=== PATIENT | female | born 1950 | race Caucasian/White ===

== ENCOUNTER → 2017-01-23 | Outpatient (CLI) | payer OTHER ==
[~2017-01-23] MED LIST: CHOL100027 PO; CLB200 PO; CLC100 PO; CLTP PO; CZR50 PO; DIAZ2TAB PO; FLNIN NAE; KETO2SHA TOP; LRS20 PO; METF500T PO; METO50TA7 PO; NITR1CAP32 PO; PHENOBARBITAL 64.8 MG PO; POLY335040 PO; RANI300T2 PO; SALI0.6515 INH; SKINOIN27 TOP; ZOLE5INJ; [UNRECOGNIZED DRUG - OTHER] PO
[2017-01-23 09:51] LABS: ALT/SGPT 26 U/L (12-78); BLOOD UREA NITROGEN 7 mg/dl (7-18); BUN/CREATININE RATIO 14.8 (10-20); CALCIUM 9.1 mg/dl (8.5-10.1); CARBON DIOXIDE 28 mmol/L (21-32); CHLORIDE 99 mmol/L (98-107); CHOLESTEROL 243 mg/dl (0-200); CREATININE 0.46 mg/dl (0.60-1.20); GLUCOSE 91 mg/dl (70-99); POTASSIUM 4.6 mmol/L (3.5-5.1); SODIUM 134 mmol/L (136-145)
[2017-01-23 09:54] LABS: ALB/GLOB RATIO 0.9 (0.9-2); ALKALINE PHOSPHATASE 109 U/L (45-117); AST/SGOT 17 U/L (15-37); CHOLESTEROL/HDL RATIO 6.9; HDL CHOLESTEROL 35 mg/dl; LDL CHOLESTEROL CALCULATED 140 mg/dl; TRIGLYCERIDES 342 mg/dl (0-150); VERY LOW DENSITY LIPOPROT CALC 68 mg/dl
[2017-01-23 10:54] LABS: ESTIMATED AVERAGE GLUCOSE 105 mg/dl; HA1C FLAG Normal (Normal)
== END | disposition home or self-care (01) ==
LOC: C.LAB 07:59
PROVIDERS: ATTEND Family Medicine
DX: Z12.11 Encounter for screening for malignant neoplasm of colon (principal); G40.909 Epilepsy, unspecified, not intractable, without status epilepticus; Z11.59 Encounter for screening for other viral diseases; R79.9 Abnormal finding of blood chemistry, unspecified

== ENCOUNTER → 2017-03-22 | Outpatient (CLI) | payer OTHER ==
--- NOTE | 2017-03-25 08:02 | MAMMOGRAPHY REPORT ---
BILATERAL DIGITAL SCREENING MAMMOGRAM WITH CAD: 03/22/2017 CLINICAL HISTORY: Routine screening. TECHNIQUE: Current study was also evaluated with a Computer Aided Detection (CAD) system. This exam is extremely limited given the patient's condition and inability to tolerate the exam, and only bilat eral cc views could be obtained. COMPARISON: Comparison is made to exams dated: 03/20/2016 mammogram, 03/15/2015 mammogram, 03/11/2014 m ammogram, 03/05/2013 mammogram, 02/29/2012 mammogram, and 02/21/2011 mammogram - [facility] nter. BREAST COMPOSITION: The tissue of both breasts is heterogeneously dense, which may obscure small mas ses. FINDINGS: No suspicious masses, calcifications, or areas of architectural distortion are noted in ei ther breast. There has been no significant interval change compared to prior exams. Scattered bilate ral benign-appearing calcifications are again noted. IMPRESSION: ACR BI-RADS CATEGORY 2: BENIGN Limited exam, as only bilateral CC views could be obtained. Within the limitations of the exam, ther e is no mammographic evidence of malignancy. A 1 year screening mammogram is recommended. The patien t will receive written notification of the results. Approximately 10% of breast cancers are not detected with mammography. A negative mammographic report should not delay biopsy if a clinically suggestive mass is present. Emelia Lozano M.D. /:03/22/2017 15:36:37 Hvac R Tech: Shahrzad Rao, [facility] letter sent: Normal 1/2 BI-RADS Code: ACR BI-RADS Category 2: Benign
== END | disposition home or self-care (01) ==
LOC: C.MAMM 13:57
PROVIDERS: ATTEND Family Medicine
DX: Z12.31 Encounter for screening mammogram for malignant neoplasm of breast (principal)

== ENCOUNTER → 2017-09-03 | Outpatient (CLI) | payer OTHER ==
[~2017-09-03] MED LIST changes: -METO50TA7 PO; +METO50TA8 PO
[2017-09-03 12:25] LABS: ALBUMIN 3.5 gm/dl (3.4-5.0); BLOOD UREA NITROGEN 5 mg/dl (7-18); CALCIUM 8.4 mg/dl (8.5-10.1); CARBON DIOXIDE 22 mmol/L (21-32); CREATININE 0.37 mg/dl (0.60-1.20); GLUCOSE 88 mg/dl (70-99); POTASSIUM 4.4 mmol/L (3.5-5.1); SODIUM 128 mmol/L (136-145)
[2017-09-03 12:29] LABS: ALKALINE PHOSPHATASE 113 U/L (45-117); ALT/SGPT 27 U/L (12-78); AST/SGOT 19 U/L (15-37); CHOLESTEROL 135 mg/dl (0-200); LDL CHOLESTEROL CALCULATED 54 mg/dl; TOTAL PROTEIN 7.8 gm/dl (6.4-8.2)
== END | disposition home or self-care (01) ==
LOC: C.LAB 09:43
PROVIDERS: ATTEND Family Medicine
DX: Z13.9 Encounter for screening, unspecified (principal); Z79.899 Other long term (current) drug therapy; E78.5 Hyperlipidemia, unspecified

== ENCOUNTER 2019-09-27 10:11 | Inpatient (IN) ==
[2019-09-27] MEDS ORDERED: SODIUM CHLORIDE 0.9% 500 ML IV SCH (10:30)
--- NOTE | 2019-09-27 10:40 | Emergency Department Note ---
Impression & Plan Weakness, Acute dehydration, Acute UTI, Diarrhea, Phenobarbital toxicity ED Provider Note Provider: Molina Park MD DATE OF SERVICE: 09/27/2019 CHIEF COMPLAINT: HISTORY OF PRESENT ILLNESS: Patient is a 69-year-old female with a history of cerebral palsy and is nonverbal [facility] urine output decreased abil ity to eat and the diarrhea. Was evaluated here on September 17. Had negative Haydee testing at this time and similar complaints distancing herself and was sent back to [facility]. Been in contact with her primary doctor who put her on Cipro for possible UTI she has a history of been on these meds for about 6 days according to hot plate plywood press laborer. Patient herself is nonverbal and unable to provide additional history. Is been no reported falls or other sick contacts. Evidently did hold her evening dose of diazepam yesterday to see if this would improve things and it really has not. Was able to get in her morning meds this morning. Did obtain [facility] medical record phone encounters indicating the patient has been added [facility] several days ago. Indicate and confirm report that patient's had decreased oral intake and seems a bit less awake. REVIEW OF SYSTEMS: Limited secondary to mental status. PAST MEDICAL HISTORY: As noted above MEDICATIONS: Reviewed nursing notes facility notes significant for Cipro, phenobarbital, diazepam, baclofen SOCIAL HISTORY: Nonverbal currently residing at [facility]. No tobacco use reported. PHYSICAL EXAM: GENERAL: Laying on the stretcher not making eye contact nonverbal, she does have a slight cough Head: Atraumatic EYES: No injection, discharge or icterus. Disconjugate gaze. NECK: Trachea midline. Supple. ENT: Mucous membranes pink and moist. LUNGS: Airway patent. No retractions. Breath sounds diminished. HEART: Regular rate and rhythm. No chest wall tenderness ABDOMEN: Soft and non-tender, may be slightly distended. No guarding or rebound. SKIN: Acyanotic, warm, dry, without rashes EXTREMITIES: Without swelling, tenderness or deformity NEUROLOGICAL: Not making eye contact. Nonverbal. Road Gang Supervisor states the patient is at her neurological baseline. Muscle wasting in all extremities. No response to pain or movement of the lower extremities. Will withdraw the upper extremities. EK bpm normal sinus rhythm. Normal QTC. No PVCs. No acute ST segment elevation or depression. CONTINUOUS CARDIAC MONITORING: was ordered and showed a heart rate of 74 bpm in normal sinus rhythm Hypertension was referred to the hospitalist/PCP HOSPITAL COURSE: 1020 Patient was first seen and H&P performed. 1247 Patient reassessed and updated patient's hot plate plywood press laborer. [facility] hospitalist be contacted. Patient's laboratory studies and imaging reviewed. Differential includes Infection, dehydration, metabolic abnormality, hypo /hyperglycemia, electrolyte disturbance, anemia, hypoxia, cardiac sources, intracerebral event, toxicologic, neurologic, as well as other pathologies. IMPRESSION/MEDICAL DECISION MAKING: Patient is difficult to examine given her nonverbal status and she does have a complex medical history. Is on multiple medications that may make her somewhat somnolent and also has a history of infections as well/UTIs that could be at play here. Concern for some dehydration given the report of some diarrhea and decreased intake and decreased urination. Has been on Cipro by report of the hot plate plywood press laborer for several days without change and actually some worsening. Abdomen is not safely tender but does appear somewhat distended. Difficult to assess her neurological baseline given again her history of cerebral palsy at its complications. Given this a broad differential was obtained. CT of the head, chest, and abdomen pelvis was obtained. I doubt this represents PE. EKG was completed. Troponin was sent but I doubt ACS. I doubt acute dissection. Symptomatology does not seem that obstructive but again imaging was obtained. CT scan show possibly bronchitis but no other acute pathology. Laboratory studies reveal no significant evidence of pancreatitis or hepatitis. Lactate is elevated at 2.7. BUN is mildly elevated and think this is likely represents some dehydration. Given a fluid bolus. Given resistant history and concern with a urine broad-spectrum vancomycin/aztreonam antibiotic selection was used. I do not feel that she is acutely septic at this point however. Later in discussed with [facility] hospitalist for further evaluation admission here in the hospital given her decreased oral intake and these findings; will hold vancomycin. A jeff placed later after IVF showed clean urine so now questions UTI as a real. Due to difficult with IV status only one blood culture was ob tained prior to administration of antibiotics. Patient has not had significant diarrhea here and by report not having copious amounts but C. difficile colitis could be a consideration if this does worsen. Given lack of colitis findings on the CT and the lack of significant diarrheal symptoms worsening here will hold off on Cdiff testing his time however. Phenobarbital level is significant elevat ed and may be entire cause of her weakness. This should decrease with hydration and holding the med. DIAGNOSIS: Weakness, dehydration, diarrhea, elevated phenobarbital level DISPOSITION: Hospitalist will evaluate Past Med/Surg History Social History Preferred Language: Danish Communication Ability: Impaired Beliefs That Will Affect Care: None marital status: Single Current Living Situation: Other Current Living Situation Comment: [id number] current occupational status: disabled Feels Safe at Home: Yes Smoking Status: Never smoker Hx Alcohol Use: No Hx Substance Use: No Allergies Allergies Allergy/AdvReac Type Severity Reaction Status Date / Time ampicillin Allergy Unknown rash Verified 09/27/19 14:01 carbidopa Allergy Unknown . Verified 09/27/19 11:14 levodopa Allergy Unknown . Verified 09/27/19 11:14 Penicillins Allergy Unknown rash Verified 09/27/19 14:01 Sinemet Allergy Unknown . Verified 05/06/13 12:46 Home Meds Home Medications Medication Instructions Recorded Confirmed atorvastatin 20 mg PO PM 09/05/18 09/27/19 baclofen 20 mg PO QID 09/05/18 09/27/19 calcium carbonate-vit D3-min 1 tab PO DAILY 09/05/18 09/27/19 [Calcium 600 + Minerals] carbamide peroxide [Debrox] 5 drp OTIC (EAR) WK 09/05/18 09/27/19 cholecalciferol (vitamin D3) 1,000 unit PO DAILY 09/05/18 09/27/19 [Vitamin D3] dextran 70-hypromellose 1 - 2 drp OPHTHALMIC (EYE) 09/05/18 09/27/19 [Artificial Tears([id number])] DIRECTED diazepam 5 mg PO TID 09/05/18 09/27/19 fluticasone propionate 2 spray INTRANASAL DAILY 09/05/18 09/27/19 loperamide 2 mg PO DIRECTED 09/05/18 09/27/19 loratadine 10 mg PO DAILY 09/05/18 09/27/19 losartan 50 mg PO QPM 09/05/18 09/27/19 meloxicam 7.5 mg PO DAILY 09/05/18 09/27/19 metformin 500 mg PO DAILY 09/05/18 09/27/19 metoprolol succinate 50 mg PO QPM 09/05/18 09/27/19 polyethylene glycol 3350 [Miralax] 17 g PO DAILY PRN 09/05/18 09/27/19 docusate sodium [Stool Softener] 200 mg PO DAILY 09/18/19 09/27/19 estradiol [Estrace] 2 g VAGINAL 2XWK 09/18/19 09/27/19 famotidine 40 mg PO DAILY 09/18/19 09/27/19 fluconazole 100 mg PO DAILY 09/18/19 09/27/19 [id number] 1 tab PO DAILY 09/18/19 09/27/19 [Cerovite Senior] olopatadine 1 drp OPHTHALMIC (EYE) DAILY 09/18/19 09/27/19 phenobarbital 120 mg PO DAILY 09/18/19 09/27/19 sodium chloride [Saline Nasal Mist] 2 spray INTRANASAL DAILY 09/18/19 09/27/19 Results & Data (ED) Vital Signs Vital Signs - 24 hr 09/27/19 10:27 09/27/19 12:09 09/27/19 13:49 Temperature 36.6 C Temperature Source Oral Pulse Rate 89 Pulse Rate [Left Finger] 73 72 Pulse Rhythm Regular Pulse Strength Normal Respiratory Rate 20 8 L 10 L Respiratory Effort / Characteristics Non-Labored Spontaneous Respiratory Depth Normal Respiratory Pattern Regular Blood Pressure 153/72 H Blood Pressure [Right Arm] 127/64 148/66 H Blood Pressure Mean 99 Blood Pressure Mean [Right Arm] 85 93 Blood Pressure Position Sitting Pulse Oximetry 96 97 94 Oxygen Delivery Method Room Air Sepsis Recent Fever Within 48 Hours No Sepsis New/Unexplained Change in Mental Status No Sepsis Action Taken by Nursing No Action Required Laboratory Data Result diagrams: 09/27/19 14:16 09/27/19 15:03 Lab Results 09/27/19 09/27/19 09/27/19 Range/Units 12:04 12:04 12:04 WBC 7.13 (4.8-10.8) K/uL RBC 4.24 (4.2-5.4) M/uL Hgb 14.0 (12.0-16.0) g/dL Hct 43.0 (37-47) % MCV 101.4 H (80-100) fL MCH 33.0 (25-34) pg MCHC 32.6 (32-36) g/dL RDW Std Deviation 52.0 H (36.4-46.3) fL RDW Coeff of Con 14.0 (11.5-14.5) % Plt Count 247 (130-400) K/uL MPV 10.4 (7.4-10.4) fL Immature Gran % (Auto) 0.3 % Neut % (Auto) 63.6 % Lymph % (Auto) 22.6 % [place] % (Auto) 7.3 % Eos % (Auto) 5.9 % Baso % (Auto) 0.3 % Immature Gran # (Auto) 0.02 (0.00-0.02) K/uL Neut # (Auto) 4.54 (1.4-6.5) K/uL Lymph # (Auto) 1.61 (1.2-3.4) K/uL [place] # (Auto) 0.52 (0.11-0.59) K/uL Eos # (Auto) 0.42 (0-0.5) K/uL Baso # (Auto) 0.02 (0-0.2) K/uL PT 12.5 H (9.0-12.0) Seconds INR 1.2 H (0.9-1.1) Sodium 139 (136-145) mmol/L Potassium 3.8 (3.5-5.1) mmol/L Chloride 108 H (98-107) mmol/L Carbon Dioxide 28 (21-32) mmol/L Anion Gap 3.0 (3-11) BUN 26 H (7-18) mg/dl Creatinine 0.62 (0.6-1.2) mg/dl Est Cr Clr Drug Dosing Not Reportable Est GFR ( Amer) 106.6 Est GFR (Non-Af Amer) 92.0 BUN/Creatinine Ratio 42.5 H (10-20) Glucose 85 (70-99) mg/dl Lactate (0.4-2.0) mmol/L Calcium 9.5 (8.5-10.1) mg/dl Magnesium 2.0 (1.8-2.4) mg/dl Total Bilirubin 0.2 (0.2-1) mg/dl AST 31 (15-37) U/L ALT 33 (12-78) U/L Alkaline Phosphatase 105 (45-117) U/L Ammonia (11-32) umol/L Troponin I < 0.015 (0-0.045) ng/ml Total Protein 8.8 H (6.4-8.2) gm/dl Albumin 3.8 (3.4-5.0) gm/dl Globulin 5.0 H (2.5-4.0) gm/dl Albumin/Globulin Ratio 0.8 L (0.9-2) Lipase 96 (73-393) U/L TSH 2.860 (0.300-4.500) uIu/ml Urine Color Urine Appearance (Clear) Urine pH (4.5-7.5) Ur Specific [place] (1.000-1.030) Urine Protein (Negative) Urine Glucose (UA) (Negative) Urine Ketones (Negative) Urine Blood (Negative) Urine Nitrite (Negative) Urine Bilirubin (Negative) Urine Urobilinogen (Negative) Ur Leukocyte Esterase (Negative) Phenobarbital (15-40) mcg/mL 09/27/19 09/27/19 09/27/19 Range/Units 12:04 12:04 12:04 WBC (4.8-10.8) K/uL RBC (4.2-5.4) M/uL Hgb (12.0-16.0) g/dL Hct (37-47) % MCV (80-100) fL MCH (25-34) pg MCHC (32-36) g/dL RDW Std Deviation (36.4-46.3) fL RDW Coeff of Con (11.5-14.5) % Plt Count (130-400) K/uL MPV (7.4-10.4) fL Immature Gran % (Auto) % Neut % (Auto) % Lymph % (Auto) % [place] % (Auto) % Eos % (Auto) % Baso % (Auto) % Immature Gran # (Auto) (0.00-0.02) K/uL Neut # (Auto) (1.4-6.5) K/uL Lymph # (Auto) (1.2-3.4) K/uL [place] # (Auto) (0.11-0.59) K/uL Eos # (Auto) (0-0.5) K/uL Baso # (Auto) (0-0.2) K/uL PT (9.0-12.0) Seconds INR (0.9-1.1) Sodium (136-145) mmol/L Potassium (3.5-5.1) mmol/L Chloride (98-107) mmol/L Carbon Dioxide (21-32) mmol/L Anion Gap (3-11) BUN (7-18) mg/dl Creatinine (0.6-1.2) mg/dl Est Cr Clr Drug Dosing Est GFR ( Amer) Est GFR (Non-Af Amer) BUN/Creatinine Ratio (10-20) Glucose (70-99) mg/dl Lactate 2.7 H* (0.4-2.0) mmol/L Calcium (8.5-10.1) mg/dl Magnesium (1.8-2.4) mg/dl Total Bilirubin (0.2-1) mg/dl AST (15-37) U/L ALT (12-78) U/L Alkaline Phosphatase (45-117) U/L Ammonia 17.2 (11-32) umol/L Troponin I (0-0.045) ng/ml Total Protein (6.4-8.2) gm/dl Albumin (3.4-5.0) gm/dl Globulin (2.5-4.0) gm/dl Albumin/Globulin Ratio (0.9-2) Lipase (73-393) U/L TSH (0.300-4.500) uIu/ml Urine Color Urine Appearance (Clear) Urine pH (4.5-7.5) Ur Specific [place] (1.000-1.030) Urine Protein (Negative) Urine Glucose (UA) (Negative) Urine Ketones (Negative) Urine Blood (Negative) Urine Nitrite (Negative) Urine Bilirubin (Negative) Urine Urobilinogen (Negative) Ur Leukocyte Esterase (Negative) Phenobarbital 61.2 H* (15-40) mcg/mL 09/27/19 Range/Units 13:36 WBC (4.8-10.8) K/uL RBC (4.2-5.4) M/uL Hgb (12.0-16.0) g/dL Hct (37-47) % MCV (80-100) fL MCH (25-34) pg MCHC (32-36) g/dL RDW Std Deviation (36.4-46.3) fL RDW Coeff of Con (11.5-14.5) % Plt Count (130-400) K/uL MPV (7.4-10.4) fL Immature Gran % (Auto) % Neut % (Auto) % Lymph % (Auto) % [place] % (Auto) % Eos % (Auto) % Baso % (Auto) % Immature Gran # (Auto) (0.00-0.02) K/uL Neut # (Auto) (1.4-6.5) K/uL Lymph # (Auto) (1.2-3.4) K/uL [place] # (Auto) (0.11-0.59) K/uL Eos # (Auto) (0-0.5) K/uL Baso # (Auto) (0-0.2) K/uL PT (9.0-12.0) Seconds INR (0.9-1.1) Sodium (136-145) mmol/L Potassium (3.5-5.1) mmol/L Chloride (98-107) mmol/L Carbon Dioxide (21-32) mmol/L Anion Gap (3-11) BUN (7-18) mg/dl Creatinine (0.6-1.2) mg/dl Est Cr Clr Drug Dosing Est GFR ( Amer) Est GFR (Non-Af Amer) BUN/Creatinine Ratio (10-20) Glucose (70-99) mg/dl Lactate (0.4-2.0) mmol/L Calcium (8.5-10.1) mg/dl Magnesium (1.8-2.4) mg/dl Total Bilirubin (0.2-1) mg/dl AST (15-37) U/L ALT (12-78) U/L Alkaline Phosphatase (45-117) U/L Ammonia (11-32) umol/L Troponin I (0-0.045) ng/ml Total Protein (6.4-8.2) gm/dl Albumin (3.4-5.0) gm/dl Globulin (2.5-4.0) gm/dl Albumin/Globulin Ratio (0.9-2) Lipase (73-393) U/L TSH (0.300-4.500) uIu/ml Urine Color Yellow Urine Appearance Slightly Cloudy (Clear) Urine pH 5.0 (4.5-7.5) Ur Specific [place] >= 1.030 (1.000-1.030) Urine Protein Negative (Negative) Urine Glucose (UA) Negative (Negative) Urine Ketones Negative (Negative) Urine Blood Negative (Negative) Urine Nitrite Negative (Negative) Urine Bilirubin Negative (Negative) Urine Urobilinogen Negative (Negative) Ur Leukocyte Esterase Negative (Negative) Phenobarbital (15-40) mcg/mL Administered Medications Diazepam (Valium) 5 mg PO TID JAYLA Stop: 10/27/19 13:59 Last Admin: 09/27/19 15:48 Dose: Not Given Documented by: [id number] Discontinued Medications Sodium Chloride (Nss) 500 mls @ 999 mls/hr IV .Q31M JAYLA Stop: 09/27/19 11:00 Last Infusion: 09/27/19 14:54 Dose: 0 mls/hr Documented by: [id number] Admin: 09/27/19 12:08 Dose: 999 mls/hr Documented by: [id number] Vancomycin HCl 1,000 mg/ (Sodium Chloride) 520 mls @ 200 mls/hr IV NOW ONE Stop: 09/27/19 14:46 Last Admin: 09/27/19 13:19 Dose: Not Given Documented by: [id number] Aztreonam 1,000 mg/ Dextrose 110 mls @ 100 mls/hr IV NOW STA; Protocol Stop: 09/27/19 13:16 Last Infusion: 09/27/19 14:54 Dose: 0 mls/hr Documented by: [id number] Admin: 09/27/19 12:46 Dose: 100 mls/hr Documented by: [id number] Sodium Chloride (Nss 1000ml) 1,000 mls @ 999 mls/hr IV .Q1H1M ONE Stop: 09/27/19 16:30 Last Admin: 09/27/19 15:47 Dose: 999 mls/hr Documented by: [id number] Discharge Plan Visit Data *Final* Discharge Date/Time: 09/27/19 15:16 Chief Complaint: Illness Stated Complaint: respiratory ED Provider: Molina Park Discharge Problem: Weakness, Acute dehydration, Acute UTI, Diarrhea, Phenobarbital toxicity Patient Disposition: Admitted As Inpatient Discharge Instructions Interventions: ED Discharge Assessment Last Done: 09/27/19 15:16 Discharge Problem: Diarrhea Qualifiers: Diarrhea type: unspecified type Qualified Code(s): R19.7 - Diarrhea, unspecified Phenobarbital toxicity Qualifiers: Encounter type: initial encounter Injury intent: accidental or unintentional Qualified Code(s): T42.3X1A - Poisoning by barbiturates, accidental (unintentional), initial encounter
--- NOTE | 2019-09-27 11:12 | CT Scan Report ---
CT head/brain wo con CLINICAL HISTORY: Acute change in mental status COMPARISON STUDY: September 18, 2019 TECHNIQUE: Axial CT of the brain is performed from the vertex to the skull base. IV contrast was not administered for this examination. A dose lowering technique was utilized adhering to the principles of ALARA. CT DOSE: FINDINGS: No intra or extra-axial mass lesions are visualized. There is no CT evidence of acute cortical infarc tion. There is no evidence of midline shift. There is no acute hemorrhage. No calvarial fractures ar e visualized. There are patchy white matter hypodensities likely on a small vessel basis. There is no evidence of pathologic ventricular dilatation. There is no evidence of acute sinusitis There is disconjugate ocular gaze. This finding was present on the preceding study. IMPRESSION: 1. Disconjugate ocular gaze 2. No acute intracranial findings. ACT 112: Negative or not required by law. Electronically signed by: Peyman Gauthier M.D. 09/27/2019 11:11 AM
--- NOTE | 2019-09-27 11:17 | CT Scan Report ---
CT chest wo con CLINICAL HISTORY: Acute change in mental status, chest pain, COMPARISON STUDY: 09/18/2019 CT DOSE: 1050.51 mGy.cm TECHNIQUE: CT of the thorax was performed from the thoracic inlet to the lung bases. Images are revi ewed in the axial, sagittal, and coronal planes. IV contrast was not administered for this examinatio n. A dose lowering technique was utilized adhering to the principles of ALARA. FINDINGS: Thyroid: Imaged portions of the thyroid gland are normal in appearance. Thoracic aorta: There is no evidence of thoracic aortic dilatation. Heart: There are coronary artery calcifications. There is no pericardial effusion. Lungs and pleural spaces: There are no significant pleural effusions. There are dependent airspace op acities, likely atelectatic. No endobronchial lesions are visualized. There is a small amount of muco us within the tracheobronchial tree. There is minor lower lobe bronchial wall thickening. Mediastinum: There is a stable mildly enlarged 12 mm subcarinal lymph node Danyelle: There is no evidence of pathologic hilar adenopathy given the limitations of a noncontrast stud y Axilla: There is no evidence of pathologic axillary lymphadenopathy Upper abdomen: There is gallbladder distention. Skeletal structures: There are no lytic or blastic osseous lesions. IMPRESSION: 1. Dependent lower lung zone airspace opacities, likely atelectatic. 2. Coronary calcifications 3. No pleural effusions 4. Stable mildly enlarged subcarinal lymph node 5. Small amount of with secretions within the tracheobronchial tree. Minor lower lobe bronchial wall thickening. ACT 112: Negative or not required by law. Electronically signed by: Peyman Gauthier M.D. 09/27/2019 11:16 AM
--- NOTE | 2019-09-27 11:22 | CT Scan Report ---
CT SCAN OF THE ABDOMEN AND PELVIS WITHOUT CONTRAST CLINICAL HISTORY: nausea, diarrhea, weakness COMPARISON STUDY: 09/18/2019 TECHNIQUE: CT scan of the abdomen and pelvis was performed from the lung bases to the proximal femurs . Images are reviewed in the axial, sagittal, and coronal planes. IV contrast was not administered fo r this examination. A dose lowering technique was utilized adhering to the principles of ALARA. CT DOSE: FINDINGS: Lower chest: There are coronary artery calcifications. There are lower lung zone airspace opacities, likely atelectatic Liver: The unenhanced liver is normal in size, contour, and attenuation. There is no intrahepatic ryan iary ductal dilatation. Gallbladder: Mildly distended. No calcified stones identified Spleen: Normal in size and attenuation. Pancreas: Unremarkable. Adrenal glands: Unremarkable. Kidneys: No renal, ureteral, or bladder calculi are visualized. There are bilateral renal cysts. The left renal cyst measures 4 cm. The right renal cyst measures 22 mm. Bowel: There are no transition zones indicate bowel obstruction. There is moderate stool within the r ectosigmoid. The rectum measures 6 cm in transverse diameter. There is no acute diverticulitis. The a ppendix is not visualized with certainty. Peritoneum: There is no intraperitoneal free air or abdominal ascites. Vasculature: The abdominal aorta is normal in course and caliber. Adenopathy: None. Pelvic viscera: The bladder, and pelvic viscera are unremarkable. Skeletal structures: Chronic destructive changes involve the right femoral head. There are advanced a rthritic changes present within the left hip. IMPRESSION: 1. No evidence of bowel obstruction. No evidence of free air 2. Moderate rectosigmoid stool 3. Mildly distended gallbladder. No calcified calculi identified 4. Bilateral renal cysts 5. Chronic destructive changes involving the right femoral head ACT 112: Negative or not required by law. Electronically signed by: Peyman Gauthier M.D. 09/27/2019 11:21 AM
--- NOTE | 2019-09-27 11:37 | XRay Report ---
XR chest 1V portable CLINICAL HISTORY: weakness COMPARISON STUDY: 09/18/2019 FINDINGS: The heart is at the upper limits of normal in size. There is no overt failure. There is no lobar consolidation. There is mild chronic basilar interstitial thickening more pronounced on the lef t. There is minor blunting of the left lateral costophrenic angle.[ IMPRESSION: No active disease in the chest. ACT 112: Negative or not required by law. Electronically signed by: Peyman Gauthier M.D. 09/27/2019 11:35 AM
[2019-09-27] MEDS ORDERED: VANCOMYCIN CONSULT ACTIVE PRN (12:11)
[2019-09-27] MEDS ORDERED: AZTREONAM 1,000 MG in DEXTROSE 5% 100 ML IV STA (12:11)
[2019-09-27] MEDS ORDERED: VANCOMYCIN HCL 1,000 MG in SODIUM CHLORIDE 0.9% 500 ML IV ONE (12:11)
[2019-09-27 12:13] LABS: Basophils # (auto) 0.02 K/uL (0-0.2); Basophils % (auto) 0.3 %; Eosinophils # (auto) 0.42 K/uL (0-0.5); Eosinophils % (auto) 5.9 %; Immature Granulocytes # (auto) 0.02 K/uL (0.00-0.02); Immature Granulocytes % (auto) 0.3 %; Lymphocytes # (auto) 1.61 K/uL (1.2-3.4); Lymphocytes % (auto) 22.6 %; Mean Corpuscular Hgb Conc 32.6 g/dL (32-36); Mean Corpuscular Volume 101.4 fL (80-100); Mean Platelet Volume 10.4 fL (7.4-10.4); Monocytes # (auto) 0.52 K/uL (0.11-0.59); Monocytes % (auto) 7.3 %; Neutrophils # (auto) 4.54 K/uL (1.4-6.5); Neutrophils % (auto) 63.6 %; Platelet Count 247 K/uL (130-400); Red Blood Count 4.24 M/uL (4.2-5.4); White Blood Count 7.13 K/uL (4.8-10.8)
[2019-09-27 12:30] LABS: Alanine Aminotransferase 33 U/L (12-78); Albumin Level 3.8 gm/dl (3.4-5.0); Aspartate Aminotransferase 31 U/L (15-37); BUN Creatinine Ratio 42.5 (10-20); Blood Urea Nitrogen 26 mg/dl (7-18); Calcium 9.5 mg/dl (8.5-10.1); Carbon Dioxide 28 mmol/L (21-32); Chloride 108 mmol/L (98-107); Est GFR (African American) 106.6; Glucose 85 mg/dl (70-99); Lipase 96 U/L (73-393); Potassium 3.8 mmol/L (3.5-5.1); Sodium 139 mmol/L (136-145)
[2019-09-27 12:35] LABS: INR 1.2 (0.9-1.1); Prothrombin Time 12.5 Seconds (9.0-12.0)
[2019-09-27 12:41] LABS: Albumin Globulin Ratio 0.8 (0.9-2); Alkaline Phosphatase 105 U/L (45-117); Bilirubin,Total 0.2 mg/dl (0.2-1); Total Protein 8.8 gm/dl (6.4-8.2); Troponin I < 0.015 ng/ml (0-0.045)
--- NOTE | 2019-09-27 13:27 | History & Physical Report ---
Date of Service September 27, 2019 Assessment & Plan (1) Altered mental status: -This is a 69 year old female with cerebral palsy and is baseline nonverbal from [facility] with recent 09/18/2019 ED presentation and also outpatient treatment for urinary tract infection who is sent to the ED because of recent lethargy and decrease in appetite -altered mental status possibly from Dehydration, less likely to be possible urinary infection, rule out seizure -admission Head CT negative for stroke -management as below Cerebral palsy (spastic Quadriplegic Cerebral Palsy) History of Seizure Disorder -at baseline, patient is wheelchair bound and nonverbal. as per medical information officer from [facility], patient utilizes a electric wheelchair which she controls with her neck. medical information officer reports that patient has good level of hearing at baseline and that when she was about to be sent to ED for 09/27/2019 evaluation, that patient had opened her eyes when she was informed of these plans -home medication of Phenobarbital if 60 mg daily. admission Phenobarbital level is elevated as 61.2 mcg/ml and normal reference lab is 15 to 40 mcg mcg/ml. will hold Phenobarbital medication given lethargy. monitor mental status -EEG is ordered, requesting inpatient neurology consult on future phenobarbital management -on baclofen 20 mg four times a day (8AM, 12 PM, 4PM, 8PM) to prevent spasms and Diazepam 5 mg TID (8 AM, 4 PM, 8 PM), would continue this dosing if patient awake and can take these oral medications to prevent potential withdrawal symptoms from detention use -monitor on telemetry for now -speech and swallow evaluation, PT/OT evaluations Possible urinary tract infection -recent hospitalization -career development consultant from [facility] brings paper work which reports patient had been on Fluconazole from 09/08/2019 to 09/22/2019 and also Bactrim from 09/19/2019 to 09/22/2019, and some dosing or ciprofloxacin in recent past -ED provider concern for dirty urine sample and started patient empirically on aztreonam 1 gram IV in the ED on 09/27/2019. due to patient's history of urinary tract infections and drug allergies. Vancomycin as ordered by ED physician was stopped by hospitalist to protect renal function after discussion with ED provider -The UA results from the ED appears to be negative for urinary tract infection. empirically continue aztreonam as 1 gram q12 hours for now and repeat another UA when patient on medical mojica. -The paperwork from [facility] document that allergies to Ampicillin, Penicillins, and Sinamet leads to rash only so beta lactams should not be absolutely excluded if needed for antibiotic de-escalation Dehydration Elevated Lactic acid -career development consultant from [facility] reports that patient generally not eating food or drinking fluids and is generally sleeping since returning toe [facility] from recent hospitalization -admission lactic acid 2.7, given IV fluids in the ED, trend lactic acid, give additional IV fluids as needed to normalize lactic acid and then continue maintenance IV fluids -speech and swallow evaluation and advance diet as tolerated, vmware systems administrator consult also requested while inpatient Type 2 diabetes mellitus without detention current use of insulin -hold home dose metformin especially as patient presents with elevated lactic acid -instead, will place patient on sliding scale insulin based on blood sugar glucose once she can eat Hypertension -continue home dose losartan 50 mg daily and metoprolol succinate ER 50 mg daily when patient can eat, home dose atorvastatin 20 mg held for now. Gastroesophageal reflux disease (GERD) -when patient can eat, should order PPI and H2 jackson other medications -continue home dose nasal sprays and eye drops -when patient can eat, her vitamin supplements and calcium may be continued Code Status: Patient does not have advance directives as per knowledge of the medical information officer from [facility]. Admitting hospitalist called patient's sister Radha Hobbs ([phone]) and she reports that at this time of hospitalization that the patient would not want to be resuscitated or intubated if cardiac- respiratory arrest so the Code Status is DNR/DNI My colleague Dr. Cobb will be taking care of the patient starting on 09/28/2019 History of Present Illness This is a 69 year old female with cerebral palsy and is baseline nonverbal from [facility] with recent 09/18/2019 ED presentation and also outpatient treatment for urinary tract infection who is sent to the ED because of recent lethargy and decrease in appetite. career development consultant from [facility] brings paper work which reports patient had been on Fluconazole from 09/08/2019 to 09/22/2019 and also Bactrim from 09/19/2019 to 09/22/2019, and some dosing or ciprofloxacin in recent past. at baseline, patient is wheelchair bound and nonverbal. as per medical information officer from [facility], patient utilizes a electric wheelchair which she controls with her neck. medical information officer reports that patient has good level of hearing at baseline and that when she was about to be sent to ED for 09/27/2019 evaluation, that patient had opened her eyes when she was informed of these plans. admission lactic acid 2.7, given IV fluids in the ED. ED provider concern for dirty urine sample and started patient empirically on aztreonam 1 gram IV in the ED on 09/27/2019. due to patient's history of urinary tract infections and drug allergies. Vancomycin as ordered by ED physician was stopped by hospitalist to protect renal function after discussion with ED provider. The UA results from the ED appears to be negative for urinary tract infection. When examined by hospitalist, patient appears to have facial droop of the mouth that her medical information officer at bedside reports is chronic, patient not verbally arousable or arousable by touch. Patient did make a moaning sound. She had some resistance for physician to open her eyes but pupillary response to light and eye movements are seen Family History: as per patient's sister, their father had stroke and ttheri mother had heart attack Allergies: The paperwork from [employer] document that allergies to Ampicillin, Penicillins, and Sinamet leads to rash only so beta lactams should not be absolutely excluded if needed for antibiotic de-escalation Primary Care Provider: Mal Pemberton MD Allergies Allergy/AdvReac Type Severity Reaction Status Date / Time ampicillin Allergy Unknown rash Verified 09/27/19 14:01 carbidopa Allergy Unknown . Verified 09/27/19 11:14 levodopa Allergy Unknown . Verified 09/27/19 11:14 Penicillins Allergy Unknown rash Verified 09/27/19 14:01 Sinemet Allergy Unknown . Verified 05/06/13 12:46 Home Medications Home Medications Medication Instructions Recorded Confirmed Type atorvastatin 20 mg PO PM 09/05/18 09/27/19 History baclofen 20 mg PO QID 09/05/18 09/27/19 History calcium carbonate-vit D3-min 1 tab PO DAILY 09/05/18 09/27/19 History [Calcium 600 + Minerals] carbamide peroxide [Debrox] 5 drp OTIC (EAR) WK 09/05/18 09/27/19 History cholecalciferol (vitamin D3) 1,000 unit PO DAILY 09/05/18 09/27/19 History [Vitamin D3] dextran 70-hypromellose 1 - 2 drp OPHTHALMIC (EYE) 09/05/18 09/27/19 History [Artificial Tears([id number])] DIRECTED diazepam 5 mg PO TID 09/05/18 09/27/19 History fluticasone propionate 2 spray INTRANASAL DAILY 09/05/18 09/27/19 History loperamide 2 mg PO DIRECTED 09/05/18 09/27/19 History loratadine 10 mg PO DAILY 09/05/18 09/27/19 History losartan 50 mg PO QPM 09/05/18 09/27/19 History meloxicam 7.5 mg PO DAILY 09/05/18 09/27/19 History metformin 500 mg PO DAILY 09/05/18 09/27/19 History metoprolol succinate 50 mg PO QPM 09/05/18 09/27/19 History polyethylene glycol 3350 [Miralax] 17 g PO DAILY PRN 09/05/18 09/27/19 History docusate sodium [Stool Softener] 200 mg PO DAILY 09/18/19 09/27/19 History estradiol [Estrace] 2 g VAGINAL [id number] 09/18/19 09/27/19 History famotidine 40 mg PO DAILY 09/18/19 09/27/19 History fluconazole 100 mg PO DAILY 09/18/19 09/27/19 History [id number] 1 tab PO DAILY 09/18/19 09/27/19 History [Cerovite Senior] olopatadine 1 drp OPHTHALMIC (EYE) DAILY 09/18/19 09/27/19 History phenobarbital 120 mg PO DAILY 09/18/19 09/27/19 History sodium chloride [Saline Nasal Mist] 2 spray INTRANASAL DAILY 09/18/19 09/27/19 History Past Med/Surg History Social History Preferred Language: [place] marital status: Single Current Living Situation Comment: Alf current occupational status: disabled Feels Safe at Home: Yes Smoking Status: Never smoker Review of Systems Review of Systems: Unobtainable due to cognitive status Physical Exam Constitutional: + lethargic Eyes: She had some resistance for physician to open her eyes but pupillary response to light and eye movements are seen ENMT: When examined by hospitalist, patient appears to have facial droop of the mouth that her medical information officer at bedside reports is chronic Neck: normal visual inspection Respiratory: normal respiratory effort, lungs clear to auscultation normal respiratory effort Cardiovascular: Rate/Rhythm: regular rate and regular rhythm Gastrointestinal (Abdomen): normal bowel sounds, soft, nontender, no hepatosplenomegaly Neurologic: When examined by hospitalist, patient appears to have facial droop of the mouth that her medical information officer at bedside reports is chronic, patient not verbally arousable or arousable by touch. Patient did make a moaning sound. She had some resistance for physician to open her eyes but pupillary response to light and eye movements are seen Results & Data Results & Data ([facility]) Vital Signs (Past 12 Hours) Vital Signs Temp Pulse Pulse Resp BP BP Pulse Ox 09/27/19 12:09 73 8 L 127/64 97 09/27/19 10:27 36.6 C 89 20 153/72 H 96 (1) Altered mental status Altered mental status type: unspecified Qualified Code(s): R41.82 - Altered mental status, unspecified
[2019-09-27] MEDS ORDERED: POLYETHYLENE (MIRALAX) 17 GM PACK PO PRN (13:31)
[2019-09-27] MEDS ORDERED: GLUCOSE 10 TABS/TUBE PO PRN (13:37)
[2019-09-27] MEDS ORDERED: GLUCOSE 40% GEL 15 GM TUBE PO PRN (13:37)
[2019-09-27] MEDS ORDERED: CARBOHYDRATES FOR HYPOGLYCEMIA PO PRN (13:37)
[2019-09-27] MEDS ORDERED: DEXTROSE 50% 50 ML SYRINGE IV PRN (13:37)
[2019-09-27] MEDS ORDERED: GLUCAGON FOR INJ 1 MG VIAL SQ PRN (13:37)
[2019-09-27 13:58] LABS: Appearance Urine Slightly Cloudy (Clear); Bilirubin Urine Negative (Negative); Blood Urine Negative (Negative); Color Urine Yellow; Glucose Urine UA Negative (Negative); Ketones Urine Negative (Negative); Leukocyte Esterase Urine Negative (Negative); Nitrite Urine Negative (Negative); Protein Urine Negative (Negative); Specific Gravity Urine >= 1.030 (1.000-1.030); Urobilinogen Urine Negative (Negative)
[2019-09-27 14:23] LABS: Basophils # (auto) 0.04 K/uL (0-0.2); Basophils % (auto) 0.4 %; Eosinophils % (auto) 7.2 %; Hematocrit (blood only) 39.7 % (37-47); Immature Granulocytes # (auto) 0.06 K/uL (0.00-0.02); Immature Granulocytes % (auto) 0.6 %; Lymphocytes # (auto) 1.88 K/uL (1.2-3.4); Lymphocytes % (auto) 19.4 %; Mean Corpuscular Hemoglobin 32.6 pg (25-34); Mean Corpuscular Hgb Conc 32.7 g/dL (32-36); Mean Corpuscular Volume 99.5 fL (80-100); Mean Platelet Volume 10.2 fL (7.4-10.4); Monocytes # (auto) 0.85 K/uL (0.11-0.59); Monocytes % (auto) 8.8 %; Neutrophils # (auto) 6.14 K/uL (1.4-6.5); Neutrophils % (auto) 63.6 %; Platelet Count 212 K/uL (130-400); RDW Coefficient of Variation 13.7 % (11.5-14.5); RDW Standard Deviation 49.9 fL (36.4-46.3); Red Blood Count 3.99 M/uL (4.2-5.4); White Blood Count 9.67 K/uL (4.8-10.8)
[2019-09-27] MEDS ORDERED: SODIUM CHLORIDE 0.9% 1000ML 1,000 ML IV ONE (15:30)
[2019-09-27 15:32] LABS: Alanine Aminotransferase 29 U/L (12-78); Albumin Globulin Ratio 0.8 (0.9-2); Albumin Level 3.3 gm/dl (3.4-5.0); Alkaline Phosphatase 88 U/L (45-117); Aspartate Aminotransferase 27 U/L (15-37); BUN Creatinine Ratio 70.4 (10-20); Bilirubin,Total 0.1 mg/dl (0.2-1); Blood Urea Nitrogen 28 mg/dl (7-18); Calcium 8.8 mg/dl (8.5-10.1); Carbon Dioxide 23 mmol/L (21-32); Chloride 111 mmol/L (98-107); Est GFR (African American) 123.2; Est GFR (Non-African American) 106.3; Globulin 4.3 gm/dl (2.5-4.0); Glucose 86 mg/dl (70-99); Potassium 5.4 mmol/L (3.5-5.1); Sodium 141 mmol/L (136-145); Total Protein 7.6 gm/dl (6.4-8.2)
[2019-09-27] MEDS ORDERED: SODIUM CHLORIDE 0.9% 1000ML 1,000 ML IV SCH (15:45)
[2019-09-27] MEDS: diazePAM 5 MG TABLET PO SCH ×2 (15:48→22:19)
[2019-09-27] MEDS: BACLOFEN 20 MG TAB PO SCH ×2 (17:12→22:13)
[2019-09-27 17:25] LABS: BUN Creatinine Ratio 76.6 (10-20); Blood Urea Nitrogen 27 mg/dl (7-18); Carbon Dioxide 22 mmol/L (21-32); Chloride 113 mmol/L (98-107); Est GFR (African American) 128.7; Glucose 82 mg/dl (70-99); Sodium 143 mmol/L (136-145)
[2019-09-27] MEDS: INSULIN ASPART 100 UNITS/ML 3 ML PEN SC SCH ×2 (17:27→22:14)
[2019-09-27] MEDS: PATIENT'S HEIGHT AND/OR WEIGHT NEEDED SCH ×2 (17:28→17:38)
[2019-09-27] MEDS ORDERED: D5W AND 1/2NSS 1,000 ML IV SCH (19:30)
[2019-09-27 20:27] LABS: Potassium 6.2 mmol/L (3.5-5.1)
[2019-09-27] MEDS ORDERED: LOSARTAN POTASSIUM 50 MG TAB PO SCH (21:00)
[2019-09-27] MEDS: METOPROLOL SUCC 50MG EXT REL TAB PO SCH (22:13)
[2019-09-28] MEDS: AZTREONAM 1,000 MG in DEXTROSE 5% 100 ML IV SCH ×2 (03:31→14:30)
[2019-09-28 06:21] LABS: Estimated Average Glucose 111 mg/dl; Hemoglobin A1C 5.5 % (4.5-5.6)
[2019-09-28 06:32] LABS: Basophils # (auto) 0.01 K/uL (0-0.2); Basophils % (auto) 0.1 %; Eosinophils # (auto) 0.47 K/uL (0-0.5); Hematocrit (blood only) 37.2 % (37-47); Hemoglobin 12.3 g/dL (12.0-16.0); Immature Granulocytes # (auto) 0.02 K/uL (0.00-0.02); Immature Granulocytes % (auto) 0.3 %; Lymphocytes # (auto) 1.14 K/uL (1.2-3.4); Lymphocytes % (auto) 14.6 %; Mean Corpuscular Hemoglobin 33.1 pg (25-34); Mean Corpuscular Hgb Conc 33.1 g/dL (32-36); Mean Platelet Volume 10.4 fL (7.4-10.4); Monocytes # (auto) 0.52 K/uL (0.11-0.59); Monocytes % (auto) 6.6 %; Neutrophils # (auto) 5.67 K/uL (1.4-6.5); Neutrophils % (auto) 72.4 %; Platelet Count 135 K/uL (130-400); RDW Coefficient of Variation 13.8 % (11.5-14.5); Red Blood Count 3.72 M/uL (4.2-5.4); White Blood Count 7.83 K/uL (4.8-10.8)
[2019-09-28 06:54] LABS: Albumin Level 3.3 gm/dl (3.4-5.0); BUN Creatinine Ratio 56.1 (10-20); Calcium 8.5 mg/dl (8.5-10.1); Creatinine Clr Calc Pharmacy 131.5 ml/min; Est GFR (African American) 136.9; Est GFR (Non-African American) 118.1; Potassium 3.2 mmol/L (3.5-5.1)
[2019-09-28 06:55] LABS: Albumin Globulin Ratio 0.8 (0.9-2); Bilirubin,Total 0.3 mg/dl (0.2-1); Globulin 4.3 gm/dl (2.5-4.0); Total Protein 7.6 gm/dl (6.4-8.2)
[2019-09-28] MEDS ORDERED: Nursing to Pharmacy Communication ONE ×2 (07:02→11:56)
[2019-09-28] MEDS ORDERED: INSULIN ASPART 100 UNITS/ML 3 ML PEN SC SCH (07:30)
[2019-09-28] MEDS: FLUTICASONE PROPIONATE NA SPR 16 GM BTL SCH (07:46)
[2019-09-28] MEDS ORDERED: SODIUM CHLORIDE 0.65% NA SOLN 45 ML (OCEAN) ONE (07:49)
[2019-09-28] MEDS: SODIUM CHLORIDE 0.65% NA SOLN 45 ML (OCEAN) SCH ×2 (07:54→08:35)
[2019-09-28] MEDS: POTASSIUM CHLORIDE / WTR 10 MEQ/100 ML PLCT IV SCH ×4 (08:35→12:29)
[2019-09-28] MEDS: D5NSS + 20MEQ KCL 20 MEQ/1,000 ML BAG IV SCH ×2 (08:35→21:55)
[2019-09-28] MEDS ORDERED: CARBAMIDE PEROXIDE 6.5% 15 ML BTL OT SCH (09:00)
--- NOTE | 2019-09-28 10:42 | Hospitalist Progress Note ---
Date of Service September 28, 2019 Assessment & Plan (1) Altered mental status: 69 year old female with history of spastic quadriplegic cerebral palsy, hypertension, diabetes, dyslipidemia, GERD, anxiety Presenting with altered mental status/lethargy. Altered mental status, possible encephalopathy secondary to: A. Phenobarbital toxicity --Level on admission 61.2, today 56.1 --Hold phenobarbital --Neurology consulted B. Rule out subclinical seizure --CT head negative for acute process --EEG pending Neurology consulted C. Partially treated UTI --Treated recently with Bactrim and Cipro --UA: Negative --Urine culture pending Blood cultures pending --On empiric aztreonam day #2 D. Dehydration --Poor oral intake while at [facility] --Continue IV fluids Hypokalemia --From poor oral intake --Replace with IV potassium Right upper extremity edema and bilateral lower extremity edema --Check ultrasound to rule out DVT History of spastic quadriplegic cerebral palsy --Resume baclofen, diazepam, phenobarbital Neurology consulted for medication management Diabetes --Hold metformin Insulin sliding scale ordered Hypertension --Hold losartan avoid hypotension GERD --Continue usual famotidine DVT prophylaxis --Lovenox subcutaneous daily CODE STATUS --DNR Disposition --Anticipate return to [facility] when medically stable Admission and Anticipated Discharge Date Admission Date: September 27, 2019 Subjective ff up for altered mental status- lethargy seen resting in bed, awake although appears weak, not in distress slowly tracks examiner with her eyes, and slightly nods head when asked questions also can slightly move her head to directions ROS difficult to assess due to cognitive function otherwise no signs of pain, respiratory issues, diarrhea per RN Dona mouthing suctioning performed PRN no issues overnight Review of Systems Review of Systems: All systems reviewed & are unremarkable except as noted in HPI & below Physical Exam Physical Exam: General- somewhat drowsy but mostly alert, not in distress, breathing with no effort or accessory muscle use Head- atraumatic Eyes- PERRL, EOMI, anicteric ENT- (+) tongue protrusion Neck- supple, no JVD, no adenopathy, no thyromegaly; carotids +2/2, no bruits appreciated (+) flexed to the right Lungs- clear to auscultation bilaterally, no rales/wheezes Heart- normal rate, regular rhythm; no murmur, no gallop, no rub appreciated Abdomen- normal bowel sounds, nondistended, soft, nontender, no masses or hepatosplenomegaly Extremities- (+) mild RUE edema, with mild warmth, erythema, no tenderness (+) mild BL lower extremity edema, no warmth/erythema/tenderness peripheral pulses intact Neuro- somewhat drowsy but mostly alert, difficult to assess full neuro test due to cognitive function EOMs intact, pupils normal neck flexed to the right quadreplegic Skin- warm & dry Results & Data Results & Data ([facility]) Vital Signs (Past 12 Hours) Vital Signs Temp Pulse Pulse Resp BP Pulse Ox 09/28/19 07:38 37.0 C 98 H 18 103/69 91 09/28/19 07:20 98 H 09/28/19 04:18 36.6 C 88 20 132/62 95 09/28/19 00:22 80 09/27/19 23:36 36.7 C 72 18 149/69 H 96 Laboratory Results Laboratory Results - last 24 hr 09/27/19 09/27/19 09/27/19 12:04 12:04 12:04 WBC 7.13 RBC 4.24 Hgb 14.0 Hct 43.0 MCV 101.4 H MCH 33.0 MCHC 32.6 RDW Std Deviation 52.0 H RDW Coeff of Con 14.0 Plt Count 247 MPV 10.4 Immature Gran % (Auto) 0.3 Neut % (Auto) 63.6 Lymph % (Auto) 22.6 [place] % (Auto) 7.3 Eos % (Auto) 5.9 Baso % (Auto) 0.3 Immature Gran # (Auto) 0.02 Neut # (Auto) 4.54 Lymph # (Auto) 1.61 [place] # (Auto) 0.52 Eos # (Auto) 0.42 Baso # (Auto) 0.02 PT 12.5 H INR 1.2 H Sodium 139 Potassium 3.8 Chloride 108 H Carbon Dioxide 28 Anion Gap 3.0 BUN 26 H Creatinine 0.62 Est Cr Clr Drug Dosing Not Reportable Est GFR ( Amer) 106.6 Est GFR (Non-Af Amer) 92.0 BUN/Creatinine Ratio 42.5 H Glucose 85 POC Glucose Estimat Average Glucose Hemoglobin A1c Lactate Calcium 9.5 Magnesium 2.0 Total Bilirubin 0.2 AST 31 ALT 33 Alkaline Phosphatase 105 Ammonia Troponin I < 0.015 Total Protein 8.8 H Albumin 3.8 Globulin 5.0 H Albumin/Globulin Ratio 0.8 L Lipase 96 TSH 2.860 Specimen Hemolysis Urine Color Urine Appearance Urine pH Ur Specific [place] Urine Protein Urine Glucose (UA) Urine Ketones Urine Blood Urine Nitrite Urine Bilirubin Urine Urobilinogen Ur Leukocyte Esterase Phenobarbital Hepatitis C Ab Screen 09/27/19 09/27/19 09/27/19 12:04 12:04 12:04 WBC RBC Hgb Hct MCV MCH MCHC RDW Std Deviation RDW Coeff of Con Plt Count MPV Immature Gran % (Auto) Neut % (Auto) Lymph % (Auto) [place] % (Auto) Eos % (Auto) Baso % (Auto) Immature Gran # (Auto) Neut # (Auto) Lymph # (Auto) [place] # (Auto) Eos # (Auto) Baso # (Auto) PT INR Sodium Potassium Chloride Carbon Dioxide Anion Gap BUN Creatinine Est Cr Clr Drug Dosing Est GFR ( Amer) Est GFR (Non-Af Amer) BUN/Creatinine Ratio Glucose POC Glucose Estimat Average Glucose Hemoglobin A1c Lactate 2.7 H* Calcium Magnesium Total Bilirubin AST ALT Alkaline Phosphatase Ammonia 17.2 Troponin I Total Protein Albumin Globulin Albumin/Globulin Ratio Lipase TSH Specimen Hemolysis Urine Color Urine Appearance Urine pH Ur Specific [place] Urine Protein Urine Glucose (UA) Urine Ketones Urine Blood Urine Nitrite Urine Bilirubin Urine Urobilinogen Ur Leukocyte Esterase Phenobarbital 61.2 H* Hepatitis C Ab Screen 09/27/19 09/27/19 09/27/19 13:36 14:16 14:16 WBC 9.67 RBC 3.99 L Hgb 13.0 Hct 39.7 MCV 99.5 MCH 32.6 MCHC 32.7 RDW Std Deviation 49.9 H RDW Coeff of Con 13.7 Plt Count 212 MPV 10.2 Immature Gran % (Auto) 0.6 Neut % (Auto) 63.6 Lymph % (Auto) 19.4 [place] % (Auto) 8.8 Eos % (Auto) 7.2 Baso % (Auto) 0.4 Immature Gran # (Auto) 0.06 H Neut # (Auto) 6.14 Lymph # (Auto) 1.88 [place] # (Auto) 0.85 H Eos # (Auto) 0.70 H Baso # (Auto) 0.04 PT INR Sodium Cancelled Potassium Cancelled Chloride Cancelled Carbon Dioxide Cancelled Anion Gap Cancelled BUN Cancelled Creatinine Cancelled Est Cr Clr Drug Dosing Cancelled Est GFR ( Amer) Cancelled Est GFR (Non-Af Amer) Cancelled BUN/Creatinine Ratio Cancelled Glucose Cancelled POC Glucose Estimat Average Glucose Hemoglobin A1c Lactate Calcium Cancelled Magnesium Total Bilirubin Cancelled AST Cancelled ALT Cancelled Alkaline Phosphatase Cancelled Ammonia Troponin I Total Protein Cancelled Albumin Cancelled Globulin Cancelled Albumin/Globulin Ratio Cancelled Lipase TSH Specimen Hemolysis Urine Color Yellow Urine Appearance Slightly Cloudy Urine pH 5.0 Ur Specific [place] >= 1.030 Urine Protein Negative Urine Glucose (UA) Negative Urine Ketones Negative Urine Blood Negative Urine Nitrite Negative Urine Bilirubin Negative Urine Urobilinogen Negative Ur Leukocyte Esterase Negative Phenobarbital Hepatitis C Ab Screen 09/27/19 09/27/19 09/27/19 14:16 14:27 15:03 WBC RBC Hgb Hct MCV MCH MCHC RDW Std Deviation RDW Coeff of Con Plt Count MPV Immature Gran % (Auto) Neut % (Auto) Lymph % (Auto) [place] % (Auto) Eos % (Auto) Baso % (Auto) Immature Gran # (Auto) Neut # (Auto) Lymph # (Auto) [place] # (Auto) Eos # (Auto) Baso # (Auto) PT INR Sodium 141 Potassium 5.4 H D Chloride 111 H Carbon Dioxide 23 Anion Gap 8.0 BUN 28 H Creatinine 0.40 L Est Cr Clr Drug Dosing Not Reportable Est GFR ( Amer) 123.2 Est GFR (Non-Af Amer) 106.3 BUN/Creatinine Ratio 70.4 H Glucose 86 POC Glucose Estimat Average Glucose 111 Hemoglobin A1c 5.5 Lactate 2.5 H* Calcium 8.8 Magnesium Total Bilirubin 0.1 L AST 27 ALT 29 Alkaline Phosphatase 88 Ammonia Troponin I Total Protein 7.6 Albumin 3.3 L Globulin 4.3 H Albumin/Globulin Ratio 0.8 L Lipase TSH Specimen Hemolysis Urine Color Urine Appearance Urine pH Ur Specific [place] Urine Protein Urine Glucose (UA) Urine Ketones Urine Blood Urine Nitrite Urine Bilirubin Urine Urobilinogen Ur Leukocyte Esterase Phenobarbital Hepatitis C Ab Screen 09/27/19 09/27/19 09/27/19 16:31 16:45 16:45 WBC RBC Hgb Hct MCV MCH MCHC RDW Std Deviation RDW Coeff of Con Plt Count MPV Immature Gran % (Auto) Neut % (Auto) Lymph % (Auto) [place] % (Auto) Eos % (Auto) Baso % (Auto) Immature Gran # (Auto) Neut # (Auto) Lymph # (Auto) [place] # (Auto) Eos # (Auto) Baso # (Auto) PT INR Sodium 143 Potassium 6.2 H* Chloride 113 H Carbon Dioxide 22 Anion Gap 7.0 BUN 27 H Creatinine 0.35 L Est Cr Clr Drug Dosing Not Reportable Est GFR ( Amer) 128.7 Est GFR (Non-Af Amer) 111.0 BUN/Creatinine Ratio 76.6 H Glucose 82 POC Glucose 80 Estimat Average Glucose Hemoglobin A1c Lactate Calcium 8.0 L Magnesium Total Bilirubin AST ALT Alkaline Phosphatase Ammonia Troponin I Total Protein Albumin Globulin Albumin/Globulin Ratio Lipase TSH Specimen Hemolysis Urine Color Urine Appearance Urine pH Ur Specific [place] Urine Protein Urine Glucose (UA) Urine Ketones Urine Blood Urine Nitrite Urine Bilirubin Urine Urobilinogen Ur Leukocyte Esterase Phenobarbital Hepatitis C Ab Screen 09/27/19 09/27/19 09/27/19 17:55 19:27 19:27 WBC RBC Hgb Hct MCV MCH MCHC RDW Std Deviation RDW Coeff of Con Plt Count MPV Immature Gran % (Auto) Neut % (Auto) Lymph % (Auto) [place] % (Auto) Eos % (Auto) Baso % (Auto) Immature Gran # (Auto) Neut # (Auto) Lymph # (Auto) [place] # (Auto) Eos # (Auto) Baso # (Auto) PT INR Sodium Potassium 3.6 D Chloride Carbon Dioxide Anion Gap BUN Creatinine Est Cr Clr Drug Dosing Est GFR ( Amer) Est GFR (Non-Af Amer) BUN/Creatinine Ratio Glucose POC Glucose Estimat Average Glucose Hemoglobin A1c Lactate Cancelled 0.9 Calcium Magnesium Total Bilirubin AST ALT Alkaline Phosphatase Ammonia Troponin I Total Protein Albumin Globulin Albumin/Globulin Ratio Lipase TSH Specimen Hemolysis Urine Color Urine Appearance Urine pH Ur Specific [place] Urine Protein Urine Glucose (UA) Urine Ketones Urine Blood Urine Nitrite Urine Bilirubin Urine Urobilinogen Ur Leukocyte Esterase Phenobarbital Hepatitis C Ab Screen 09/27/19 09/28/19 09/28/19 20:28 06:21 06:21 WBC 7.83 RBC 3.72 L Hgb 12.3 Hct 37.2 MCV 100.0 MCH 33.1 MCHC 33.1 RDW Std Deviation 50.0 H RDW Coeff of Con 13.8 Plt Count 135 MPV 10.4 Immature Gran % (Auto) 0.3 Neut % (Auto) 72.4 Lymph % (Auto) 14.6 [place] % (Auto) 6.6 Eos % (Auto) 6.0 Baso % (Auto) 0.1 Immature Gran # (Auto) 0.02 Neut # (Auto) 5.67 Lymph # (Auto) 1.14 L [place] # (Auto) 0.52 Eos # (Auto) 0.47 Baso # (Auto) 0.01 PT INR Sodium 143 Potassium 3.2 L Chloride 112 H Carbon Dioxide 23 Anion Gap 8.0 BUN 16 Creatinine 0.29 L Est Cr Clr Drug Dosing 131.5 Est GFR ( Amer) 136.9 Est GFR (Non-Af Amer) 118.1 BUN/Creatinine Ratio 56.1 H Glucose 112 H POC Glucose 86 Estimat Average Glucose Hemoglobin A1c Lactate Calcium 8.5 Magnesium Total Bilirubin 0.3 AST 24 ALT 29 Alkaline Phosphatase 102 Ammonia Troponin I Total Protein 7.6 Albumin 3.3 L Globulin 4.3 H Albumin/Globulin Ratio 0.8 L Lipase TSH Specimen Hemolysis Urine Color Urine Appearance Urine pH Ur Specific [place] Urine Protein Urine Glucose (UA) Urine Ketones Urine Blood Urine Nitrite Urine Bilirubin Urine Urobilinogen Ur Leukocyte Esterase Phenobarbital Hepatitis C Ab Screen 09/28/19 09/28/19 09/28/19 06:21 06:21 06:21 WBC RBC Hgb Hct MCV MCH MCHC RDW Std Deviation RDW Coeff of Con Plt Count MPV Immature Gran % (Auto) Neut % (Auto) Lymph % (Auto) [place] % (Auto) Eos % (Auto) Baso % (Auto) Immature Gran # (Auto) Neut # (Auto) Lymph # (Auto) [place] # (Auto) Eos # (Auto) Baso # (Auto) PT INR Sodium Potassium Chloride Carbon Dioxide Anion Gap BUN Creatinine Est Cr Clr Drug Dosing Est GFR ( Amer) Est GFR (Non-Af Amer) BUN/Creatinine Ratio Glucose POC Glucose Estimat Average Glucose Hemoglobin A1c Lactate 0.7 Calcium Magnesium Total Bilirubin AST ALT Alkaline Phosphatase Ammonia Troponin I Total Protein Albumin Globulin Albumin/Globulin Ratio Lipase TSH Specimen Hemolysis Urine Color Urine Appearance Urine pH Ur Specific [place] Urine Protein Urine Glucose (UA) Urine Ketones Urine Blood Urine Nitrite Urine Bilirubin Urine Urobilinogen Ur Leukocyte Esterase Phenobarbital 56.1 H* Hepatitis C Ab Screen Neg 09/28/19 07:49 WBC RBC Hgb Hct MCV MCH MCHC RDW Std Deviation RDW Coeff of Con Plt Count MPV Immature Gran % (Auto) Neut % (Auto) Lymph % (Auto) [place] % (Auto) Eos % (Auto) Baso % (Auto) Immature Gran # (Auto) Neut # (Auto) Lymph # (Auto) [place] # (Auto) Eos # (Auto) Baso # (Auto) PT INR Sodium Potassium Chloride Carbon Dioxide Anion Gap BUN Creatinine Est Cr Clr Drug Dosing Est GFR ( Amer) Est GFR (Non-Af Amer) BUN/Creatinine Ratio Glucose POC Glucose 106 H Estimat Average Glucose Hemoglobin A1c Lactate Calcium Magnesium Total Bilirubin AST ALT Alkaline Phosphatase Ammonia Troponin I Total Protein Albumin Globulin Albumin/Globulin Ratio Lipase TSH Specimen Hemolysis Urine Color Urine Appearance Urine pH Ur Specific [place] Urine Protein Urine Glucose (UA) Urine Ketones Urine Blood Urine Nitrite Urine Bilirubin Urine Urobilinogen Ur Leukocyte Esterase Phenobarbital Hepatitis C Ab Screen (1) Altered mental status Altered mental status type: unspecified Qualified Code(s): R41.82 - Altered mental status, unspecified
[2019-09-28] MEDS: BACLOFEN 20 MG TAB PO SCH ×4 (11:20→20:16)
[2019-09-28] MEDS: diazePAM 5 MG TABLET PO SCH ×3 (11:20→20:16)
[2019-09-28] MEDS: INSULIN ASPART 100 UNITS/ML 3 ML PEN SC SCH ×3 (12:00→20:17)
[2019-09-28] MEDS: ENOXAPARIN INJ 40 MG/0.4 ML SYR SQ SCH (12:28)
--- NOTE | 2019-09-28 13:12 | Electrocardiogram Report ---
Test Reason : Blood Pressure : / mmHG Vent. Rate : 077 BPM Atrial Rate : 077 BPM P-R Int : 150 ms QRS Dur : 096 ms QT Int : 378 ms P-R-T Axes : 009 -16 -14 degrees QTc Int : 427 ms Normal sinus rhythm Minimal voltage criteria for LVH, may be normal variant Inferior infarct (cited on or before 18-SEP-2019) Cannot rule out Anterior infarct , age undetermined T wave abnormality, consider anterior ischemia Abnormal ECG When compared with ECG of 18-SEP-2019 03:10, No significant change was found Confirmed by Wojciech Renee ([id number]) on 09/28/2019 1:12:02 PM Referred By: REFERRED SELF Confirmed By:Wojciech Renee
--- NOTE | 2019-09-28 14:19 | Ultrasound Report ---
ULTRASOUND RIGHT UPPER EXTREMITY VENOUS CLINICAL HISTORY: Right arm swelling. COMPARISON STUDY: No prior. TECHNIQUE: Real-time, grayscale, and color Doppler sonography of the deep veins of the right upper ex tremity is performed. Compression and augmentation were utilized. FINDINGS: There is no sonographic evidence of deep venous thrombosis identified in the right upper ex tremity. The right internal jugular, axillary, and brachial veins are patent and normally compressibl e. Normal venous waveforms and augmentation are seen within the right subclavian vein. The cephalic a nd basilic veins are clear. The visualized radial and ulnar veins are patent. IMPRESSION: There is no sonographic evidence of deep venous thrombosis identified in the right upper extremity. ACT 112: Negative or not required by law. Electronically signed by: Abimael Jackson M.D. 09/28/2019 2:18 PM
--- NOTE | 2019-09-28 14:20 | Ultrasound Report ---
BILATERAL LOWER EXTREMITY VENOUS DOPPLER HISTORY: Lower extremity edema, r/o dvt COMPARISON STUDY: None. FINDINGS: There is normal compressibility, flow, and augmentation within the bilateral lower extremit y deep venous systems. IMPRESSION: No DVT within the right or left lower extremity. ACT 112: Negative or not required by law. Electronically signed by: Armin Marmolejo M.D. 09/28/2019 2:19 PM
--- NOTE | 2019-09-28 15:47 | Communication Note ---
Date of Service: September 28, 2019I have received a consultation from Dr. Sullivan regarding the 69-year-old woman resident of [facility] who has severe cerebral palsy, has minimal verbal communication, cannot operate a wheelchair using her neck into the past week to 10 days has had increasing lethargy possibly related to underlying urinary tract infection and has been treated for same. Is also felt to be dehydrated. She was brought to the hospital evaluated and admitted after CT scan showed only evidence for a mild degree of leukoencephalopathy her basic laboratory studies were largely unremarkable perhaps with a slight degree of elevation of her creatinine, her urine analysis was normal, cultures pending but her phenobarbital level was elevated at 62 and on repeat it still elevated at 56 Reviewing her chart it is not clear that she is ever had an outpatient barbiturate level done despite having been on phenobarbital at 60 mg tablets 2 at bedtime for quite a number of years but review of records here indicates that prior levels in 2016 and were 9 and 35 respectively Looking through her chart I do not see that her dose has never been increased knowingly and appears that she at [facility] was getting the appropriate dosage Is not clear why her levels have suddenly increased other than perhaps an interaction with 1 of the multiple antibiotics that she has received At this point I do not think neurology needs to come into the hospital and see her particular during the restrictions of unnecessary visits during the COVID-19 epidemic. I do not think she needs an EEG is nothing about this or suggestion that a seizure so I am going to cancel that request I will check to make sure that thyroid function test was performed as hypo- metabolism could theoretically increase the barbiturate level I think her lethargy is very well explained on the basis of this toxic level barbiturate as we do not have clear proof of any other cause at this time My suggestion would be to hold phenobarbital, continue to obtain daily barbiturate levels and once a week therapeutic range then cut her dose to 60 mg daily at bedtime and after several days of this repeat a level So this could be done on an outpatient basis I will leave the decision about discharge up to the attending hospitalist Obviously there will be no charge for this consult but I will check her chart on a daily basis Mal Beyer MD
[2019-09-28] MEDS: METOPROLOL SUCC 50MG EXT REL TAB PO SCH (20:16)
[2019-09-29] MEDS: AZTREONAM 1,000 MG in DEXTROSE 5% 100 ML IV SCH ×2 (01:30→13:31)
[2019-09-29 06:31] LABS: Basophils # (auto) 0.01 K/uL (0-0.2); Basophils % (auto) 0.2 %; Eosinophils # (auto) 0.36 K/uL (0-0.5); Eosinophils % (auto) 6.6 %; Hematocrit (blood only) 34.2 % (37-47); Hemoglobin 11.3 g/dL (12.0-16.0); Immature Granulocytes # (auto) 0.02 K/uL (0.00-0.02); Immature Granulocytes % (auto) 0.4 %; Lymphocytes # (auto) 1.29 K/uL (1.2-3.4); Lymphocytes % (auto) 23.7 %; Mean Corpuscular Hemoglobin 32.6 pg (25-34); Mean Corpuscular Volume 98.6 fL (80-100); Mean Platelet Volume 10.5 fL (7.4-10.4); Monocytes # (auto) 0.44 K/uL (0.11-0.59); Monocytes % (auto) 8.1 %; Neutrophils # (auto) 3.33 K/uL (1.4-6.5); Platelet Count 188 K/uL (130-400); RDW Coefficient of Variation 13.6 % (11.5-14.5); RDW Standard Deviation 48.6 fL (36.4-46.3); Red Blood Count 3.47 M/uL (4.2-5.4); White Blood Count 5.45 K/uL (4.8-10.8)
[2019-09-29 07:19] LABS: Albumin Globulin Ratio 0.7 (0.9-2); Albumin Level 2.9 gm/dl (3.4-5.0); BUN Creatinine Ratio 19.6 (10-20); Bilirubin,Total 0.3 mg/dl (0.2-1); Calcium 8.3 mg/dl (8.5-10.1); Creatinine Clr Calc Pharmacy 119.2 ml/min; Est GFR (African American) 132.6; Est GFR (Non-African American) 114.4; Globulin 4.1 gm/dl (2.5-4.0); Potassium 3.5 mmol/L (3.5-5.1)
[2019-09-29] MEDS ORDERED: ARTIFICIAL TEARS OP PRN (08:02)
[2019-09-29] MEDS: diazePAM 5 MG TABLET PO SCH ×3 (08:07→20:17)
[2019-09-29] MEDS: BACLOFEN 20 MG TAB PO SCH ×4 (08:07→20:17)
[2019-09-29] MEDS: FLUTICASONE PROPIONATE NA SPR 16 GM BTL SCH (08:08)
[2019-09-29] MEDS: ENOXAPARIN INJ 40 MG/0.4 ML SYR SQ SCH (08:08)
[2019-09-29] MEDS: INSULIN ASPART 100 UNITS/ML 3 ML PEN SC SCH ×4 (08:14→21:28)
--- NOTE | 2019-09-29 11:51 | Communication Note ---
Date of Service: September 15The barbiturate level today is 45 which is slightly high and I suspect a repeat level tomorrow will be in the upper therapeutic range. If so then resuming the phenobarbital 60 mg at bedtime would seem reasonable which is about 50% of the dose she theoretically was taking before admission and had been taking for years. Prior barbiturate levels were in the mid range and I am not sure what caused this sudden rise other than perhaps some competition for metabolism by antibiotics or potentially a hypometabolic state such as hypothyroidism. In that regard the TSH level remains out perhaps due to laboratory delays but hopefully not due to failure of the order to be received. If the patient is doing reasonably well she probably could be discharged and needs adjustments of dosage of phenobarbital made on an outpatient basis. I would recommend 1 more day however of observation to be sure the level does get into the sub toxic range before restarting it I will check back on the chart tomorrow Mal Beyer MD
[2019-09-29] MEDS: ACETAMINOPHEN 325 MG TAB PO PRN ×2 (13:34→20:17)
--- NOTE | 2019-09-29 15:38 | Hospitalist Progress Note ---
Date of Service September 29, 2019 Assessment & Plan (1) Altered mental status: 69 year old female with history of spastic quadriplegic cerebral palsy, hypertension, diabetes, dyslipidemia, GERD, anxiety Presenting with altered mental status/lethargy. Altered mental status, possible encephalopathy secondary to: A. Phenobarbital toxicity -- holding phenobarbital at this time --Level on admission 61.2--> 56--> now 45 TSH normal --Hold phenobarbital, resume with reduced dose of Phenobarbital 60mg daily (from 120mg daily) once Phenobarbital level in < 40 then check level again after a few days --Neurology consulted, recommends above B.Possible Partially treated UTI --Treated recently with Bactrim and Cipro --UA: Negative --Urine culture pending Blood cultures pending --On empiric aztreonam day #3 ff up cultures D. Dehydration --Poor oral intake while at shelter oral intake still poor --Continue gentle IV fluids--> possible DC tomorrow Hypokalemia --From poor oral intake --Replaced with IV potassium, K added to D NSS monitor Right upper extremity edema and bilateral lower extremity edema -- ultrasound to rule out DVT: Negative monitor while on IV fluids History of spastic quadriplegic cerebral palsy --continue baclofen, diazepam Diabetes --Hold metformin Insulin sliding scale ordered Hypertension --continue Losartan GERD --Continue usual famotidine DVT prophylaxis --Lovenox subcutaneous daily CODE STATUS --DNR Disposition --Anticipate return to [facility] when medically stable discussed with sister Caitie over the phone yesterday in detail all questions answered she is understanding, agreeable, comfortable with the plan of care Admission and Anticipated Discharge Date Admission Date: September 27, 2019 Subjective ff up for toxic encephalopathy seen resting in bed, more awake, alert nonverbal at baseline, but nods head/shakes when asked question denies pain, shortness of breath trying to have small biter for breakfast no other issues per facility environmental technician of Systems Review of Systems: All systems reviewed & are unremarkable except as noted in HPI & below Physical Exam Physical Exam: General- alert, more awake, not in distress, breathing with no effort or accessory muscle use Eyes- anicteric Neck- no JVD Lungs- clear breath sounds bilaterally, no crackles/wheezing Heart- normal rate, regular rhythm; no murmurs Abdomen- normal bowel sounds, nondistended, soft, nontender Extremities-mild edema on U and L extremities, non tender/no erythema/warmth Neuro- alert, nods/shakes head, (+) spastic quadriplegia Skin- warm & dry Results & Data Results & Data ([facility]) Vital Signs (Past 12 Hours) Vital Signs Temp Pulse Pulse Resp BP Pulse Ox 09/29/19 15:07 97 H 09/29/19 11:57 37.4 C 99 H 20 146/78 H 95 09/29/19 06:49 37.9 C H 98 H 22 151/73 H 93 Laboratory Results Laboratory Results - last 24 hr 09/28/19 09/28/19 09/28/19 06:21 16:39 20:08 WBC RBC Hgb Hct MCV MCH MCHC RDW Std Deviation RDW Coeff of Con Plt Count MPV Immature Gran % (Auto) Neut % (Auto) Lymph % (Auto) Noble % (Auto) Eos % (Auto) Baso % (Auto) Immature Gran # (Auto) Neut # (Auto) Lymph # (Auto) Noble # (Auto) Eos # (Auto) Baso # (Auto) Sodium Potassium Chloride Carbon Dioxide Anion Gap BUN Creatinine Est Cr Clr Drug Dosing Est GFR ( Amer) Est GFR (Non-Af Amer) BUN/Creatinine Ratio Glucose POC Glucose 139 H 111 H Calcium Total Bilirubin AST ALT Alkaline Phosphatase Total Protein Albumin Globulin Albumin/Globulin Ratio TSH 3.920 Phenobarbital 09/29/19 09/29/19 09/29/19 06:00 06:00 06:00 WBC 5.45 RBC 3.47 L Hgb 11.3 L Hct 34.2 L MCV 98.6 MCH 32.6 MCHC 33.0 RDW Std Deviation 48.6 H RDW Coeff of Con 13.6 Plt Count 188 MPV 10.5 H Immature Gran % (Auto) 0.4 Neut % (Auto) 61.0 Lymph % (Auto) 23.7 Noble % (Auto) 8.1 Eos % (Auto) 6.6 Baso % (Auto) 0.2 Immature Gran # (Auto) 0.02 Neut # (Auto) 3.33 Lymph # (Auto) 1.29 Noble # (Auto) 0.44 Eos # (Auto) 0.36 Baso # (Auto) 0.01 Sodium 140 Potassium 3.5 Chloride 112 H Carbon Dioxide 24 Anion Gap 4.0 BUN 6 L D Creatinine 0.32 L Est Cr Clr Drug Dosing 119.2 Est GFR ( Amer) 132.6 Est GFR (Non-Af Amer) 114.4 BUN/Creatinine Ratio 19.6 Glucose 111 H POC Glucose Calcium 8.3 L Total Bilirubin 0.3 AST 19 ALT 24 Alkaline Phosphatase 91 Total Protein 7.0 Albumin 2.9 L Globulin 4.1 H Albumin/Globulin Ratio 0.7 L TSH Phenobarbital 45.5 H* 09/29/19 09/29/19 07:32 11:31 WBC RBC Hgb Hct MCV MCH MCHC RDW Std Deviation RDW Coeff of Con Plt Count MPV Immature Gran % (Auto) Neut % (Auto) Lymph % (Auto) Noble % (Auto) Eos % (Auto) Baso % (Auto) Immature Gran # (Auto) Neut # (Auto) Lymph # (Auto) Noble # (Auto) Eos # (Auto) Baso # (Auto) Sodium Potassium Chloride Carbon Dioxide Anion Gap BUN Creatinine Est Cr Clr Drug Dosing Est GFR ( Amer) Est GFR (Non-Af Amer) BUN/Creatinine Ratio Glucose POC Glucose 106 H 118 H Calcium Total Bilirubin AST ALT Alkaline Phosphatase Total Protein Albumin Globulin Albumin/Globulin Ratio TSH Phenobarbital (1) Altered mental status Altered mental status type: unspecified Qualified Code(s): R41.82 - Altered mental status, unspecified
[2019-09-29] MEDS ORDERED: LOSARTAN POTASSIUM 50 MG TAB PO SCH (16:00)
[2019-09-29] MEDS: D5NSS + 20MEQ KCL 20 MEQ/1,000 ML BAG IV SCH (17:06)
[2019-09-29] MEDS: DOCUSATE SODIUM 100 MG CAP PO SCH (17:07)
[2019-09-29] MEDS: METOPROLOL SUCC 50MG EXT REL TAB PO SCH (20:17)
[2019-09-30] MEDS: AZTREONAM 1,000 MG in DEXTROSE 5% 100 ML IV SCH (01:13)
[2019-09-30] MEDS: BACLOFEN 20 MG TAB PO SCH ×4 (08:20→20:37)
[2019-09-30] MEDS: SODIUM CHLORIDE 0.65% NA SOLN 45 ML (OCEAN) SCH (08:21)
[2019-09-30] MEDS: ENOXAPARIN INJ 40 MG/0.4 ML SYR SQ SCH (08:21)
[2019-09-30] MEDS: DOCUSATE SODIUM 100 MG CAP PO SCH (08:21)
[2019-09-30] MEDS: FAMOTIDINE 40 MG TABLET PO SCH (08:21)
[2019-09-30] MEDS: FLUTICASONE PROPIONATE NA SPR 16 GM BTL SCH (08:24)
[2019-09-30] MEDS: INSULIN ASPART 100 UNITS/ML 3 ML PEN SC SCH ×4 (08:24→20:47)
[2019-09-30] MEDS: diazePAM 5 MG TABLET PO SCH ×3 (08:28→20:34)
[2019-09-30] MEDS: D5NSS + 20MEQ KCL 20 MEQ/1,000 ML BAG IV SCH (12:04)
--- NOTE | 2019-09-30 13:28 | Hospitalist Progress Note ---
Date of Service September 30, 2019 Assessment & Plan (1) Altered mental status: 69 year old female with history of spastic quadriplegic cerebral palsy, hypertension, diabetes, dyslipidemia, GERD, anxiety Presenting with altered mental status/lethargy. Altered mental status, possible encephalopathy secondary to: A. Phenobarbital toxicity -- --level improved 61.2--> 56--> _> 38 --phenobarbital, resumed with reduced dose of 60mg daily (from 120mg daily) 0 repeat level in few days --Neurology consulted, recommends above no evidence of UTI IV Abx D/stef Dehydration --Poor oral intake while at nursing home --given gentle IV fluids- high risk for recurrent dehydration will D/c diuretics /ARB for HTN change to norvasc Hypokalemia replaced Right upper extremity edema and bilateral lower extremity edema -- ultrasound shows no DVT: History of spastic quadriplegic cerebral palsy --continue baclofen, diazepam Diabetes --Hold metformin Insulin sliding scale ordered Hypertension -d/c losartan ( to prevent future dehydration ) started on Norvasc GERD --Continue usual famotidine DVT prophylaxis --Lovenox subcutaneous daily CODE STATUS --DNR Disposition --Anticipate return to [facility] tomorrow afternoon Admission and Anticipated Discharge Date Admission Date: September 27, 2019 Subjective non verbal no sign of distress noted stable vitals Review of Systems Review of Systems: Unobtainable due to cognitive status Physical Exam Constitutional: + ill appearing and + physical limitations (cerebral pasly , paraplegia , non verbal ) Eyes: + anicteric sclerae Respiratory: normal respiratory effort and + cough; no respiratory distress and does not use accessory muscles Auscultation: no wheezes Cardiovascular: Rate/Rhythm: regular rate and regular rhythm Gastrointestinal (Abdomen): Percussion/Palpation: abdomen soft; abdomen nontender Musculoskeletal: contracted extremities /paraplegia with cerebral palsy Neurologic: paraplegic , cerebral palsy Results & Data Results & Data ([facility]) Vital Signs (Past 12 Hours) Vital Signs Temp Pulse Pulse Resp BP Pulse Ox 09/30/19 11:06 36.6 C 89 16 141/81 H 95 09/30/19 07:16 94 H 09/30/19 07:11 37 C 87 16 168/90 H 97 09/30/19 02:52 37.2 C 80 20 148/77 H 93 (1) Altered mental status Altered mental status type: unspecified Qualified Code(s): R41.82 - Altered mental status, unspecified
[2019-09-30] MEDS ORDERED: LOPERAMIDE HCL 2 MG CAP PO PRN (14:30)
[2019-09-30] MEDS: METOPROLOL SUCC 50MG EXT REL TAB PO SCH (20:34)
[2019-09-30] MEDS ORDERED: ATORVASTATIN 20 MG TAB PO SCH (21:00)
[2019-09-30] MEDS ORDERED: AMLODIPINE BESYLATE 5 MG TAB PO SCH (21:00)
[2019-09-30] MEDS ORDERED: PHENobarbitaL 15 MG TAB PO SCH (21:00)
--- NOTE | 2019-10-01 06:40 | Communication Note ---
Date of Service: October 01, 2019I reviewed the chart and progress notes and laboratory studies and agree with the plans initiated yesterday to reinstitute phenobarbital at 60 mg/day continue other medications and treatment as per the internal medicine hospitalist service and recheck of barbiturate level in 2 days which I suspect should continue to fall slightly but remained in the therapeutic range From neurologic point of view I think the patient can be discharged back to her long term with plans to repeat phenobarbital levels weekly on the current dosage. The metabolism of phenobarbital slow and at this point doing daily levels and on outpatient basis doing any more than weekly levels make little sense Her TSH did come back normal so hypothyroidism is not likely the cause of this change in her barbiturate level which really was not being monitored very frequently anyway and it is conceivable that her low albumin and other metabolic issues related to poor nutrition may have permitted it to rise At this point neurology will sign off the case but will be available for consultation and chart review remotely Mal Beyer MD
[2019-10-01 06:47] LABS: Creatinine Clr Calc Pharmacy 141.3 ml/min; Est GFR (African American) 140.2; Est GFR (Non-African American) 120.9
[2019-10-01] MEDS: DOCUSATE SODIUM 100 MG CAP PO SCH (08:17)
[2019-10-01] MEDS: SODIUM CHLORIDE 0.65% NA SOLN 45 ML (OCEAN) SCH (08:18)
[2019-10-01] MEDS: BACLOFEN 20 MG TAB PO SCH ×2 (08:18→13:19)
[2019-10-01] MEDS: FAMOTIDINE 40 MG TABLET PO SCH (08:18)
[2019-10-01] MEDS: ENOXAPARIN INJ 40 MG/0.4 ML SYR SQ SCH (08:19)
[2019-10-01] MEDS: FLUTICASONE PROPIONATE NA SPR 16 GM BTL SCH (08:19)
[2019-10-01] MEDS: INSULIN ASPART 100 UNITS/ML 3 ML PEN SC SCH ×2 (08:21→12:23)
[2019-10-01] MEDS: diazePAM 5 MG TABLET PO SCH ×2 (08:33→14:03)
[2019-10-01] MEDS: ACETAMINOPHEN 325 MG TAB PO PRN (08:33)
[2019-10-01] MEDS ORDERED: CALCIUM 600MG + VIT D 400 IU TAB PO SCH (09:00)
[2019-10-01] MEDS ORDERED: CEROVITE ADV FORMULA TAB PO SCH (09:00)
[2019-10-01] MEDS ORDERED: CHOLECALCIFEROL 1,000 UNITS 25 MCG TAB PO SCH (09:00)
[2019-10-01] MEDS ORDERED: LORATADINE 10 MG TAB PO SCH (09:00)
--- NOTE | 2019-10-01 13:07 | Hospitalist Progress Note ---
Date of Service October 01, 2019 Assessment & Plan (1) Altered mental status: 69 year old female with history of spastic quadriplegic cerebral palsy, hypertension, diabetes, dyslipidemia, GERD, anxiety Presenting with altered mental status/lethargy. Altered mental status, possible encephalopathy secondary to: A. Phenobarbital toxicity -- --level improved 61.2--> 56--> _> 38 -> 36 --phenobarbital, resumed with reduced dose of 60mg daily (from 120mg daily) repeat level in a week --Neurology consulted, recommends above no evidence of UTI IV Abx D/stef Dehydration --Poor oral intake while at care home --given gentle IV fluids- high risk for recurrent dehydration D/c diuretics [facility] Hypokalemia replaced Right upper extremity edema and bilateral lower extremity edema -- ultrasound shows no DVT: History of spastic quadriplegic cerebral palsy --continue baclofen, diazepam Diabetes --Hold metformin Insulin sliding scale ordered Hypertension -d/c losartan ( to prevent future dehydration ) started on [facility] GERD --Continue usual famotidine DVT prophylaxis --Lovenox subcutaneous daily CODE STATUS --DNR Disposition -- return to [facility] today Admission and Anticipated Discharge Date Admission Date: September 27, 2019 Subjective more alert today non verbal no sign of distress stable vitals discharged to care home today Physical Exam Constitutional: + ill appearing and + physical limitations (cerebral pasly , paraplegia , non verbal ) Eyes: + anicteric sclerae Respiratory: normal respiratory effort and + cough; no respiratory distress and does not use accessory muscles Auscultation: no wheezes Cardiovascular: Rate/Rhythm: regular rate and regular rhythm Gastrointestinal (Abdomen): Percussion/Palpation: abdomen soft; abdomen nontender Results & Data Results & Data ([facility]) Vital Signs (Past 12 Hours) Vital Signs Temp Pulse Resp BP Pulse Ox 10/01/19 12:31 36.5 C 99 H 20 141/82 H 94 10/01/19 11:27 36.5 C 99 H 20 141/82 H 94 10/01/19 07:08 36.9 C 91 H 16 127/76 95 (1) Altered mental status Altered mental status type: unspecified Qualified Code(s): R41.82 - Altered mental status, unspecified
--- NOTE | 2019-10-01 14:53 | Discharge Summary ---
Date of Service October 01, 2019 Principal Diagnosis ALTERED MENTAL STATUS /DEHYDRATION /PHENOBARBITAL TOXICITY Discharge Exam Constitutional + ill appearing and + physical limitations (cerebral pasly , paraplegia , non verbal ) Eyes + anicteric sclerae Respiratory normal respiratory effort and + cough; no respiratory distress and does not use accessory muscles Auscultation: no wheezes Cardiovascular Rate/Rhythm: regular rate and regular rhythm Gastrointestinal (Abdomen) Percussion/Palpation: abdomen soft; abdomen nontender Discharge Data Allergies Allergy/AdvReac Type Severity Reaction Status Date / Time ampicillin Allergy Unknown rash Verified 09/27/19 14:01 carbidopa Allergy Unknown . Verified 09/27/19 11:14 levodopa Allergy Unknown . Verified 09/27/19 11:14 Penicillins Allergy Unknown rash Verified 09/27/19 14:01 Sinemet Allergy Unknown . Verified 05/06/13 12:46 Consultations 09/27/19 13:03 ED Decision to Admit Stat 09/28/19 08:00 Consult Neurology Routine Ordered Studies 09/27/19 10:24 CT abd pelvis wo con Stat CT chest wo con Stat CT head/brain wo con Stat 09/28/19 13:30 US venous doppler UE RT Stat 09/28/19 14:00 US venous doppler LE BI Stat Hospital Course (1) Altered mental status: 69 year old female with history of spastic quadriplegic cerebral palsy, hypertension, diabetes, dyslipidemia, GERD, anxiety Presenting with altered mental status/lethargy. Altered mental status, possible encephalopathy secondary to: A. Phenobarbital toxicity -- --level improved 61.2--> 56--> _> 38 -> 36 --phenobarbital, resumed with reduced dose of 60mg daily (from 120mg daily) repeat level in a week --Neurology consulted, recommends above no evidence of UTI IV Abx D/stef Dehydration --Poor oral intake while at [facility] --given gentle IV fluids- high risk for recurrent dehydration D/c diuretics /ARB for HTN change to norvasc BP been stable Hypokalemia replaced Right upper extremity edema and bilateral lower extremity edema -- ultrasound shows no DVT: History of spastic quadriplegic cerebral palsy --continue baclofen, diazepam Diabetes --Hold metformin Insulin sliding scale ordered Hypertension -d/c losartan ( to prevent future dehydration ) started on Norvasc GERD --Continue usual famotidine DVT prophylaxis --Lovenox subcutaneous daily CODE STATUS --DNR Disposition -- return to [email or web address] today Total Time Total Time Spent Total Time Spent (In Minutes): 30 mins Total Time Includes: Discharge Planning and Medication Reconciliation Discharge Plan Discharge Items Patient Disposition: Home - Home Health Services Reason For Visit: ALTERED MENTAL STATUS, BASELINE NONVERBAL, ELEVATE Discharge Diagnosis: ALTERED MENTAL STATUS /DEHYDRATION /PHENOBARBITAL TOXICITY Activity: Resume your previous activity Non-emergency contact: Primary Care Provider Call non-emergency contact if: you have any medication questions Follow-up/Referrals: Mal Pemberton MD [Primary Care Provider] - 10/05/19 11:00 am Diet: Regular Diet Texture: Pureed (blended smooth) Liquid Consistency: White thick Ambulatory Orders: Phenobarbital (Routine) Timeframe: 1 Week Location: Determined by Patient Ordered By: Yovana Pedraza Attending Provider Instructions: HOSPITAL FOLLOW UP WITH FAMILY PHYSICIAN IN 1 WEEK MEDICATION CHANGES : PHENOBARBITAL DOSE REDUCED TO 60 MG DAILY REPEAT PHENOBARBITAL LEVEL IN 1 WEEK PHENOBARBITAL LEVEL TODAY 36.9 THEN CONTINUE TO HAVE WEEKLY LEVEL CHECK FOR THE NEXT 4 WEEKS /AFTERWARDS EVERY 3 MONTHS LEVEL CHECK ( CAN BE DONE EARLIER WITH ANY MENTAL STATUS CHANGES ) GOAL PHENOBARBITAL LEVEL 15-40 BLOOD PRESSURE MEDICATION CHANGE : LOSARTAN DISCONTINUED NEW BLOOD PRESSURE MEDICATION : NORVASC 5 MG DAILY Pending Studies at Discharge: Yes Studies:: PHENOBARBITAL LEVEL IN 1 WEEK Stand-Alone Forms: My [employer], Smoking Cessation Medications and DC Order Prescriptions: New amlodipine [Norvasc] 5 mg Tablet 5 mg PO HS Qty: 30 RF: 3 Continued Cerovite Senior Tablet 1 tab PO DAILY RF: 0 famotidine 20 mg Tablet 40 mg PO DAILY RF: 0 sodium chloride [Saline Nasal Mist] 0.65 % Aerosol,Centuria 2 spray INTRANASAL DAILY RF: 0 docusate sodium [Stool Softener] 100 mg Capsule 200 mg PO DAILY RF: 0 estradiol [Estrace] 0.01 % (0.1 mg/gram) Cream 2 g VAGINAL 2XWK RF: 0 olopatadine 0.2 % Drops 1 drp OPHTHALMIC (EYE) DAILY RF: 0 fluconazole 100 mg Tablet 100 mg PO DAILY RF: 0 metformin 500 mg tablet 500 mg PO DAILY RF: 0 atorvastatin 20 mg Tablet 20 mg PO PM RF: 0 metoprolol succinate 50 mg Tablet Extended Release 24 Hr 50 mg PO QPM RF: 0 loperamide 2 mg Tablet 2 mg PO DIRECTED RF: 0 baclofen 20 mg Tablet 20 mg PO QID RF: 0 meloxicam 7.5 mg Tablet 7.5 mg PO DAILY RF: 0 carbamide peroxide [Debrox] 6.5 % Drops 5 drp OTIC (EAR) WK RF: 0 polyethylene glycol 3350 [Miralax] 17 gram/dose Powder 17 g PO DAILY PRN (Reason: Constipation) RF: 0 fluticasone propionate 50 mcg/actuation spray,suspension 2 spray intranasal DAILY RF: 0 loratadine 10 mg Tablet 10 mg PO DAILY RF: 0 diazepam 5 mg Tablet 5 mg PO TID RF: 0 cholecalciferol (vitamin D3) [Vitamin D3] 1,000 unit Tablet 1,000 unit PO DAILY RF: 0 calcium carbonate-vit D3-min [Calcium 600 + Minerals] 600 mg calcium- 400 unit Tablet 1 tab PO DAILY RF: 0 Artificial Tears([id number]) 0.1-0.3 % Drops 1 - 2 drp ophthalmic (eye) DIRECTED RF: 0 Changed phenobarbital 60 mg Tablet 60 mg PO DAILY Qty: 30 RF: 3 Discontinued losartan 50 mg Tablet 50 mg PO QPM RF: 0 Discharge Orders: Discharge Order (Routine); Ordered 10/01/19 Ordered By: Yovana Landaverde Admission Data Admit Date/Time: 09/27/19 14:02 Attending Provider: Yovana Landaverde Admit Provider: Jimy Sullivan Primary Care Provider: Mal Pemberton Other Providers: Jimy Sullivan ; Mal Beyer Other Interventions: Discharge Summary Assessment (RN) Last Done: 10/01/19 12:31 DC Date/Time DO NOT enter until pt leaves facility: 10/01/19 13:50
== END 2019-10-01 13:50 | disposition home or self-care (01) | DRG 91 ==
LOC: ED 10:11 → SUATTDRO 14:02 → 2N 14:02

== ENCOUNTER 2022-05-25 15:15 | Inpatient (IN) ==
[2022-05-25] MEDS ORDERED: SODIUM CHLORIDE 0.9% 1000ML 500 ML IV ONE (18:49)
--- NOTE | 2022-05-25 20:06 | Emergency Department Note ---
Impression & Plan Abdominal pain, Stercoral colitis, Colon distention ED Provider Note INFORMANT: Caregiver ED PROVIDER(S): Mal Castro MD CHIEF COMPLAINT: Abdominal pain PLAN: Disposition: Admitted Condition: Good Outpatient prescription management: none Referral: None MEDICAL DECISION MAKING: Patient presented because of abdominal pain and was distended. She had blood work obtained which did not reveal any gross abnormalities. No leukocytosis. The patient underwent CT imaging and there was concern about functional obstruction with stercoral colitis. She had significant distention of the sigmoid. There was no significant cecal distention however. The case was discussed with Dr. Kenzie Finney of GI. He recommended disimpaction and enema x1 here in the ER. He felt that she may need additional enema and then tomorrow morning should be started on a oral bowel cleansing. I did perform a disimpaction. There was no significant stool to 5 cm. Moderate amount of gas was expelled. Patient did have some liquidy stool with for soapsuds enema. Consultation was made with Dr. Emmanuel Rutherford of the [facility] service. Patient was evaluated in the ER for further management. Triage Nursing notes reviewed and agree them. Vital Signs: reviewed and remarkable for tachycardia Differential diagnosis: Appendicitis, infections, diverticulitis, UTI, obstruction, mesenteric ischemia, aortic pathology, inflammatory bowel disease, renal colic, PUD, pancreatitis, biliary pathology, hernia, volvulus, constipation, as well as other pathologies. Diagnostics interpreted by me: ECG: none Cardiac Monitoring: Cardiac monitoring ordered by me: The patient was placed on continuous cardiac monitoring and observed. It revealed a normal sinus rhythm at 114 beats per minute without ectopy or evidence of dysrhythmia. Imaging studies: CT scan as noted below HPI: The patient is a 71 year old female from [place] [facility] who presents to the Emergency Room with complaints of abdominal pain. This started today and the caregiver noted that a home health nurse came to check on the sacral wound. She noted that her abdomen was distended and the patient was very uncomfortable with palpation. She would yell out to light touch. She did have a normal bowel movement yesterday and today per the caregiver.. The patient also notes the following associated symptoms, none. 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 She denies any headache, fever, vomiting, diarrhea, bloody stool, chest pain, breathing difficulties. History is limited secondary to the patient's intellectual disability. ROS: See above HPI for pertinent positives & negatives. Limited secondary to intellectual disability. PAST MEDICAL HISTORY:See Below , UTI PAST SURGICAL HISTORY:See Below, FAMILY HISTORY:See Below SOCIAL HISTORY:See Below, disabled HOME MEDICATIONS:See Below ALLERGIES:See Below VITALS:See Below PHYSICAL EXAMINATION: GENERAL: Awake, alert, uncomfortable-appearing, in no distress HENT: Normocephalic, atraumatic. Oropharynx unremarkable. EYES: Normal conjunctiva. Sclera non-icteric. NECK: Inspection normal. Non-tender. Supple. No nuchal rigidity. FROM. No masses. RESPIRATORY: Clear to auscultation. No wheezes. No rales. Normal respiratory effort. CARDIAC: Normal rate. Normal rhythm. No murmurs. No rubs. Extremities warm and well perfused. Pulses equal. No JVD. GI: Soft, moderately-distended. Diffusely tender to palpation. No rebound or guarding. No masses. RECTAL: Deferred. MUSCULOSKELETAL: Atraumatic. Chest examination reveals no tenderness. There is no CVA tenderness to palpation. No joint edema. Generalized muscular wasting in the lower extremities.Calves are equal size bilaterally and non-tender. No edema. No discoloration. NEURO: Normal sensorium per the caregiver. No sensory or motor deficits noted. SKIN: No rash or jaundice noted. Mal Castro MD Past Med/Surg History Medical History (Updated 05/26/22 @ 04:16 by Emmanuel Rutherford MD) Cerebral palsy Diabetes Hyperlipidemia Hypertension Quadriplegic cerebral palsy Seizure Family History Other Diabetes Hypertension Social History Smoking Status: Never smoker Second Hand Exposure: No; Do You Dip or Chew Tobacco: No; Tobacco Cessation Education Requested by Patient: No Hx Alcohol Use: No Hx Substance Use: No Preferred Language: Uzbek Communication Ability: Impaired Nursing Faculty Required: No Beliefs That Will Affect Care: None marital status: Single Current Living Situation: Personal Care Facility Current Living Situation Comment: [facility] current occupational status: disabled Other Information That Helps Us Care for You: No Feels Safe at Home: Yes Safety Concerns: Feels Safe At This Time Diet Comment: high protein diet as well to foster wound healing during the past year weight has: remained stable Assistive Devices: Glasses and Wheelchair Allergies Allergies Allergy/AdvReac Type Severity Reaction Status Date / Time ampicillin Allergy Unknown rash Verified 05/25/22 22:17 carbidopa Allergy Unknown Unknown Verified 05/25/22 22:17 levodopa Allergy Unknown Unknown Verified 05/25/22 22:17 Penicillins Allergy Unknown rash Verified 05/25/22 22:17 Home Meds Home Medications Medication Instructions Recorded Confirmed atorvastatin 20 mg tablet 20 mg PO PM 09/05/18 05/25/22 baclofen 20 mg tablet 20 mg PO QID 09/05/18 05/25/22 calcium carb-vit D3-minerals 600 1 tab PO DAILY 09/05/18 05/25/22 mg calcium-400 unit tablet (Calcium 600 + Minerals) carbamide peroxide 6.5 % ear drops 5 drp otic (ear) WK 09/05/18 05/25/22 (Debrox) cholecalciferol (vitamin D3) 25 1,000 unit PO QAM 09/05/18 05/25/22 mcg (1,000 unit) tablet (Vitamin D3) diazepam 5 mg tablet 5 mg PO TID 09/05/18 05/25/22 fluticasone propionate 50 1 spray intranasal QAM 09/05/18 05/25/22 mcg/actuation nasal spray,suspension loratadine 10 mg tablet 10 mg PO QAM 09/05/18 05/25/22 meloxicam 7.5 mg tablet 7.5 mg PO QAM 09/05/18 05/25/22 metformin 500 mg tablet 500 mg PO QAM 09/05/18 05/25/22 polyethylene glycol 3350 17 17 g PO Q OTHER DAY 09/05/18 05/25/22 gram/dose oral powder (Miralax) docusate sodium 100 mg capsule 200 mg PO QAM 09/18/19 05/25/22 (Stool Softener) gymuwvdxuntp-cmlzrwey-dleofs 1 tab PO DAILY 09/18/19 05/25/22 tablet (Cerovite Senior) olopatadine 0.2 % eye drops 1 drp ophthalmic (eye) QAM 09/18/19 05/25/22 sodium chloride 0.65 % nasal spray 2 spray intranasal QAM 09/18/19 05/25/22 aerosol (Saline Nasal Mist) omeprazole 20 mg capsule,delayed 20 mg PO QAM 01/12/20 05/25/22 release acetaminophen 500 mg tablet 1,000 mg PO Q6H PRN Pain 03/27/21 05/25/22 (Tylenol Extra Strength) lisinopril 10 mg tablet 10 mg PO QPM 03/27/21 05/25/22 loperamide 2 mg tablet 2 mg PO QID PRN Diarrhea 03/27/21 05/25/22 carboxymethylcellulose sodium 0.5 1 drp OPB QPM 11/21/21 05/25/22 % eye drops (Refresh Tears) cyclosporine 0.05 % eye drops in a 1 drp ophthalmic (eye) Q12 11/21/21 05/25/22 dropperette (Restasis) acetaminophen 500 mg tablet 1,000 mg PO Q6H PRN Pain 05/25/22 05/25/22 (Tylenol Extra Strength) nitrofurantoin macrocrystal 50 mg 50 mg PO DAILY 05/25/22 05/25/22 capsule phenobarbital 97.2 mg tablet 97.2 mg PO QPM 05/25/22 05/25/22 Previous Rx's Medication Instructions Recorded amlodipine 5 mg tablet (Norvasc) 5 mg PO HS #30 tabs 10/01/19 Results & Data (ED) Vital Signs Vital Signs - 24 hr 05/25/22 19:03 05/25/22 21:00 05/25/22 23:00 Pulse Rate [Radial] 61 109 H 87 Pulse Rhythm [Radial] Regular Regular Regular Pulse Strength [Radial] Normal Normal Normal Respiratory Rate 18 20 20 Respiratory Effort / Characteristics Non-Labored Spontaneous Non-Labored Spontaneous Non-Labored Spontaneous Respiratory Depth Normal Normal Normal Respiratory Pattern Regular Regular Regular Blood Pressure [Right Arm] 111/64 134/77 Blood Pressure Mean [Right Arm] 79 96 Blood Pressure Position [Right Arm] Lying Lying Pulse Oximetry 94 100 95 Oxygen Delivery Method Room Air Room Air Room Air Laboratory Data Result diagrams: 05/26/22 07:43 05/26/22 07:43 Lab Results 05/25/22 05/25/22 05/25/22 Range/Units 20:25 20:25 22:45 WBC 7.30 (4.8-10.8) K/ul RBC 4.10 (3.93-5.22) M/uL Hgb 14.0 (12.0-16.0) g/dl Hct 40.5 (34.1-44.9) % MCV 98.8 (80.0-100.0) fL MCH 34.1 H (25.0-34.0) pg MCHC 34.6 (32.0-36.0) g/dL RDW Std Deviation 46.1 (36.4-46.3) fL RDW Coeff of Con 12.8 (11.5-14.5) % Plt Count 213 (130-400) K/uL MPV 10.2 (9.4-12.3) fL Immature Gran % (Auto) 0.3 % Neut % (Auto) 69.2 % Lymph % (Auto) 20.3 % Cherry % (Auto) 6.2 % Eos % (Auto) 3.6 % Baso % (Auto) 0.4 % Neut # (Auto) 5.06 (1.4-6.5) K/uL Lymph # (Auto) 1.48 (1.2-3.4) K/uL Cherry # (Auto) 0.45 (0.24-0.82) K/uL Eos # (Auto) 0.26 (0-0.50) K/uL Baso # (Auto) 0.03 (0-0.2) K/uL Immature Gran # (Auto) 0.02 (0.00-0.02) K/uL Sodium 138 (136-145) mmol/L Potassium 4.4 (3.5-5.1) mmol/L Chloride 100 (98-107) mmol/L Carbon Dioxide 27 (21-32) mmol/L Anion Gap 11 (3-11) BUN 19 (6-23) mg/dl Creatinine 0.47 L (0.6-1.2) mg/dl Est Cr Clr Drug Dosing Not Reportable Est GFR ( Amer) 115.2 ml/min Est GFR (Non-Af Amer) 99.4 ml/min BUN/Creatinine Ratio 40.4 H (10-20) Glucose 112 H (70-99(Fasting)) mg/dl Calcium 9.8 (8.5-10.1) mg/dl Total Bilirubin 0.3 (0.2-1.0) mg/dl AST 22 (13-39) U/L ALT 22 (7-52) U/L Alkaline Phosphatase 98 (34-104) U/L Total Protein 8.0 (6.0-8.3) gm/dl Albumin 4.5 (3.4-5.0) gm/dl Globulin 3.5 (2.5-4.0) gm/dl Albumin/Globulin Ratio 1.3 (0.9-2) Lipase 34 (11-82) U/L SARS-CoV-2, RNA, NAAT NEGATIVE (NEGATIVE) Administered Medications Sodium Chloride (Nss 1000ml) 1,000 mls @ 125 mls/hr IV .Q8H JAYLA Stop: 06/24/22 18:59 Last Admin: 05/26/22 11:15 Dose: 125 mls/hr Documented By: Infusion: 05/26/22 11:05 Dose: 125 mls/hr Documented By: Admin: 05/26/22 03:05 Dose: 125 mls/hr Documented By: Infusion: 05/26/22 03:05 Dose: 125 mls/hr Documented By: Admin: 05/25/22 21:09 Dose: 125 mls/hr Documented By: KISHOR Famotidine 20 mg/ Syringe 5 mls @ 2.5 mls/min IV Q12 JAYLA Stop: 06/25/22 08:59 Last Admin: 05/26/22 09:48 Dose: 2.5 mls/min Documented By: RAD Magnesium Sulfate/Dextrose (Magnesium Sulfate / D5w) 1 gm in 100 mls @ 50 mls/hr IV Q2H JAYLA Stop: 05/26/22 17:44 Last Admin: 05/26/22 16:02 Dose: 50 mls/hr Documented By: Infusion: 05/26/22 16:02 Dose: 50 mls/hr Documented By: Admin: 05/26/22 14:04 Dose: 50 mls/hr Documented By: RAD Polyethylene Glycol (Polyethylene (Miralax) 17 Gm Pack) 17 gm PO DAILY JAYLA Stop: 06/25/22 13:44 Last Admin: 05/26/22 14:03 Dose: 17 gm Documented By: EA Discontinued Medications Bisacodyl (Bisacodyl 5 Mg Tabec) 5 mg PO NOW ONE Stop: 05/26/22 13:32 Last Admin: 05/26/22 14:03 Dose: 5 mg Documented By: RAD Sodium Chloride (Nss 1000ml) 500 mls @ 999 mls/hr IV .Q31M ONE Stop: 05/25/22 19:19 Last Infusion: 05/25/22 21:09 Dose: 0 mls/hr Documented By: Admin: 05/25/22 20:36 Dose: 999 mls/hr Documented By: ROE Imaging Data Radiologist's Impression: Abdomen/Pelvis CT 05/25/22 18:49 CT SCAN OF THE ABDOMEN AND PELVIS WITHOUT IV CONTRAST CLINICAL HISTORY: Generalized abdominal pain. COMPARISON STUDY: Abdominal CT dated 02/28/2022. TECHNIQUE: CT scan of the abdomen and pelvis is performed from the lung bases to the proximal femora. Images are reviewed in the axial, sagittal, and coronal planes. IV contrast was not administered for this examination. Note that the examination is significantly suboptimal without oral or IV contrast. There is also motion artifact, as well as streak artifact from the arms which could not be elevated above the abdomen. A dose lowering technique was utilized adhering to the principles of ALARA. CT DOSE: 451.17 mGy.cm FINDINGS: Lung bases: The heart is enlarged and without pericardial effusion. The coronary arteries are densely calcified. There is a small hiatal hernia. There is dependent consolidation. No pleural effusion is identified. Liver: The unenhanced liver is normal in size, contour, and attenuation. There is no intrahepatic biliary ductal dilatation. Gallbladder: Mildly distended but otherwise normal in appearance. Spleen: Normal in size and attenuation. Pancreas: The unenhanced pancreas is moderately atrophic and grossly unremarkable. Adrenal glands: Unremarkable. Kidneys: The unenhanced kidneys demonstrate mild cortical atrophy and are wit hout hydronephrosis. There are no renal calculi identified. Bilateral renal cysts measuring up to 4.2 cm. Abdominal vasculature: The abdominal aorta is normal in course and caliber. Bowel: There is rectosigmoid fecal impaction and severe constipation. There is wall thickening of the rectosigmoid colon with mild surrounding infiltration. The sigmoid measures up to 8.3 cm diameter. The small bowel loops are normal in caliber. The appendix is not visualized. Peritoneum: There is no intraperitoneal free air or abdominal ascites. Lymphadenopathy: None. Pelvic viscera: The bladder, uterus, and adnexa are normal as visualized. There is marked fatty atrophy of the right iliopsoas and bilateral pelvic musculature. Skeletal structures: The skeletal structures are osteopenic. Mild lumbosacral spondylosis is observed. Advanced degenerative change is seen in the hips. Destructive changes again noted involving the right femoral head with a joint effusion and numerous bony fragments. No lytic or blastic lesions are seen. IMPRESSION: 1. Significant suboptimal examination lateral IV contrast. There is also streak and motion artifact. 2. Rectosigmoid fecal impaction and severe constipation. 3. Wall thickening of the rectosigmoid with mild surrounding infiltration suggests stercoral proctocolitis. Clinical correlation required. 4. There is significant colonic distention and this could represent colonic ileus versus functional obstruction due to fecal burden. 5. The small bowel loops are normal in caliber. 6. Dependent consolidation likely represents scarring/atelectasis. Clinical correlation will be required. 7. Additional findings as above. ACT 112: Negative or not required by law. Electronically signed by: Abimael Jackson M.D. 05/25/2022 8:20 PM Discharge Plan Visit Data Chief Complaint: Abdominal Pain Stated Complaint: ABDOMINAL PAIN ED Provider: Mal Castro Discharge Problem: Abdominal pain, Stercoral colitis, Colon distention Patient Disposition: Admitted As Inpatient Discharge Instructions Interventions: ED Discharge Assessment Last Done: 05/26/22 02:37
--- NOTE | 2022-05-25 20:22 | CT Scan Report ---
CT SCAN OF THE ABDOMEN AND PELVIS WITHOUT IV CONTRAST CLINICAL HISTORY: Generalized abdominal pain. COMPARISON STUDY: Abdominal CT dated 02/28/2022. TECHNIQUE: CT scan of the abdomen and pelvis is performed from the lung bases to the proximal femora. Images are reviewed in the axial, sagittal, and coronal planes. IV contrast was not administered for this examination. Note that the examination is significantly suboptimal without oral or IV contrast. There is also motion artifact, as well as streak artifact from the arms which could not be elevated above the abdomen. A dose lowering technique was utilized adhering to the principles of ALARA. CT DOSE: 451.17 mGy.cm FINDINGS: Lung bases: The heart is enlarged and without pericardial effusion. The coronary arteries are densely calcified. There is a small hiatal hernia. There is dependent consolidation. No pleural effusion is identified. Liver: The unenhanced liver is normal in size, contour, and attenuation. There is no intrahepatic ryan iary ductal dilatation. Gallbladder: Mildly distended but otherwise normal in appearance. Spleen: Normal in size and attenuation. Pancreas: The unenhanced pancreas is moderately atrophic and grossly unremarkable. Adrenal glands: Unremarkable. Kidneys: The unenhanced kidneys demonstrate mild cortical atrophy and are without hydronephrosis. The re are no renal calculi identified. Bilateral renal cysts measuring up to 4.2 cm. Abdominal vasculature: The abdominal aorta is normal in course and caliber. Bowel: There is rectosigmoid fecal impaction and severe constipation. There is wall thickening of the rectosigmoid colon with mild surrounding infiltration. The sigmoid measures up to 8.3 cm diameter. T he small bowel loops are normal in caliber. The appendix is not visualized. Peritoneum: There is no intraperitoneal free air or abdominal ascites. Lymphadenopathy: None. Pelvic viscera: The bladder, uterus, and adnexa are normal as visualized. There is marked fatty atrop hy of the right iliopsoas and bilateral pelvic musculature. Skeletal structures: The skeletal structures are osteopenic. Mild lumbosacral spondylosis is observed . Advanced degenerative change is seen in the hips. Destructive changes again noted involving the rig ht femoral head with a joint effusion and numerous bony fragments. No lytic or blastic lesions are se en. IMPRESSION: 1. Significant suboptimal examination lateral IV contrast. There is also streak and motion artifact. 2. Rectosigmoid fecal impaction and severe constipation. 3. Wall thickening of the rectosigmoid with mild surrounding infiltration suggests stercoral proctoco litis. Clinical correlation required. 4. There is significant colonic distention and this could represent colonic ileus versus functional o bstruction due to fecal burden. 5. The small bowel loops are normal in caliber. 6. Dependent consolidation likely represents scarring/atelectasis. Clinical correlation will be requi red. 7. Additional findings as above. ACT 112: Negative or not required by law. Electronically signed by: Abimael Jackson M.D. 05/25/2022 8:20 PM
[2022-05-25 20:36] LABS: Basophils # (auto) 0.03 K/uL (0-0.2); Basophils % (auto) 0.4 %; Eosinophils # (auto) 0.26 K/uL (0-0.50); Eosinophils % (auto) 3.6 %; Hematocrit (blood only) 40.5 % (34.1-44.9); Immature Granulocytes # (auto) 0.02 K/uL (0.00-0.02); Immature Granulocytes % (auto) 0.3 %; Lymphocytes # (auto) 1.48 K/uL (1.2-3.4); Lymphocytes % (auto) 20.3 %; Mean Corpuscular Hemoglobin 34.1 pg (25.0-34.0); Mean Corpuscular Hgb Conc 34.6 g/dL (32.0-36.0); Mean Corpuscular Volume 98.8 fL (80.0-100.0); Mean Platelet Volume 10.2 fL (9.4-12.3); Monocytes # (auto) 0.45 K/uL (0.24-0.82); Monocytes % (auto) 6.2 %; Neutrophils # (auto) 5.06 K/uL (1.4-6.5); Neutrophils % (auto) 69.2 %; Platelet Count 213 K/uL (130-400); RDW Coefficient of Variation 12.8 % (11.5-14.5); RDW Standard Deviation 46.1 fL (36.4-46.3)
[2022-05-25 21:08] LABS: Alanine Aminotransferase 22 U/L (7-52); Albumin Globulin Ratio 1.3 (0.9-2); Albumin Level 4.5 gm/dl (3.4-5.0); Alkaline Phosphatase 98 U/L (34-104); Anion Gap 11 (3-11); Aspartate Aminotransferase 22 U/L (13-39); BUN Creatinine Ratio 40.4 (10-20); Bilirubin,Total 0.3 mg/dl (0.2-1.0); Blood Urea Nitrogen 19 mg/dl (6-23); Calcium 9.8 mg/dl (8.5-10.1); Carbon Dioxide 27 mmol/L (21-32); Chloride 100 mmol/L (98-107); Est GFR (African American) 115.2 ml/min; Est GFR (Non-African American) 99.4 ml/min; Globulin 3.5 gm/dl (2.5-4.0); Glucose 112 mg/dl (70-99(Fasting)); Lipase 34 U/L (11-82); Potassium 4.4 mmol/L (3.5-5.1); Sodium 138 mmol/L (136-145)
[2022-05-25] MEDS: SODIUM CHLORIDE 0.9% 1000ML 1,000 ML IV SCH (21:09)
--- NOTE | 2022-05-26 00:33 | History & Physical Report ---
Date of Service May 26, 2022 Assessment & Plan (1) Stercoral colitis: Plan: Patient's symptoms were already starting to improve as noted by her track repairer as bowel movements began to occur in the emergency department Continue IV fluid rehydration Hold any antibiotics at this time due to normal white blood cell count Follow clinical examination Hold omeprazole Placed on famotidine 20 mg IV every 12 hours (2) Colon distention: (3) Acute dehydration: Plan: IV fluids as noted above (4) Abdominal pain: Plan: Abdominal pain improving with movement of bowels (5) Seizure: Plan: Seizure disorder- Resume phenobarbital and other medications when able to in the a.m. (6) Quadriplegic cerebral palsy: Plan: Continue supportive medications when able to in the a.m. (7) Hypertension: Plan: Blood pressure acceptable at this time, resume medications when able to in the a.m. (8) Diabetes: Plan: hold metformin placed on Accu-Cheks with sliding scale when resumes diet in a.m. Glucose is 112 at this time, patient will be better served not being disturbed by Accu-Cheks for now (9) Hyperlipidemia: Plan: hold atorvastatin until tomorrow History of Present Illness Chief Complaint: The patient presents to the emergency department with complaint of abdominal distention, and left lower quadrant pain. Primary Care Provider: PUSHPA Moseley The patient is a 71-year-old female with a past medical history including quadriplegic cerebral palsy, pressure ulcer of coccygeal region stage III, pressure ulcer of contiguous region involving back and buttock stage I, generalized weakness, acute dehydration, acute UTI hyperlipidemia, muscle spasm, hypertension, dry eye and phenobarbital toxicity. The patient had reported to family that she was having discomfort in her left lower quadrant, and CT showed a likely stercoral proctocolitis with associated ileus versus functional obstruction. Her track repairer reported that while she was in the hospital emergency department, her bowels to start to move, that as I examined her she was significantly less tender, and seem to be improving symptom briscoe Allergies Allergy/AdvReac Type Severity Reaction Status Date / Time ampicillin Allergy Unknown rash Verified 05/25/22 22:17 carbidopa Allergy Unknown Unknown Verified 05/25/22 22:17 levodopa Allergy Unknown Unknown Verified 05/25/22 22:17 Penicillins Allergy Unknown rash Verified 05/25/22 22:17 Home Medications Medication Instructions Recorded Confirmed Type atorvastatin 20 mg tablet 20 mg PO PM 09/05/18 05/25/22 History baclofen 20 mg tablet 20 mg PO QID 09/05/18 05/25/22 History calcium carb-vit D3-minerals 600 1 tab PO DAILY 09/05/18 05/25/22 History mg calcium-400 unit tablet (Calcium 600 + Minerals) carbamide peroxide 6.5 % ear drops 5 drp otic (ear) WK 09/05/18 05/25/22 History (Debrox) cholecalciferol (vitamin D3) 25 1,000 unit PO QAM 09/05/18 05/25/22 History mcg (1,000 unit) tablet (Vitamin D3) diazepam 5 mg tablet 5 mg PO TID 09/05/18 05/25/22 History fluticasone propionate 50 1 spray intranasal QAM 09/05/18 05/25/22 History mcg/actuation nasal spray,suspension loratadine 10 mg tablet 10 mg PO QAM 09/05/18 05/25/22 History meloxicam 7.5 mg tablet 7.5 mg PO QAM 09/05/18 05/25/22 History metformin 500 mg tablet 500 mg PO QAM 09/05/18 05/25/22 History polyethylene glycol 3350 17 17 g PO Q OTHER DAY 09/05/18 05/25/22 History gram/dose oral powder (Miralax) docusate sodium 100 mg capsule 200 mg PO QAM 09/18/19 05/25/22 History (Stool Softener) [id number] 1 tab PO DAILY 09/18/19 05/25/22 History tablet (Cerovite Senior) olopatadine 0.2 % eye drops 1 drp ophthalmic (eye) QAM 09/18/19 05/25/22 History sodium chloride 0.65 % nasal spray 2 spray intranasal QAM 09/18/19 05/25/22 History aerosol (Saline Nasal Mist) amlodipine 5 mg tablet (Norvasc) 5 mg PO HS #30 tabs 10/01/19 05/25/22 Rx omeprazole 20 mg capsule,delayed 20 mg PO QAM 01/12/20 05/25/22 History release acetaminophen 500 mg tablet 1,000 mg PO Q6H PRN Pain 03/27/21 05/25/22 History (Tylenol Extra Strength) lisinopril 10 mg tablet 10 mg PO QPM 03/27/21 05/25/22 History loperamide 2 mg tablet 2 mg PO QID PRN Diarrhea 03/27/21 05/25/22 History carboxymethylcellulose sodium 0.5 1 drp OPB QPM 11/21/21 05/25/22 History % eye drops (Refresh Tears) cyclosporine 0.05 % eye drops in a 1 drp ophthalmic (eye) Q12 11/21/21 05/25/22 History dropperette (Restasis) acetaminophen 500 mg tablet 1,000 mg PO Q6H PRN Pain 05/25/22 05/25/22 History (Tylenol Extra Strength) nitrofurantoin macrocrystal 50 mg 50 mg PO DAILY 05/25/22 05/25/22 History capsule phenobarbital 97.2 mg tablet 97.2 mg PO QPM 05/25/22 05/25/22 History Past Med/Surg History Medical History (Updated 05/26/22 @ 04:16 by Emmanuel Rutherford MD) Cerebral palsy Diabetes Hyperlipidemia Hypertension Quadriplegic cerebral palsy Seizure Family History Other Diabetes Hypertension Social History Smoking Status: Never smoker Hx Alcohol Use: No Hx Substance Use: No Preferred Language: Pakistani Communication Ability: Unable Beliefs That Will Affect Care: None marital status: Single Current Living Situation: Other Current Living Situation Comment: [email or web address] current occupational status: disabled Feels Safe at Home: Yes Diet Comment: high protein diet as well to foster wound healing during the past year weight has: remained stable Assistive Devices: None Review of Systems Review of Systems: The patient does not contribute significantly to HPI or review of systems due to ongoing mental state Physical Exam Physical Exam: The patient is awake, does not respond to me but does look toward her track repairer, well developed and well nourished, normocephalic and atraumatic, lying in bed and in no acute distress. HEENT--PERRL, EOMI, mucous membranes and oropharynx dry. Neck--supple. No JVD. No bruits. Thyroid normal, trachea midline, no adenopat hy. Heart--normal S1 and S2. No murmurs, rubs or gallops. Lungs--clear bilaterally, no respiratory distress, no accessory muscle use. Abdomen--normal bowel sounds and soft. Nontender. Nondistended, no hernias or masses, no organomegaly. Extremities--no cyanosis or clubbing. No edema. Dermatologic--normal skin turgor, normal color, no abnormal lymph nodes, no rash. Neurologic--cranial nerves II through XII grossly intact. Rheumatologic--normal range of motion. Psychiatric--normal affect. Results & Data Results & Data ([facility]) Vital Signs (Past 12 Hours) Vital Signs Temp Pulse Pulse Resp BP BP Pulse Ox 05/25/22 23:00 87 20 134/77 95 05/25/22 21:00 109 H 20 100 05/25/22 19:03 61 18 111/64 94 05/25/22 15:22 36.5 C 121 H 18 149/71 H 98 O2 Del Method 05/25/22 23:00 Room Air 05/25/22 21:00 Room Air 05/25/22 19:03 Room Air 05/25/22 15:22 Room Air Laboratory Results Laboratory Results WBC 7.30 K/ul (4.8-10.8) 05/25/22 20:25 RBC 4.10 M/uL (3.93-5.22) 05/25/22 20:25 Hgb 14.0 g/dl (12.0-16.0) 05/25/22 20:25 Hct 40.5 % (34.1-44.9) 05/25/22 20:25 MCV 98.8 fL (80.0-100.0) 05/25/22 20:25 MCH 34.1 pg (25.0-34.0) H 05/25/22 20:25 MCHC 34.6 g/dL (32.0-36.0) 05/25/22 20:25 RDW Std Deviation 46.1 fL (36.4-46.3) 05/25/22 20:25 RDW Coeff of Con 12.8 % (11.5-14.5) 05/25/22 20:25 Plt Count 213 K/uL (130-400) 05/25/22 20:25 MPV 10.2 fL (9.4-12.3) 05/25/22 20:25 Immature Gran % (Auto) 0.3 % 05/25/22 20:25 Neut % (Auto) 69.2 % 05/25/22 20:25 Lymph % (Auto) 20.3 % 05/25/22 20:25 [place] % (Auto) 6.2 % 05/25/22 20:25 Eos % (Auto) 3.6 % 05/25/22 20:25 Baso % (Auto) 0.4 % 05/25/22 20:25 Neut # (Auto) 5.06 K/uL (1.4-6.5) 05/25/22 20: Lymph # (Auto) 1.48 K/uL (1.2-3.4) 05/25/22 20:25 [place] # (Auto) 0.45 K/uL (0.24-0.82) 05/25/22 20:25 Eos # (Auto) 0.26 K/uL (0-0.50) 05/25/22 20: Baso # (Auto) 0.03 K/uL (0-0.2) 05/25/22 20:25 Immature Gran # (Auto) 0.02 K/uL (0.00-0.02) 05/25/22 20: Sodium 138 mmol/L (136-145) 05/25/22 20:25 Potassium 4.4 mmol/L (3.5-5.1) 05/25/22 20:25 Chloride 100 mmol/L (98-107) 05/25/22 20:25 Carbon Dioxide 27 mmol/L (21-32) 05/25/22 20:25 Anion Gap 11 (3-11) 05/25/22 20:25 BUN 19 mg/dl (6-23) 05/25/22 20:25 Creatinine 0.47 mg/dl (0.6-1.2) L 05/25/22 20:25 Est Cr Clr Drug Dosing Not Reportable 05/25/22 20:25 Est GFR ( Amer) 115.2 ml/min 05/25/22 20:25 Est GFR (Non-Af Amer) 99.4 ml/min 05/25/22 20:25 BUN/Creatinine Ratio 40.4 (10-20) H 05/25/22 20:25 Glucose 112 mg/dl (70-99(Fasting)) H 05/25/22 20:25 Calcium 9.8 mg/dl (8.5-10.1) 05/25/22 20:25 Total Bilirubin 0.3 mg/dl (0.2-1.0) 05/25/22 20:25 AST 22 U/L (13-39) 05/25/22 20:25 ALT 22 U/L (7-52) 05/25/22 20:25 Alkaline Phosphatase 98 U/L (34-104) 05/25/22 20:25 Total Protein 8.0 gm/dl (6.0-8.3) 05/25/22 20:25 Albumin 4.5 gm/dl (3.4-5.0) 05/25/22 20:25 Globulin 3.5 gm/dl (2.5-4.0) 05/25/22 20:25 Albumin/Globulin Ratio 1.3 (0.9-2) 05/25/22 20:25 Lipase 34 U/L (11-82) 05/25/22 20:25 SARS-CoV-2, RNA, NAAT NEGATIVE (NEGATIVE) 05/25/22 22:45 Impressions Abdomen/Pelvis CT 05/25/22 18:49 CT SCAN OF THE ABDOMEN AND PELVIS WITHOUT IV CONTRAST CLINICAL HISTORY: Generalized abdominal pain. COMPARISON STUDY: Abdominal CT dated 02/28/2022. TECHNIQUE: CT scan of the abdomen and pelvis is performed from the lung bases to the proximal femora. Images are reviewed in the axial, sagittal, and coronal planes. IV contrast was not administered for this examination. Note that the examination is significantly suboptimal without oral or IV contrast. There is also motion artifact, as well as streak artifact from the arms which could not be elevated above the abdomen. A dose lowering technique was utilized adhering to the principles of ALARA. CT DOSE: 451.17 mGy.cm FINDINGS: Lung bases: The heart is enlarged and without pericardial effusion. The coronary arteries are densely calcified. There is a small hiatal hernia. There is dependent consolidation. No pleural effusion is identified. Liver: The unenhanced liver is normal in size, contour, and attenuation. There is no intrahepatic biliary ductal dilatation. Gallbladder: Mildly distended but otherwise normal in appearance. Spleen: Normal in size and attenuation. Pancreas: The unenhanced pancreas is moderately atrophic and grossly unremarkable. Adrenal glands: Unremarkable. Kidneys: The unenhanced kidneys demonstrate mild cortical atrophy and are without hydronephrosis. There are no renal calculi identified. Bilateral renal cysts measuring up to 4.2 cm. Abdominal vasculature: The abdominal aorta is normal in course and caliber. Bowel: There is rectosigmoid fecal impaction and severe constipation. There is wall thickening of the rectosigmoid colon with mild surrounding infiltration. The sigmoid measures up to 8.3 cm diameter. The small bowel loops are normal in caliber. The appendix is not visualized. Peritoneum: There is no intraperitoneal free air or abdominal ascites. Lymphadenopathy: None. Pelvic viscera: The bladder, uterus, and adnexa are normal as visualized. There is marked fatty atrophy of the right iliopsoas and bilateral pelvic musculature. Skeletal structures: The skeletal structures are osteopenic. Mild lumbosacral spondylosis is observed. Advanced degenerative change is seen in the hips. Destructive changes again noted involving the right femoral head with a joint effusion and numerous bony fragments. No lytic or blastic lesions are seen. IMPRESSION: 1. Significant suboptimal examination lateral IV contrast. There is also streak and motion artifact. 2. Rectosigmoid fecal impaction and severe constipation. 3. Wall thickening of the rectosigmoid with mild surrounding infiltration suggests stercoral proctocolitis. Clinical correlation required. 4. There is significant colonic distention and this could represent colonic ileus versus functional obstruction due to fecal burden. 5. The small bowel loops are normal in caliber. 6. Dependent consolidation likely represents scarring/atelectasis. Clinical correlation will be required. 7. Additional findings as above. ACT 112: Negative or not required by law. Electronically signed by: Abimael Jackson M.D. 05/25/2022 8:20 PM Code Status & VTE Plan Code Status Full code VTE Prophylaxis Plan VTE Prophylaxis will be ordered: Yes
[2022-05-26] MEDS: SODIUM CHLORIDE 0.9% 1000ML 1,000 ML IV SCH ×3 (03:05→19:45)
[2022-05-26] MEDS ORDERED: ONDANSETRON INJ 2 MG/ML 2 ML VIAL IV PRN (03:13)
--- NOTE | 2022-05-26 04:18 | Billing Data ---
Date of Service May 26, 2022 Coding Level of Care Code INT OBSERVATION CARE 70M LVL 3
[2022-05-26 06:42] LABS: Appearance Urine Clear (Clear); Bilirubin Urine Negative (Negative); Blood Urine Negative (Negative); Color Urine Yellow; Glucose Urine UA Negative (Negative); Ketones Urine Negative (Negative); Leukocyte Esterase Urine Negative (Negative); Nitrite Urine Negative (Negative); Protein Urine Negative (Negative); Specific Gravity Urine 1.016 (1.000-1.030); Urobilinogen Urine Negative (Negative); pH Urine 7.5 (4.5-7.5)
[2022-05-26 07:57] LABS: Basophils # (auto) 0.03 K/uL (0-0.2); Basophils % (auto) 0.4 %; Eosinophils # (auto) 0.18 K/uL (0-0.50); Eosinophils % (auto) 2.4 %; Hematocrit (blood only) 37.9 % (34.1-44.9); Hemoglobin 12.9 g/dl (12.0-16.0); Immature Granulocytes # (auto) 0.03 K/uL (0.00-0.02); Immature Granulocytes % (auto) 0.4 %; Lymphocytes % (auto) 17.4 %; Mean Corpuscular Hemoglobin 33.8 pg (25.0-34.0); Mean Corpuscular Volume 99.2 fL (80.0-100.0); Mean Platelet Volume 10.3 fL (9.4-12.3); Monocytes # (auto) 0.72 K/uL (0.24-0.82); Monocytes % (auto) 9.6 %; Neutrophils # (auto) 5.21 K/uL (1.4-6.5); Neutrophils % (auto) 69.8 %; Platelet Count 168 K/uL (130-400); RDW Coefficient of Variation 12.8 % (11.5-14.5); RDW Standard Deviation 46.4 fL (36.4-46.3); Red Blood Count 3.82 M/uL (3.93-5.22); White Blood Count 7.47 K/ul (4.8-10.8)
[2022-05-26 08:27] LABS: Alanine Aminotransferase 15 U/L (7-52); Albumin Globulin Ratio 1.4 (0.9-2); Albumin Level 3.7 gm/dl (3.4-5.0); Alkaline Phosphatase 78 U/L (34-104); Anion Gap 6 (3-11); Aspartate Aminotransferase 17 U/L (13-39); BUN Creatinine Ratio 46.9 (10-20); Bilirubin,Total 0.3 mg/dl (0.2-1.0); Blood Urea Nitrogen 15 mg/dl (6-23); Calcium 8.2 mg/dl (8.5-10.1); Carbon Dioxide 25 mmol/L (21-32); Chloride 107 mmol/L (98-107); Est GFR (African American) 130.7 ml/min; Est GFR (Non-African American) 112.8 ml/min; Globulin 2.6 gm/dl (2.5-4.0); Glucose 111 mg/dl (70-99(Fasting)); Potassium 4.1 mmol/L (3.5-5.1); Sodium 138 mmol/L (136-145); Total Protein 6.3 gm/dl (6.0-8.3)
[2022-05-26] MEDS: FAMOTIDINE 20 MG in SYRINGE 3 ML IV SCH ×2 (09:48→20:11)
[2022-05-26] MEDS ORDERED: bisacodyL 5 MG TABEC PO ONE (13:31)
[2022-05-26] MEDS: POLYETHYLENE (MIRALAX) 17 GM PACK PO SCH (14:03)
[2022-05-26] MEDS: MAGNESIUM SULFATE / D5W 1 GM/100 ML BAG IV SCH ×2 (14:04→16:02)
--- NOTE | 2022-05-26 20:02 | XRay Report ---
XR chest 1V portable CLINICAL HISTORY: hypoxia, cough; ?pneumonia COMPARISON STUDY: Chest radiograph and chest CT February 28, 2022. FINDINGS: Patient is rotated. There is no pneumothorax. Small bilateral pleural effusions are present . Moderate interstitial thickening is noted. This represent pulmonary edema. Cardiomediastinal silhou ette is stable. IMPRESSION: Moderate interstitial pulmonary edema with small bilateral pleural effusions. ACT 112: Negative or not required by law. Electronically signed by: Augustus Jeffrey M.D. 05/26/2022 8:00 PM
--- NOTE | 2022-05-26 20:14 | XRay Report ---
KUB CLINICAL HISTORY: fecal impaction/obstipation COMPARISON STUDY: CT of the abdomen and pelvis May 25, 2022. FINDINGS: Chronic deformity of the right hip is noted. There is severe left hip osteoarthritis. Large amount of stool within the rectum is noted. Multiple loops of distended small large bowel are noted. These are similar to prior exam. IMPRESSION: 1. Large amount of stool within the rectum. 2. No significant change in small and large bowel dilatation. ACT 112: Negative or not required by law. Electronically signed by: Augustus Jeffrey M.D. 05/26/2022 8:12 PM
[2022-05-26] MEDS ORDERED: FUROSEMIDE INJ 20 MG/2 ML VIAL IV ONE ×3 (20:26→22:11)
--- NOTE | 2022-05-26 20:30 | Hospitalist Progress Note ---
Date of Service May 26, 2022 Assessment & Plan (1) Stercoral colitis: Plan: Patient's symptoms were already starting to improve as noted by her ring packer as bowel movements began to occur in the emergency department Continue IV fluid rehydration Hold any antibiotics at this time due to normal white blood cell count Follow clinical examination Hold omeprazole Placed on famotidine 20 mg IV every 12 hours (2) Colon distention: (3) Acute dehydration: Plan: IV fluids as noted above (4) Abdominal pain: Plan: Abdominal pain improving with movement of bowels (5) Seizure: Plan: Seizure disorder- Resume phenobarbital and other medications when able to in the a.m. (6) Quadriplegic cerebral palsy: Plan: Continue supportive medications when able to in the a.m. (7) Hypertension: Plan: Blood pressure acceptable at this time, resume medications when able to in the a.m. (8) Diabetes: Plan: hold metformin placed on Accu-Cheks with sliding scale when resumes diet in a.m. Glucose is 112 at this time, patient will be better served not being disturbed by Accu-Cheks for now (9) Hyperlipidemia: Plan: hold atorvastatin until tomorrow Admission and Anticipated Discharge Date Admission Date: May 26, 2022 Results & Data Results & Data ([facility]) Vital Signs (Past 12 Hours) Vital Signs Temp Pulse Resp BP Pulse Ox O2 Del Method O2 Flow Rate 05/26/22 15:54 95 Nasal Cannula 2 05/26/22 15:41 36.4 C L 114 H 18 145/80 H 91 Room Air Laboratory Results Laboratory Results - last 24 hr 05/25/22 05/25/22 05/25/22 20:25 20:25 22:45 WBC 7.30 RBC 4.10 Hgb 14.0 Hct 40.5 MCV 98.8 MCH 34.1 H MCHC 34.6 RDW Std Deviation 46.1 RDW Coeff of Con 12.8 Plt Count 213 MPV 10.2 Immature Gran % (Auto) 0.3 Neut % (Auto) 69.2 Lymph % (Auto) 20.3 [place] % (Auto) 6.2 Eos % (Auto) 3.6 Baso % (Auto) 0.4 Neut # (Auto) 5.06 Lymph # (Auto) 1.48 [place] # (Auto) 0.45 Eos # (Auto) 0.26 Baso # (Auto) 0.03 Immature Gran # (Auto) 0.02 Sodium 138 Potassium 4.4 Chloride 100 Carbon Dioxide 27 Anion Gap 11 BUN 19 Creatinine 0.47 L Est Cr Clr Drug Dosing Not Reportable Est GFR ( Amer) 115.2 Est GFR (Non-Af Amer) 99.4 BUN/Creatinine Ratio 40.4 H Glucose 112 H POC Glucose Calcium 9.8 Magnesium Total Bilirubin 0.3 AST 22 ALT 22 Alkaline Phosphatase 98 Total Protein 8.0 Albumin 4.5 Globulin 3.5 Albumin/Globulin Ratio 1.3 Lipase 34 TSH Free T4 Urine Color Urine Appearance Urine pH Ur Specific [place] Urine Protein Urine Glucose (UA) Urine Ketones Urine Blood Urine Nitrite Urine Bilirubin Urine Urobilinogen Ur Leukocyte Esterase Nasal Screen MRSA (PCR) SARS-CoV-2, RNA, NAAT NEGATIVE 05/26/22 05/26/22 05/26/22 05:30 05:30 07:43 WBC 7.47 RBC 3.82 L Hgb 12.9 Hct 37.9 MCV 99.2 MCH 33.8 MCHC 34.0 RDW Std Deviation 46.4 H RDW Coeff of Con 12.8 Plt Count 168 MPV 10.3 Immature Gran % (Auto) 0.4 Neut % (Auto) 69.8 Lymph % (Auto) 17.4 [place] % (Auto) 9.6 Eos % (Auto) 2.4 Baso % (Auto) 0.4 Neut # (Auto) 5.21 Lymph # (Auto) 1.30 [place] # (Auto) 0.72 Eos # (Auto) 0.18 Baso # (Auto) 0.03 Immature Gran # (Auto) 0.03 H Sodium Potassium Chloride Carbon Dioxide Anion Gap BUN Creatinine Est Cr Clr Drug Dosing Est GFR ( Amer) Est GFR (Non-Af Amer) BUN/Creatinine Ratio Glucose POC Glucose Calcium Magnesium Total Bilirubin AST ALT Alkaline Phosphatase Total Protein Albumin Globulin Albumin/Globulin Ratio Lipase TSH Free T4 Urine Color Yellow Urine Appearance Clear Urine pH 7.5 Ur Specific [place] 1.016 Urine Protein Negative Urine Glucose (UA) Negative Urine Ketones Negative Urine Blood Negative Urine Nitrite Negative Urine Bilirubin Negative Urine Urobilinogen Negative Ur Leukocyte Esterase Negative Nasal Screen MRSA (PCR) Negative SARS-CoV-2, RNA, NAAT 05/26/22 05/26/22 05/26/22 07:43 12:20 12:20 WBC RBC Hgb Hct MCV MCH MCHC RDW Std Deviation RDW Coeff of Con Plt Count MPV Immature Gran % (Auto) Neut % (Auto) Lymph % (Auto) [place] % (Auto) Eos % (Auto) Baso % (Auto) Neut # (Auto) Lymph # (Auto) [place] # (Auto) Eos # (Auto) Baso # (Auto) Immature Gran # (Auto) Sodium 138 Potassium 4.1 Chloride 107 Carbon Dioxide 25 Anion Gap 6 BUN 15 Creatinine 0.32 L Est Cr Clr Drug Dosing Not Reportable Est GFR ( Amer) 130.7 Est GFR (Non-Af Amer) 112.8 BUN/Creatinine Ratio 46.9 H Glucose 111 H POC Glucose Calcium 8.2 L Magnesium 1.6 L Total Bilirubin 0.3 AST 17 ALT 15 Alkaline Phosphatase 78 Total Protein 6.3 D Albumin 3.7 Globulin 2.6 Albumin/Globulin Ratio 1.4 Lipase TSH Free T4 0.98 Urine Color Urine Appearance Urine pH Ur Specific [place] Urine Protein Urine Glucose (UA) Urine Ketones Urine Blood Urine Nitrite Urine Bilirubin Urine Urobilinogen Ur Leukocyte Esterase Nasal Screen MRSA (PCR) SARS-CoV-2, RNA, NAAT 05/26/22 05/26/22 12:20 17:06 WBC RBC Hgb Hct MCV MCH MCHC RDW Std Deviation RDW Coeff of Con Plt Count MPV Immature Gran % (Auto) Neut % (Auto) Lymph % (Auto) [place] % (Auto) Eos % (Auto) Baso % (Auto) Neut # (Auto) Lymph # (Auto) [place] # (Auto) Eos # (Auto) Baso # (Auto) Immature Gran # (Auto) Sodium Potassium Chloride Carbon Dioxide Anion Gap BUN Creatinine Est Cr Clr Drug Dosing Est GFR ( Amer) Est GFR (Non-Af Amer) BUN/Creatinine Ratio Glucose POC Glucose 128 H Calcium Magnesium Total Bilirubin AST ALT Alkaline Phosphatase Total Protein Albumin Globulin Albumin/Globulin Ratio Lipase TSH 2.533 Free T4 Urine Color Urine Appearance Urine pH Ur Specific [place] Urine Protein Urine Glucose (UA) Urine Ketones Urine Blood Urine Nitrite Urine Bilirubin Urine Urobilinogen Ur Leukocyte Esterase Nasal Screen MRSA (PCR) SARS-CoV-2, RNA, NAAT PG Care Time/CCT Total # of Minutes Spent Total Time Spent with Patient: Total time spent is greater than 50% in coordination of care (as documented) at patient's floor/unit and/or counseling patient: Coding Diagnoses Stercoral colitis K52.89 Colon distention K63.89 Acute dehydration E86.0 Abdominal pain R10.9 Seizure R56.9 Quadriplegic cerebral palsy G80.8 Hypertension I10 Diabetes E11.9 Hyperlipidemia E78.5
[2022-05-26] MEDS: diazePAM 5 MG TABLET PO SCH ×2 (21:40→22:51)
[2022-05-26] MEDS: HEPARIN SOD 5,000 UNIT/0.5 ML VIAL SQ SCH (21:40)
[2022-05-26] MEDS: BACLOFEN 20 MG TAB PO SCH ×2 (21:41→22:51)
[2022-05-26] MEDS ORDERED: FUROSEMIDE 40 MG/4 ML VIAL IV ONE (22:02)
[2022-05-26] MEDS ORDERED: ALBUT/IPRATROP 3MG/0.5MG NEB 3 ML VIAL NEB STA (22:11)
--- NOTE | 2022-05-26 22:22 | Communication Note ---
Date of Service: May 26, 2022 Purple called due to desaturation to 70s. Patient responsive at bedside, also tachycardic and tachypneic. Saturations fluctuating between low 90s and low 80s on 11 L oxygen mask. Chest x-ray prior to this episode showing moderate interstitial pulmonary edema with small bilateral pleural effusions, also concerning for possible aspiration. As such, patient administered 20 mg of IV Lasix, started on positive pressure ventilation, DuoNeb ordered, chest percussion, and hypertonic saline nebs. Transferred to telemetry for closer monitoring. Resident Activity Tracking Resident Involvement: Resident Care Provided Care Provided: Adult [facility] Medicine
[2022-05-26] MEDS: PHENobarbitaL 30 MG TAB PO SCH (22:51)
--- NOTE | 2022-05-26 23:52 | Hospitalist Progress Note ---
Date of Service May 26, 2022 Assessment & Plan (1) Stercoral colitis: Plan: clinically improved numerous bowel movements today s/p enema in the ER overnight, followed by dulcolax and miralax early this afternoon clear liquids were started - per nursing staff tolerated without difficulty (2) Fecal impaction: Plan: clinically improving as above (3) Colon distention: Plan: 2nd to #1 and/or "institutional bowel" (ie chronic ileus due to nonambulatory status) should improve with Rx of #1 replace low mag clear liquid diet only at this time (4) Hypoxia: Plan: the patient had been in RA until the afternoon when mild hypoxia was noted NC O2 was applied following my visit pCXR was obtained - my reading - pulmonary edema w/ effusions IV fluids completely stopped patient is small size and lasix naive thus -- lasix 10mg IV x 1 follow response given EKG findings and tachycardia along with pulmonary edema echo will be ordered for the am can't rule out brewing infectious process but no fever, normal wbc count this am, etc (5) Quadriplegic cerebral palsy: Plan: lives at [facility] when taking regular diet down the line she will need pureed texture patient is on chronic valium 5mg TID to avoid withdrawal and risk of seizures will resume such also renew her baclofen (6) Hypertension: Plan: BPs mildly high but acceptable for now (7) Diabetes: Plan: takes metformin 500 once daily this is on hold check BSGs check an a1c while hospitalized (8) Seizure disorder: Plan: resume phenobarbital check phenobarbital level in am (9) DVT prophylaxis: Plan: add heparin 5000 BID (10) Hypomagnesemia: Plan: replace with 2 grams mag sulfate repeat level am (11) Sinus tachycardia: Plan: chronic dating back to 2019 based on vital signs in the medical record [id number], given her EKG findings (low voltage, anterior ST changes, etc) - obtain echo in am TSH, FT4 wnl H/H stable Admission and Anticipated Discharge Date Admission Date: May 26, 2022 Subjective was in contact with nursing staff throughout the day regarding Ms Amanda's stooling she had multiple large bowel movements during the day she had no obvious abdominal pain per staff no vomiting clear liquids were allowed later in the day and she tolerated these per staff the patient had low o2 sats in the 80s NC O2 was applied with return of sats to the 90s during my assessment the patient was nonverbal and unable to offer any history/ROS Review of Systems Review of Systems: Unobtainable due to cognitive status Physical Exam Physical Exam: gen - dysmorphic in appearance, NAD, does not follow commands mouth - MMM heart - tachy, s1 s2, no murmur lungs - decreased BS bases, CTA apices, mild tachypnea noted abd - distended, BS+, NT, no HSM ext - no edema, pulses 2+ b/l neuro - quadriplegia Results & Data Results & Data ([facility]) Vital Signs (Past 12 Hours) Vital Signs Temp Pulse Pulse Resp BP BP Pulse Ox 05/26/22 22:05 125 H 33 H 97 05/26/22 22:38 05/26/22 21:42 05/26/22 21:46 127 H 34 H 88 L 05/26/22 21:44 128 H 36 H 79 L 05/26/22 22:23 36.9 C 127 H 26 H 137/87 96 05/26/22 15:54 95 05/26/22 15:41 36.4 C L 114 H 18 145/80 H 91 O2 Del Method O2 Flow Rate FiO2 05/26/22 22:05 30 05/26/22 22:38 CPAP 30 05/26/22 21:42 Nasal Cannula 2 05/26/22 21:46 Oxymask 11 05/26/22 21:44 Nasal Cannula 2 05/26/22 22:23 CPAP 05/26/22 15:54 Nasal Cannula 2 05/26/22 15:41 Room Air Laboratory Results Laboratory Results - last 24 hr 05/26/22 05/26/22 05/26/22 05:30 05:30 07:43 WBC 7.47 RBC 3.82 L Hgb 12.9 Hct 37.9 MCV 99.2 MCH 33.8 MCHC 34.0 RDW Std Deviation 46.4 H RDW Coeff of Con 12.8 Plt Count 168 MPV 10.3 Immature Gran % (Auto) 0.4 Neut % (Auto) 69.8 Lymph % (Auto) 17.4 Foster % (Auto) 9.6 Eos % (Auto) 2.4 Baso % (Auto) 0.4 Neut # (Auto) 5.21 Lymph # (Auto) 1.30 Foster # (Auto) 0.72 Eos # (Auto) 0.18 Baso # (Auto) 0.03 Immature Gran # (Auto) 0.03 H Sodium Potassium Chloride Carbon Dioxide Anion Gap BUN Creatinine Est Cr Clr Drug Dosing Est GFR ( Amer) Est GFR (Non-Af Amer) BUN/Creatinine Ratio Glucose POC Glucose Calcium Magnesium Total Bilirubin AST ALT Alkaline Phosphatase Total Protein Albumin Globulin Albumin/Globulin Ratio TSH Free T4 Urine Color Yellow Urine Appearance Clear Urine pH 7.5 Ur Specific [place] 1.016 Urine Protein Negative Urine Glucose (UA) Negative Urine Ketones Negative Urine Blood Negative Urine Nitrite Negative Urine Bilirubin Negative Urine Urobilinogen Negative Ur Leukocyte Esterase Negative Nasal Screen MRSA (PCR) Negative 05/26/22 05/26/22 05/26/22 07:43 12:20 12:20 WBC RBC Hgb Hct MCV MCH MCHC RDW Std Deviation RDW Coeff of Con Plt Count MPV Immature Gran % (Auto) Neut % (Auto) Lymph % (Auto) Foster % (Auto) Eos % (Auto) Baso % (Auto) Neut # (Auto) Lymph # (Auto) Foster # (Auto) Eos # (Auto) Baso # (Auto) Immature Gran # (Auto) Sodium 138 Potassium 4.1 Chloride 107 Carbon Dioxide 25 Anion Gap 6 BUN 15 Creatinine 0.32 L Est Cr Clr Drug Dosing Not Reportable Est GFR ( Amer) 130.7 Est GFR (Non-Af Amer) 112.8 BUN/Creatinine Ratio 46.9 H Glucose 111 H POC Glucose Calcium 8.2 L Magnesium 1.6 L Total Bilirubin 0.3 AST 17 ALT 15 Alkaline Phosphatase 78 Total Protein 6.3 D Albumin 3.7 Globulin 2.6 Albumin/Globulin Ratio 1.4 TSH Free T4 0.98 Urine Color Urine Appearance Urine pH Ur Specific [place] Urine Protein Urine Glucose (UA) Urine Ketones Urine Blood Urine Nitrite Urine Bilirubin Urine Urobilinogen Ur Leukocyte Esterase Nasal Screen MRSA (PCR) 05/26/22 05/26/22 05/26/22 12:20 17:06 20:40 WBC RBC Hgb Hct MCV MCH MCHC RDW Std Deviation RDW Coeff of Con Plt Count MPV Immature Gran % (Auto) Neut % (Auto) Lymph % (Auto) Foster % (Auto) Eos % (Auto) Baso % (Auto) Neut # (Auto) Lymph # (Auto) Foster # (Auto) Eos # (Auto) Baso # (Auto) Immature Gran # (Auto) Sodium Potassium Chloride Carbon Dioxide Anion Gap BUN Creatinine Est Cr Clr Drug Dosing Est GFR ( Amer) Est GFR (Non-Af Amer) BUN/Creatinine Ratio Glucose POC Glucose 128 H 128 H Calcium Magnesium Total Bilirubin AST ALT Alkaline Phosphatase Total Protein Albumin Globulin Albumin/Globulin Ratio TSH 2.533 Free T4 Urine Color Urine Appearance Urine pH Ur Specific [place] Urine Protein Urine Glucose (UA) Urine Ketones Urine Blood Urine Nitrite Urine Bilirubin Urine Urobilinogen Ur Leukocyte Esterase Nasal Screen MRSA (PCR) 05/26/22 22:19 WBC RBC Hgb Hct MCV MCH MCHC RDW Std Deviation RDW Coeff of Con Plt Count MPV Immature Gran % (Auto) Neut % (Auto) Lymph % (Auto) Foster % (Auto) Eos % (Auto) Baso % (Auto) Neut # (Auto) Lymph # (Auto) Foster # (Auto) Eos # (Auto) Baso # (Auto) Immature Gran # (Auto) Sodium Potassium Chloride Carbon Dioxide Anion Gap BUN Creatinine Est Cr Clr Drug Dosing Est GFR ( Amer) Est GFR (Non-Af Amer) BUN/Creatinine Ratio Glucose POC Glucose 217 H Calcium Magnesium Total Bilirubin AST ALT Alkaline Phosphatase Total Protein Albumin Globulin Albumin/Globulin Ratio TSH Free T4 Urine Color Urine Appearance Urine pH Ur Specific [place] Urine Protein Urine Glucose (UA) Urine Ketones Urine Blood Urine Nitrite Urine Bilirubin Urine Urobilinogen Ur Leukocyte Esterase Nasal Screen MRSA (PCR) Diagnostic Findings Chest X-Ray 05/26/22 19:24 XR chest 1V portable CLINICAL HISTORY: hypoxia, cough; ?pneumonia COMPARISON STUDY: Chest radiograph and chest CT February 28, 2022. FINDINGS: Patient is rotated. There is no pneumothorax. Small bilateral pleural effusions are present. Moderate interstitial thickening is noted. This represent pulmonary edema. Cardiomediastinal silhouette is stable. IMPRESSION: Moderate interstitial pulmonary edema with small bilateral pleural effusions. ACT 112: Negative or not required by law. Electronically signed by: Augustus Jeffrey M.D. 05/26/2022 8:00 PM KUB X-Ray 05/26/22 19:26 KUB CLINICAL HISTORY: fecal impaction/obstipation COMPARISON STUDY: CT of the abdomen and pelvis May 25, 2022. FINDINGS: Chronic deformity of the right hip is noted. There is severe left hip osteoarthritis. Large amount of stool within the rectum is noted. Multiple loops of distended small large bowel are noted. These are similar to prior exam. IMPRESSION: 1. Large amount of stool within the rectum. 2. No significant change in small and large bowel dilatation. ACT 112: Negative or not required by law. Electronically signed by: Augustus Jeffrey M.D. 05/26/2022 8:12 PM EKG - sinus tach, low voltage, ST changes anteriorly, ST changes inferiorly PG Care Time/CCT Total # of Minutes Spent Total Time Spent with Patient: Total time spent is greater than 50% in coordination of care (as documented) at patient's floor/unit and/or counseling patient: Coding Level of Care Code None Diagnoses Stercoral colitis K52.89 Fecal impaction K56.41 Colon distention K63.89 Hypoxia R09.02 Quadriplegic cerebral palsy G80.8 Hypertension I10 Diabetes E11.9 Seizure disorder G40.909 DVT prophylaxis Z29.9 Hypomagnesemia E83.42 Sinus tachycardia R00.0
[2022-05-27 06:11] LABS: Basophils # (auto) 0.03 K/uL (0-0.2); Basophils % (auto) 0.3 %; Eosinophils # (auto) 0.02 K/uL (0-0.50); Eosinophils % (auto) 0.2 %; Hematocrit (blood only) 35.6 % (34.1-44.9); Hemoglobin 12.5 g/dl (12.0-16.0); Immature Granulocytes # (auto) 0.05 K/uL (0.00-0.02); Immature Granulocytes % (auto) 0.5 %; Lymphocytes # (auto) 1.17 K/uL (1.2-3.4); Lymphocytes % (auto) 11.6 %; Mean Corpuscular Hemoglobin 34.4 pg (25.0-34.0); Mean Corpuscular Hgb Conc 35.1 g/dL (32.0-36.0); Mean Corpuscular Volume 98.1 fL (80.0-100.0); Mean Platelet Volume 10.3 fL (9.4-12.3); Monocytes # (auto) 0.79 K/uL (0.24-0.82); Monocytes % (auto) 7.8 %; Neutrophils # (auto) 8.02 K/uL (1.4-6.5); Neutrophils % (auto) 79.6 %; Platelet Count 212 K/uL (130-400); RDW Standard Deviation 46.1 fL (36.4-46.3); Red Blood Count 3.63 M/uL (3.93-5.22); White Blood Count 10.08 K/ul (4.8-10.8)
[2022-05-27 06:45] LABS: BUN Creatinine Ratio 34.1 (10-20); Calcium 7.8 mg/dl (8.5-10.1); Creatinine Clr Calc Pharmacy 90.4 ml/min; Est GFR (African American) 120.5 ml/min; Est GFR (Non-African American) 103.9 ml/min; Magnesium 1.9 mg/dl (1.7-2.4); Potassium 3.6 mmol/L (3.5-5.1)
--- NOTE | 2022-05-27 06:55 | XRay Report ---
XR chest 1V portable CLINICAL HISTORY: Pulmonary edema. COMPARISON STUDY: Chest CT February 28, 2022. Chest radiograph May 26, 2022. FINDINGS: There is no pneumothorax. Small bilateral pleural effusions have improved. Pulmonary edema is noted. This has moderately improved since prior exam. Cardiomediastinal silhouette is stable. Sofia ent is rotated. No consolidation to suggest pneumonia. IMPRESSION: Interval improvement in pulmonary edema and small bilateral pleural effusions. ACT 112: Negative or not required by law. Electronically signed by: Augustus Jeffrey M.D. 05/27/2022 6:53 AM
[2022-05-27] MEDS: SODIUM CHLOR 7% 4 ML NEB NEB SCH ×2 (07:13→19:43)
[2022-05-27] MEDS ORDERED: FUROSEMIDE INJ 20 MG/2 ML VIAL IV ONE ×2 (08:50→17:59)
[2022-05-27] MEDS: FAMOTIDINE 20 MG in SYRINGE 3 ML IV SCH ×2 (09:44→21:05)
[2022-05-27] MEDS: HEPARIN SOD 5,000 UNIT/0.5 ML VIAL SQ SCH ×2 (09:45→21:05)
[2022-05-27] MEDS: diazePAM 5 MG TABLET PO SCH ×3 (11:06→19:16)
[2022-05-27] MEDS: BACLOFEN 20 MG TAB PO SCH ×4 (11:06→19:16)
[2022-05-27] MEDS: POLYETHYLENE (MIRALAX) 17 GM PACK PO SCH (11:06)
--- NOTE | 2022-05-27 11:16 | Hospitalist Progress Note ---
Date of Service May 27, 2022 Assessment & Plan (1) Acute respiratory failure with hypoxia: Plan: 2nd to #2 can't rule out aspiration pneumonitis but less likely as CXR today is much improved s/p multiple doses of lasix (also, normal wbc, no fever, etc) cont diuresis cont CPAP alternating with NC O2 hopefully can transition to NC O2 today (2) Acute systolic (congestive) heart failure: Plan: EF 25-30% on today's echo. numerous wall motion abnormalities c/w ischemic cardiomyopathy. has severe sinus tachycardia to the 140s. unable to take PO thus start lopressor 2.5mg IV q6h. lasix 20mg IV BID today. VERY POOR PROGNOSIS and VERY POOR CANDIDATE for diagnostic heart cath, etc. (3) Ischemic cardiomyopathy: Plan: as noted on today's echo see #2 above (4) Stercoral colitis: Plan: clinically improved numerous bowel movements this weekend s/p enema in the ER followed by dulcolax and miralax yesterday keep NPO due to #1 above (5) Fecal impaction: Plan: clinically improved (6) Colon distention: Plan: 2nd to #4/#5 improved abdominal exam today (7) Quadriplegic cerebral palsy: Plan: lives at [facility] patient is on chronic valium 5mg TID to avoid withdrawal and risk of seizures will start ativan 0.25mg IV BID to oscar id withdrawal (8) Hypertension: Plan: lopressor IV as above (9) Diabetes: Plan: takes metformin 500 once daily this is on hold check BSGs novolog if necessary (10) Seizure disorder: Plan: resume phenobarbital but give IV due to NPO status phenobarbital level wnl (11) DVT prophylaxis: Plan: heparin 5000 BID (12) Hypomagnesemia: Plan: replaced resolved (13) Sinus tachycardia: Plan: 2nd to #1, #2 lopressor in small doses Plan need to contact [facility] and any family/POA as patient's prognosis is poor/guarded Admission and Anticipated Discharge Date Admission Date: May 26, 2022 Subjective events of overnight noted code purple overnight for worsening acute respiratory failure ultimately leading to CPAP [id number] received lasix in addition to the dose I had given her early evening yesterday during my visit she was on CPAP nonverbal doesn't follow commands mild tachypnea noted but no distress Review of Systems Review of Systems: Unobtainable due to cognitive status Physical Exam Physical Exam: gen - dysmorphic in appearance, does not follow commands, nonverbal, tachypneic heart - tachy, s1 s2, no murmur lungs - decreased BS bases, crackles b/l, mild tachypnea, mild subcostal retractions abd - distension improved today, BS+, no apparent tenderness, no HSM ext - no edema, pulses 2+ b/l neuro - quadriplegia Results & Data Results & Data ([facility]) Vital Signs (Past 12 Hours) Vital Signs Temp Pulse Pulse Resp BP BP Pulse Ox 05/27/22 10:21 05/27/22 07:41 36.9 C 116 H 22 121/77 99 05/27/22 07:13 80 26 H 93 05/27/22 07:13 80 26 H 93 05/27/22 03:07 37.1 C 115 H 22 123/80 97 05/27/22 02:18 117 H 32 H 96 05/26/22 23:46 127 H O2 Del Method FiO2 05/27/22 10:21 CPAP 30 05/27/22 07:41 CPAP 05/27/22 07:13 30 05/27/22 07:13 CPAP 30 05/27/22 03:07 CPAP 30 05/27/22 02:18 30 05/26/22 23:46 Laboratory Results Laboratory Results - last 24 hr 05/26/22 05/26/22 05/26/22 12:20 12:20 12:20 WBC RBC Hgb Hct MCV MCH MCHC RDW Std Deviation RDW Coeff of Con Plt Count MPV Immature Gran % (Auto) Neut % (Auto) Lymph % (Auto) Hill % (Auto) Eos % (Auto) Baso % (Auto) Neut # (Auto) Lymph # (Auto) Hill # (Auto) Eos # (Auto) Baso # (Auto) Immature Gran # (Auto) Sodium Potassium Chloride Carbon Dioxide Anion Gap BUN Creatinine Est Cr Clr Drug Dosing Est GFR ( Amer) Est GFR (Non-Af Amer) BUN/Creatinine Ratio Glucose POC Glucose Calcium Magnesium 1.6 L TSH 2.533 Free T4 0.98 Phenobarbital 05/26/22 05/26/22 05/26/22 17:06 20:40 22:19 WBC RBC Hgb Hct MCV MCH MCHC RDW Std Deviation RDW Coeff of Con Plt Count MPV Immature Gran % (Auto) Neut % (Auto) Lymph % (Auto) Hill % (Auto) Eos % (Auto) Baso % (Auto) Neut # (Auto) Lymph # (Auto) Hill # (Auto) Eos # (Auto) Baso # (Auto) Immature Gran # (Auto) Sodium Potassium Chloride Carbon Dioxide Anion Gap BUN Creatinine Est Cr Clr Drug Dosing Est GFR ( Amer) Est GFR (Non-Af Amer) BUN/Creatinine Ratio Glucose POC Glucose 128 H 128 H 217 H Calcium Magnesium TSH Free T4 Phenobarbital 05/27/22 05/27/22 05/27/22 05:44 05:44 05:44 WBC 10.08 RBC 3.63 L Hgb 12.5 Hct 35.6 MCV 98.1 MCH 34.4 H MCHC 35.1 RDW Std Deviation 46.1 RDW Coeff of Con 13.0 Plt Count 212 MPV 10.3 Immature Gran % (Auto) 0.5 Neut % (Auto) 79.6 Lymph % (Auto) 11.6 Hill % (Auto) 7.8 Eos % (Auto) 0.2 Baso % (Auto) 0.3 Neut # (Auto) 8.02 H Lymph # (Auto) 1.17 L Hill # (Auto) 0.79 Eos # (Auto) 0.02 Baso # (Auto) 0.03 Immature Gran # (Auto) 0.05 H Sodium 137 Potassium 3.6 Chloride 106 Carbon Dioxide 22 Anion Gap 9 BUN 14 Creatinine 0.41 L Est Cr Clr Drug Dosing 90.4 Est GFR ( Amer) 120.5 Est GFR (Non-Af Amer) 103.9 BUN/Creatinine Ratio 34.1 H Glucose 119 H POC Glucose Calcium 7.8 L Magnesium 1.9 TSH Free T4 Phenobarbital 18.6 Diagnostic Findings Chest X-Ray 05/26/22 19:24 XR chest 1V portable CLINICAL HISTORY: hypoxia, cough; ?pneumonia COMPARISON STUDY: Chest radiograph and chest CT February 28, 2022. FINDINGS: Patient is rotated. There is no pneumothorax. Small bilateral pleural effusions are present. Moderate interstitial thickening is noted. This represent pulmonary edema. Cardiomediastinal silhouette is stable. IMPRESSION: Moderate interstitial pulmonary edema with small bilateral pleural effusions. ACT 112: Negative or not required by law. Electronically signed by: Augustus Jeffrey M.D. 05/26/2022 8:00 PM KUB X-Ray 05/26/22 19:26 KUB CLINICAL HISTORY: fecal impaction/obstipation COMPARISON STUDY: CT of the abdomen and pelvis May 25, 2022. FINDINGS: Chronic deformity of the right hip is noted. There is severe left hip osteoarthritis. Large amount of stool within the rectum is noted. Multiple loops of distended small large bowel are noted. These are similar to prior exam. IMPRESSION: 1. Large amount of stool within the rectum. 2. No significant change in small and large bowel dilatation. ACT 112: Negative or not required by law. Electronically signed by: Augustus Jeffrey M.D. 05/26/2022 8:12 PM Chest X-Ray 05/27/22 07:15 XR chest 1V portable CLINICAL HISTORY: Pulmonary edema. COMPARISON STUDY: Chest CT February 28, 2022. Chest radiograph May 26, 2022. FINDINGS: There is no pneumothorax. Small bilateral pleural effusions have improved. Pulmonary edema is noted. This has moderately improved since prior exam. Cardiomediastinal silhouette is stable. Patient is rotated. No consolidation to suggest pneumonia. IMPRESSION: Interval improvement in pulmonary edema and small bilateral pleural effusions. ACT 112: Negative or not required by law. Electronically signed by: Augustus Jeffrey M.D. 05/27/2022 6:53 AM PG Care Time/CCT Total # of Minutes Spent Total Time Spent with Patient: Total time spent is greater than 50% in coordination of care (as documented) at patient's floor/unit and/or counseling patient: Coding Level of Care Code 28833 Subseq Hosp Care Lvl 3 Diagnoses Acute respiratory failure with hypoxia J96.01 Acute systolic (congestive) heart failure I50.21 Ischemic cardiomyopathy I25.5 Stercoral colitis K52.89 Fecal impaction K56.41 Colon distention K63.89 Quadriplegic cerebral palsy G80.8 Hypertension I10 Diabetes E11.9 Seizure disorder G40.909 DVT prophylaxis Z29.9 Hypomagnesemia E83.42 Sinus tachycardia R00.0
[2022-05-27] MEDS ORDERED: LORazepam 0.25 MG in SYRINGE 0 ML IV ONE ×2 (11:20→22:45)
--- NOTE | 2022-05-27 17:57 | XCELERA ---
[id number]
[2022-05-27] MEDS: PHENobarbitaL 30 MG TAB PO SCH (19:17)
[2022-05-27] MEDS: LORazepam 0.25 MG in SYRINGE 0 ML IV SCH (21:05)
[2022-05-27] MEDS: METOPROLOL TARTRATE 1 MG/ML VIAL IV SCH (21:28)
[2022-05-27] MEDS ORDERED: LEVALBUTEROL 0.31MG/3 ML VIAL NEB STA (23:44)
[2022-05-28] MEDS ORDERED: LEVALBUTEROL HCL 0.63 MG/3 ML NEB ONE (00:55)
[2022-05-28] MEDS: METOPROLOL TARTRATE 1 MG/ML VIAL IV SCH ×4 (01:13→18:25)
--- NOTE | 2022-05-28 06:04 | Electrocardiogram Report ---
Test Reason : Blood Pressure : / mmHG Vent. 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
[2022-05-28 06:46] LABS: Basophils # (auto) 0.03 K/uL (0-0.2); Basophils % (auto) 0.2 %; Hematocrit (blood only) 36.9 % (34.1-44.9); Hemoglobin 12.6 g/dl (12.0-16.0); Immature Granulocytes # (auto) 0.11 K/uL (0.00-0.02); Immature Granulocytes % (auto) 0.7 %; Lymphocytes # (auto) 0.95 K/uL (1.2-3.4); Lymphocytes % (auto) 6.3 %; Mean Corpuscular Hemoglobin 34.1 pg (25.0-34.0); Mean Corpuscular Hgb Conc 34.1 g/dL (32.0-36.0); Mean Platelet Volume 11.2 fL (9.4-12.3); Monocytes # (auto) 0.99 K/uL (0.24-0.82); Monocytes % (auto) 6.6 %; Neutrophils # (auto) 13.02 K/uL (1.4-6.5); Neutrophils % (auto) 86.2 %; Platelet Count 207 K/uL (130-400); RDW Coefficient of Variation 13.5 % (11.5-14.5); RDW Standard Deviation 49.1 fL (36.4-46.3); Red Blood Count 3.69 M/uL (3.93-5.22)
[2022-05-28 07:21] LABS: BUN Creatinine Ratio 33.8 (10-20); Calcium 8.3 mg/dl (8.5-10.1); Est GFR (African American) 103.5 ml/min; Est GFR (Non-African American) 89.3 ml/min; Magnesium 1.8 mg/dl (1.7-2.4); Potassium 3.8 mmol/L (3.5-5.1)
[2022-05-28] MEDS: SODIUM CHLOR 7% 4 ML NEB NEB SCH ×2 (07:34→19:37)
[2022-05-28 08:07] LABS: Troponin I High Sensitivity 1141.2 pg/ml (0-14)
[2022-05-28] MEDS ORDERED: FUROSEMIDE INJ 20 MG/2 ML VIAL IV ONE (08:15)
--- NOTE | 2022-05-28 08:25 | XRay Report ---
XR chest 1V portable HISTORY: tachypnea COMPARISON: Chest 05/27/2022. FINDINGS: No pneumothorax. The cardiac silhouette remains top normal in size. There are calcification s within the aortic knob. Slight progression of the interstitial/vascular thickening and right perihi lar hazy airspace opacities. This favors a progressive asymmetric pulmonary edema. Suspect trace bila teral pleural effusions. IMPRESSION: Slight progression of the mild asymmetric pulmonary edema. ACT 112: Negative or not required by law. Electronically signed by: Armin Marmolejo M.D. 05/28/2022 8:24 AM
--- NOTE | 2022-05-28 08:57 | Electrocardiogram Report ---
Test Reason : Blood Pressure : / mmHG Vent. 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
[2022-05-28] MEDS: HEPARIN SOD 5,000 UNIT/0.5 ML VIAL SQ SCH ×2 (09:18→21:22)
[2022-05-28] MEDS: PHENobarbital sodium 130 MG/ML VIAL IV SCH (09:34)
[2022-05-28] MEDS: LORazepam 0.25 MG in SYRINGE 0 ML IV SCH ×2 (09:35→21:30)
[2022-05-28] MEDS: FAMOTIDINE 20 MG in SYRINGE 3 ML IV SCH ×2 (09:36→21:26)
[2022-05-28] MEDS: diazePAM 5 MG TABLET PO SCH ×2 (11:57→15:23)
[2022-05-28] MEDS: BACLOFEN 20 MG TAB PO SCH ×3 (11:57→18:23)
[2022-05-28] MEDS: POLYETHYLENE (MIRALAX) 17 GM PACK PO SCH (11:57)
--- NOTE | 2022-05-28 14:06 | Hospitalist Progress Note ---
Date of Service May 28, 2022 Assessment & Plan (1) Acute respiratory failure with hypoxia: Plan: 2nd to #2 can't rule out aspiration pneumonitis -- cxr today with right perihilar infiltrates, and she had significantly worsened respiratory status overnight I checked a CRP today - markedly elevated at 15.7 - could be due to recent stercoral colitis, but certainly could be from developing pneumonia cont diuresis cont CPAP alternating with NC O2 adding antibiotics (see below) (2) Acute systolic (congestive) heart failure: Plan: EF 25-30% on echo. numerous wall motion abnormalities c/w ischemic cardiomyopathy. also with akinetic region which is highly suggestive of prior [place]. has severe sinus tachycardia to the 140s. unable to take PO thus started lopressor 2.5mg IV q6h. lasix 20mg IV x 1 again this am; follow UOP response. VERY POOR PROGNOSIS and VERY POOR CANDIDATE for diagnostic heart cath, etc. (3) Aspiration pneumonia: Plan: suspected start rocephin 1gm IV daily start flagyl 500mg IV q8h NPO if able to wean CPAP to NC will have speech therapy see tomorrow (4) Elevated troponin: Plan: at minimum is due to myocardial demand ischemia in setting of #1/#2/#3 above given her echo findings I cannot rule out an ACS event she is nonverbal and a quadriplegic - likely to not express or show symptoms further, her EKG shows anterior ST changes supportive care defer on heparin drip if she improves through the night, and if she passes swallow eval, can add aspirin defer on rectal aspirin due to recent stercoral colitis (5) Ischemic cardiomyopathy: Plan: as noted on echo - see above (6) Stercoral colitis: Plan: clinically improved numerous bowel movements this weekend s/p enema in the ER followed by dulcolax and miralax etc abdominal exam benign keep NPO for now (7) Fecal impaction: Plan: clinically improved/resolved (8) Colon distention: Plan: 2nd to #6 - resolved improved abdominal exam (9) Quadriplegic cerebral palsy: Plan: lives at [facility] patient is on chronic valium 5mg TID to avoid withdrawal and risk of seizures cont ativan 0.25mg IV BID valium on hold due to NPO status (10) Hypertension: Plan: lopressor IV (11) Diabetes: Plan: takes metformin 500 once daily this is on hold BSGs are controlled novolog if necessary (12) Seizure disorder: Plan: resumed phenobarbital but giving IV due to NPO status phenobarbital level wnl (13) DVT prophylaxis: Plan: heparin 5000 BID (14) Hypomagnesemia: Plan: replaced resolved (15) Sinus tachycardia: Plan: 2nd to systolic CHF lopressor in small doses (16) Counseling regarding goals of care: Plan: Met with pt's sister Caitie along with the 2 representatives from [facility]. LENGTHY (30-40 minute) discussion to address code status, current problems, possible Rx options, etc. Ene does not have a formal POA but Caitie was agreeable to making decisions on her sister's behalf. Explained that she is a very poor heart cath candidate -- too sick to pursue such, and even if a candidate - if severe CAD is found - she would be an even worse CABG candidate. Caitie and the reps from [facility] all agreed that aggressive measures are not in Ene's best interest. Discussed my concern that Ene may have aspirated in the last 1-2 days and may be developing pneumonia (hence the worsening respiratory status overnight despite aggressive diuresis). Caitie agreed that DNR/DNI status is best for Ene. Caitie mentioned that some of her siblings (Ene & Caitie are from a family of 12 kids!) are in agreement with no aggressive measures. We all collectively agreed that we would NOT escalate care beyond CPAP. I explained that if she improves enough to come off CPAP we can ask speech therapy to check swallow function in am tomorrow. If respiratory status worsens further we would shift to comfort care status/pathway. Everyone was in agreement with the above plan of care. total time on all care activities including goals of care meeting-- 70 min Admission and Anticipated Discharge Date Admission Date: May 26, 2022 Subjective once again overnight the patient had to be placed back on CPAP for worsening respiratory distress (tachypnea, retractions, desaturation, etc) during my rounds she was still on the CPAP tachypnea present; retractions resolved fortunately she was nonverbal, but shook her head a little to pointed questions representatives from [facility] were present, and Caitie (pt's sister) also present [facility] -- business applications manager Suha Flynn, ; [place] - nurse - [phone] following a bedside visit I met with [place] Borden, and pt's sister Caitie in the lounge discussed newly diagnosed ischemic cardiomyopathy, acute CHF, respiratory failure, concern for aspiration and pneumonia, overall care plan, code status, etc Shanda Sampson reports that she uses a lot of head nods to voice her needs and to communicate; she does say a few words they had not noted any obvious dysphagia - however, she is on pureed diet they had not noted any recent dyspnea or respiratory issues telemetry overnight - ongoing tachycardia Review of Systems Review of Systems: Unobtainable due to cognitive status Physical Exam Physical Exam: gen - dysmorphic in appearance, does not follow commands, nonverbal, tachypneic, CPAP mask in place neck - no JVD today heart - tachy, s1 s2, no murmur lungs - decreased BS bases worse on right; minimal crackles b/l, mild tachypnea, subcostal retractions improved this am abd - soft, NT, ND, BS+ ext - no edema, pulses 2+ b/l neuro - quadriplegia Results & Data Results & Data ([facility]) Vital Signs (Past 12 Hours) Vital Signs Temp Pulse Pulse Resp BP BP BP 05/28/22 12:00 37.2 C 105 H 28 H 109/69 05/28/22 12:00 05/28/22 11:33 107 H 28 H 05/28/22 08:00 128 H 05/28/22 07:35 114 H 30 H 05/28/22 07:35 115 H 29 H 05/28/22 07:25 37.1 C 110 H 36 H 113/71 05/28/22 06:17 124 H 124/79 05/28/22 06:16 124 H 124/79 05/28/22 03:39 115 H 40 H 05/28/22 02:58 36.8 C 116 H 38 H 140/84 Pulse Ox O2 Del Method O2 Flow Rate FiO2 05/28/22 12:00 96 BiPAP 30 05/28/22 12:00 BiPAP 10 5 05/28/22 11:33 97 30 05/28/22 08:00 05/28/22 07:35 94 30 05/28/22 07:35 94 BiPAP 05/28/22 07:25 93 BiPAP 30 05/28/22 06:17 05/28/22 06:16 05/28/22 03:39 94 30 05/28/22 02:58 93 BiPAP Laboratory Results Laboratory Results - last 24 hr 05/28/22 05/28/22 05/28/22 05:46 05:46 06:12 WBC 15.10 H RBC 3.69 L Hgb 12.6 Hct 36.9 MCV 100.0 MCH 34.1 H MCHC 34.1 RDW Std Deviation 49.1 H RDW Coeff of Con 13.5 Plt Count 207 MPV 11.2 Immature Gran % (Auto) 0.7 Neut % (Auto) 86.2 Lymph % (Auto) 6.3 [place] % (Auto) 6.6 Eos % (Auto) 0.0 Baso % (Auto) 0.2 Neut # (Auto) 13.02 H Lymph # (Auto) 0.95 L [place] # (Auto) 0.99 H Eos # (Auto) 0.00 Baso # (Auto) 0.03 Immature Gran # (Auto) 0.11 H Sodium 142 Potassium 3.8 Chloride 105 Carbon Dioxide 22 Anion Gap 15 H BUN 22 Creatinine 0.65 Est Cr Clr Drug Dosing 57.0 Est GFR ( Amer) 103.5 Est GFR (Non-Af Amer) 89.3 BUN/Creatinine Ratio 33.8 H Glucose 120 H POC Glucose 130 H Calcium 8.3 L Magnesium 1.8 Troponin I High Sens 1141.2 H* C-Reactive Protein 05/28/22 05/28/22 05/28/22 11:52 17:30 17:30 WBC RBC Hgb Hct MCV MCH MCHC RDW Std Deviation RDW Coeff of Con Plt Count MPV Immature Gran % (Auto) Neut % (Auto) Lymph % (Auto) [place] % (Auto) Eos % (Auto) Baso % (Auto) Neut # (Auto) Lymph # (Auto) [place] # (Auto) Eos # (Auto) Baso # (Auto) Immature Gran # (Auto) Sodium Potassium Chloride Carbon Dioxide Anion Gap BUN Creatinine 0.52 L Est Cr Clr Drug Dosing 71.3 Est GFR ( Amer) 111.4 Est GFR (Non-Af Amer) 96.1 BUN/Creatinine Ratio Glucose POC Glucose 104 H Calcium Magnesium Troponin I High Sens 995.8 H* C-Reactive Protein 15.72 H 05/28/22 05/29/22 05/29/22 18:04 00:52 06:03 WBC RBC Hgb Hct MCV MCH MCHC RDW Std Deviation RDW Coeff of Con Plt Count MPV Immature Gran % (Auto) Neut % (Auto) Lymph % (Auto) [place] % (Auto) Eos % (Auto) Baso % (Auto) Neut # (Auto) Lymph # (Auto) [place] # (Auto) Eos # (Auto) Baso # (Auto) Immature Gran # (Auto) Sodium Potassium Chloride Carbon Dioxide Anion Gap BUN Creatinine Est Cr Clr Drug Dosing Est GFR ( Amer) Est GFR (Non-Af Amer) BUN/Creatinine Ratio Glucose POC Glucose 90 95 100 H Calcium Magnesium Troponin I High Sens C-Reactive Protein Diagnostic Findings Chest X-Ray 05/27/22 23:54 XR chest 1V portable HISTORY: tachypnea COMPARISON: Chest 05/27/2022. FINDINGS: No pneumothorax. The cardiac silhouette remains top normal in size. There are calcifications within the aortic knob. Slight progression of the interstitial/vascular thickening and right perihilar hazy airspace opacities. This favors a progressive asymmetric pulmonary edema. Suspect trace bilateral pleural effusions. IMPRESSION: Slight progression of the mild asymmetric pulmonary edema. ACT 112: Negative or not required by law. Electronically signed by: Armin Marmolejo M.D. 05/28/2022 8:24 AM PG Care Time/CCT Total # of Minutes Spent Total Time Spent with Patient: Total time spent is greater than 50% in coordination of care (as documented) at patient's floor/unit and/or counseling patient: Prolonged Care Time Prolonged Care Time: Yes Total Prolonged Care Time: 70 Coding Level of Care Code 44058 Subseq Hosp Care Lvl 3 (25 - SIGNIFICANT, SEPARATELY IDENTIFIABLE ) Diagnoses Acute respiratory failure with hypoxia J96.01 Acute systolic (congestive) heart failure I50.21 Aspiration pneumonia J69.0 Elevated troponin R77.8 Ischemic cardiomyopathy I25.5 Stercoral colitis K52.89 Fecal impaction K56.41 Colon distention K63.89 Quadriplegic cerebral palsy G80.8 Hypertension I10 Diabetes E11.9 Seizure disorder G40.909 DVT prophylaxis Z29.9 Hypomagnesemia E83.42 Sinus tachycardia R00.0 Counseling regarding goals of care Z71.89 Additional Codes Prolonged Care Time - Prolonged Care Time: Yes ([id number])
[2022-05-28] MEDS: cefTRIAXone SODIUM 1,000 MG in DEXTROSE 5% AD-VAN 50 ML IV SCH (15:42)
[2022-05-28] MEDS: metroNIDAZOLE 500 MG/100 ML BAG IV SCH (15:42)
[2022-05-28] MEDS ORDERED: ARTIFICIAL TEARS OP PRN (17:03)
[2022-05-28 18:15] LABS: C Reactive Protein 15.72 mg/dl (0-0.5); Creatinine Clr Calc Pharmacy 71.3 ml/min; Est GFR (African American) 111.4 ml/min; Est GFR (Non-African American) 96.1 ml/min
[2022-05-29] MEDS: METOPROLOL TARTRATE 1 MG/ML VIAL IV SCH ×4 (00:39→17:59)
[2022-05-29] MEDS: metroNIDAZOLE 500 MG/100 ML BAG IV SCH ×3 (00:39→16:19)
[2022-05-29] MEDS: SODIUM CHLOR 7% 4 ML NEB NEB SCH (07:21)
[2022-05-29 07:51] LABS: Hematocrit (blood only) 35.4 % (34.1-44.9); Hemoglobin 11.9 g/dl (12.0-16.0); Mean Corpuscular Hemoglobin 33.9 pg (25.0-34.0); Mean Corpuscular Hgb Conc 33.6 g/dL (32.0-36.0); Mean Corpuscular Volume 100.9 fL (80.0-100.0); Mean Platelet Volume 10.8 fL (9.4-12.3); Platelet Count 188 K/uL (130-400); RDW Coefficient of Variation 13.8 % (11.5-14.5); RDW Standard Deviation 51.1 fL (36.4-46.3); Red Blood Count 3.51 M/uL (3.93-5.22); White Blood Count 9.25 K/ul (4.8-10.8)
[2022-05-29 08:13] LABS: BUN Creatinine Ratio 55.9 (10-20); C Reactive Protein 15.38 mg/dl (0-0.5); Calcium 8.4 mg/dl (8.5-10.1); Creatinine Clr Calc Pharmacy 62.8 ml/min; Est GFR (African American) 106.9 ml/min; Est GFR (Non-African American) 92.2 ml/min; Magnesium 1.8 mg/dl (1.7-2.4); Potassium 3.3 mmol/L (3.5-5.1)
[2022-05-29] MEDS: HEPARIN SOD 5,000 UNIT/0.5 ML VIAL SQ SCH ×2 (08:22→21:03)
[2022-05-29] MEDS: PHENobarbital sodium 130 MG/ML VIAL IV SCH (08:53)
[2022-05-29] MEDS: LORazepam 0.25 MG in SYRINGE 0 ML IV SCH ×2 (08:54→21:02)
[2022-05-29] MEDS: FAMOTIDINE 20 MG in SYRINGE 3 ML IV SCH ×2 (08:55→21:03)
[2022-05-29] MEDS: POTASSIUM CHLORIDE / WTR 10 MEQ/100 ML PLCT IV SCH ×2 (10:06→11:46)
[2022-05-29] MEDS: cefTRIAXone SODIUM 1,000 MG in DEXTROSE 5% AD-VAN 50 ML IV SCH (15:26)
--- NOTE | 2022-05-29 16:42 | Hospitalist Progress Note ---
Date of Service May 29, 2022 Assessment & Plan (1) Acute respiratory failure with hypoxia: Plan: Secondary to acute HFrEF Also can't rule out aspiration pneumonitis -- cxr with right perihilar infiltrates, and she had significantly worsened respiratory status CRP markedly elevated at 15.7 and remains elevated- could be due to recent stercoral colitis, but certainly could be from developing pneumonia Chest x-ray with interstitial/vascular thickening and right perihilar hazy airspace opacities favoring progressive asymmetric pulmonary edema. Also with trace bilateral pleural effusions With metabolic acidosis development on 05/29-was on BiPAP rather than CPAP through the night. Will not subject her to an ABG due to sister's wishes to promote comfort, but suspect she was over ventilated. Discussed with respiratory therapist who replaced BiPAP with CPAP in the room in case needed through the night. -Improved now after being on CPAP, receiving 1 dose of IV Lasix, and beginning treatment with antibiotics for aspiration pneumonitis -Continue supplemental O2 to keep pulse ox greater than 90% -Can discontinue hypertonic saline and chest PT -Hold off on any further diuretics -Continue antibiotics for pneumonia -Follow BMP in the morning (2) Acute systolic (congestive) heart failure: Plan: EF 25-30% on echo. numerous wall motion abnormalities c/w ischemic cardiomyopathy. also with akinetic region which is highly suggestive of prior [place]. has severe sinus tachycardia to the 140s which is now improved to the 110s-120s. Was started on lopressor 2.5mg IV q6h due to n.p.o. status-eventually should convert to Toprol-XL Diuresed with Lasix 20 Mg IV x1 on 05/28 Now with hypernatremia, hypokalemia Replace potassium chloride IV 20 mill equivalents Hold off on further diuresis Home lisinopril is on hold due to n.p.o. status-restart this versus Entresto when able to tolerate p.o.-likely tomorrow VERY POOR PROGNOSIS and VERY POOR CANDIDATE for diagnostic heart cath, etc. (3) Aspiration pneumonia: Plan: suspected Continue IV Rocephin and metronidazole Appreciate speech evaluation after weaned off CPAP on 05/29-okay for pured diet and thin liquids Aspiration precautions (4) Elevated troponin: Plan: Myocardial infarction type 2 in setting of acute hypoxic respiratory failure and acute systolic CHF given her echo findings I cannot rule out an ACS event she is nonverbal and a quadriplegic - likely to not express or show symptoms further, her EKG shows anterior ST changes supportive care defer on heparin drip -Will now add daily aspirin for tomorrow (5) Ischemic cardiomyopathy: Plan: as noted on echo - see above (6) Stercoral colitis: Plan: clinically improved numerous bowel movements this weekend s/p enema in the ER followed by dulcolax and miralax etc abdominal exam benign Advance diet to pured (7) Colon distention: Plan: Secondary to stercoral colitis-now resolved clinically (8) Quadriplegic cerebral palsy: Plan: lives at [facility] patient is on chronic valium 5mg TID to avoid withdrawal and risk of seizures cont ativan 0.25mg IV BID valium on hold due to NPO status Hold baclofen (9) Hypertension: Plan: lopressor IV Holding lisinopril as above (10) Diabetes: Plan: takes metformin 500 once daily this is on hold BSGs are controlled novolog if necessary (11) Seizure disorder: Plan: Continue IV phenobarbital until reliably taking p.o. phenobarbital level wnl Giving IV Ativan scheduled rather than p.o. Valium (12) DVT prophylaxis: Plan: heparin 5000 BID (13) Sinus tachycardia: Plan: 2nd to systolic CHF, improving lopressor in small doses (14) Counseling regarding goals of care: Plan: Previous hospitalist met with pt's sister Caitie along with the 2 representatives from [facility]. LENGTHY discussion to address code status, current problems, possible Rx options, etc. Ene does not have a formal POA but Caitie was agreeable to making decisions on her sister's behalf. Explained that she is a very poor heart cath candidate -- too sick to pursue such, and even if a candidate - if severe CAD is found - she would be an even worse CABG candidate. Caitie and the reps from [facility] all agreed that aggressive measures are not in Ene's best interest. Discussed concern that Ene may have aspirated and may be developing pneumonia (hence the worsening respiratory status overnight despite aggressive diuresis). Caitie agreed that DNR/DNI status is best for Ene. Caitie mentioned that some of her siblings (Ene & Caitie are from a family of 12 kids!) are in agreement with no aggressive measures. All collectively agreed that we would NOT escalate care beyond CPAP. If respiratory status worsens further we would shift to comfort care status/pathway. Everyone was in agreement with the above plan of care and this was reconfirmed with her sister on the phone on 05/29 by myself (15) Conjunctivitis: Plan: Add Ocuflox eyedrops to left eye Continue Restasis for dry eyes Plan Disposition-continued stay in PCU, guarded prognosis Eventually back to skilled nursing with 24/7 caregivers. Will likely need continuous oxygen. Admission and Anticipated Discharge Date Admission Date: May 26, 2022 Subjective Patient was on BiPAP through the night but was weaned down to 4 L nasal cannula this morning which she remained on all day. She is nonverbal with me. I did discuss her care with her caregiver at the bedside as well as her sister on speaker phone. Her sister reports that the patient was able to tell her earlier in the day that she was not having any pain. She is eating a little bit and was seen by speech therapy and cleared for pured diet and thin liquids. The caregiver does notice that she does cough somewhat with ice cream after it melts. Patient is moving her bowels. Nursing noted that she has discharge and redness coming from the left eye. Telemetry is sinus tachycardia with rates in the 110s to 120s Review of Systems Review of Systems: Unobtainable due to cognitive status Physical Exam Physical Exam: gen - dysmorphic in appearance, does not follow commands, nonverbal, tachypneic, nasal cannula in place HEENT-left eye with erythema of conjunctiva, mild erythema of lower lid, yellow crusted exudate on lashes heart - tachy, s1 s2, no murmur lungs - decreased BS bases worse on right; minimal crackles b/l, no tachypnea abd - soft, NT, ND, BS+ ext - no edema neuro - quadriplegia Results & Data Results & Data ([facility]) Vital Signs (Past 12 Hours) Vital Signs Temp Pulse Pulse Resp BP BP Pulse Ox 05/29/22 15:59 99 H 05/29/22 15:54 36.9 C 96 H 19 102/66 98 05/29/22 08:00 05/29/22 13:06 110 H 05/29/22 11:29 36.8 C 102 H 19 94/54 L 99 05/29/22 07:56 36.8 C 115 H 20 127/85 97 05/29/22 07:40 114 H 05/29/22 07:21 115 H 25 H 97 05/29/22 05:45 120 H O2 Del Method O2 Flow Rate FiO2 05/29/22 15:59 05/29/22 15:54 Nasal Cannula 4.0 05/29/22 08:00 Nasal Cannula 4 05/29/22 13:06 05/29/22 11:29 Nasal Cannula 4.0 05/29/22 07:56 BiPAP 05/29/22 07:40 05/29/22 07:21 30 05/29/22 05:45 Laboratory Results 05/29/22 05/29/22 05/29/22 Range/Units 12:17 07:10 07:10 WBC 9.25 (4.8-10.8) K/ul RBC 3.51 L (3.93-5.22) M/uL Hgb 11.9 L (12.0-16.0) g/dl Hct 35.4 (34.1-44.9) % MCV 100.9 H (80.0-100.0) fL MCH 33.9 (25.0-34.0) pg MCHC 33.6 (32.0-36.0) g/dL RDW Std Deviation 51.1 H (36.4-46.3) fL RDW Coeff of Con 13.8 (11.5-14.5) % Plt Count 188 (130-400) K/uL MPV 10.8 (9.4-12.3) fL Sodium 146 H (136-145) mmol/L Potassium 3.3 L (3.5-5.1) mmol/L Chloride 109 H (98-107) mmol/L Carbon Dioxide 14 L (21-32) mmol/L Anion Gap 23 H (3-11) BUN 33 H (6-23) mg/dl Creatinine 0.59 L (0.6-1.2) mg/dl Est Cr Clr Drug Dosing 62.8 ml/min Est GFR ( Amer) 106.9 ml/min Est GFR (Non-Af Amer) 92.2 ml/min BUN/Creatinine Ratio 55.9 H (10-20) Glucose 94 (70-99(Fasting)) mg/dl POC Glucose 92 (70-99) mg/dl Calcium 8.4 L (8.5-10.1) mg/dl Magnesium 1.8 (1.7-2.4) mg/dl C-Reactive Protein 15.38 H (0-0.5) mg/dl 05/29/22 05/29/22 Range/Units 06:03 00:52 WBC (4.8-10.8) K/ul RBC (3.93-5.22) M/uL Hgb (12.0-16.0) g/dl Hct (34.1-44.9) % MCV (80.0-100.0) fL MCH (25.0-34.0) pg MCHC (32.0-36.0) g/dL RDW Std Deviation (36.4-46.3) fL RDW Coeff of Con (11.5-14.5) % Plt Count (130-400) K/uL MPV (9.4-12.3) fL Sodium (136-145) mmol/L Potassium (3.5-5.1) mmol/L Chloride (98-107) mmol/L Carbon Dioxide (21-32) mmol/L Anion Gap (3-11) BUN (6-23) mg/dl Creatinine (0.6-1.2) mg/dl Est Cr Clr Drug Dosing ml/min Est GFR ( Amer) ml/min Est GFR (Non-Af Amer) ml/min BUN/Creatinine Ratio (10-20) Glucose (70-99(Fasting)) mg/dl POC Glucose 100 H 95 (70-99) mg/dl Calcium (8.5-10.1) mg/dl Magnesium (1.7-2.4) mg/dl C-Reactive Protein (0-0.5) mg/dl PG Care Time/CCT Total # of Minutes Spent Total Time Spent with Patient: Total time spent is greater than 50% in coordination of care (as documented) at patient's floor/unit and/or counseling patient: Coding Level of Care Code 66166 Subseq Hosp Care Lvl 3 Diagnoses Acute respiratory failure with hypoxia J96.01 Acute systolic (congestive) heart failure I50.21 Aspiration pneumonia J69.0 Elevated troponin R77.8 Ischemic cardiomyopathy I25.5 Stercoral colitis K52.89 Colon distention K63.89 Quadriplegic cerebral palsy G80.8 Hypertension I10 Diabetes E11.9 Seizure disorder G40.909 DVT prophylaxis Z29.9 Sinus tachycardia R00.0 Counseling regarding goals of care Z71.89 Conjunctivitis H10.9
[2022-05-29] MEDS: OFLOXACIN 0.3% 75 DROPS/5 ML BTL OP SCH ×2 (17:59→21:03)
[2022-05-29] MEDS: cycloSPORINE (RESTASIS) OPB SCH (21:16)
[2022-05-29] MEDS ORDERED: LORazepam 2 MG/1 ML VIAL IV STA (21:29)
[2022-05-29] MEDS ORDERED: LORazepam 0.5 MG in SYRINGE 0 ML IV STA (21:42)
[2022-05-30] MEDS: metroNIDAZOLE 500 MG/100 ML BAG IV SCH ×4 (00:07→22:41)
[2022-05-30] MEDS: METOPROLOL TARTRATE 1 MG/ML VIAL IV SCH ×5 (00:08→22:41)
[2022-05-30] MEDS: OFLOXACIN 0.3% 75 DROPS/5 ML BTL OP SCH ×7 (01:00→22:42)
[2022-05-30 06:17] LABS: Basophils # (auto) 0.02 K/uL (0-0.2); Basophils % (auto) 0.2 %; Hemoglobin 11.1 g/dl (12.0-16.0); Immature Granulocytes # (auto) 0.06 K/uL (0.00-0.02); Immature Granulocytes % (auto) 0.6 %; Lymphocytes # (auto) 0.96 K/uL (1.2-3.4); Lymphocytes % (auto) 10.3 %; Mean Corpuscular Hemoglobin 33.7 pg (25.0-34.0); Mean Corpuscular Hgb Conc 33.6 g/dL (32.0-36.0); Mean Corpuscular Volume 100.3 fL (80.0-100.0); Mean Platelet Volume 10.6 fL (9.4-12.3); Monocytes # (auto) 0.79 K/uL (0.24-0.82); Monocytes % (auto) 8.4 %; Neutrophils # (auto) 7.52 K/uL (1.4-6.5); Neutrophils % (auto) 80.5 %; Platelet Count 216 K/uL (130-400); RDW Coefficient of Variation 14.3 % (11.5-14.5); RDW Standard Deviation 51.8 fL (36.4-46.3); Red Blood Count 3.29 M/uL (3.93-5.22); White Blood Count 9.35 K/ul (4.8-10.8)
[2022-05-30 06:56] LABS: BUN Creatinine Ratio 54.7 (10-20); C Reactive Protein 10.51 mg/dl (0-0.5); Calcium 8.3 mg/dl (8.5-10.1); Creatinine Clr Calc Pharmacy 76.6 ml/min; Est GFR (African American) 110.7 ml/min; Est GFR (Non-African American) 95.5 ml/min; Magnesium 1.8 mg/dl (1.7-2.4); Potassium 3.3 mmol/L (3.5-5.1)
[2022-05-30] MEDS: PHENobarbital sodium 130 MG/ML VIAL IV SCH (09:06)
[2022-05-30] MEDS: LORazepam 0.25 MG in SYRINGE 0 ML IV SCH ×2 (09:07→20:21)
[2022-05-30] MEDS: FAMOTIDINE 20 MG in SYRINGE 3 ML IV SCH ×2 (09:07→20:25)
[2022-05-30] MEDS: HEPARIN SOD 5,000 UNIT/0.5 ML VIAL SQ SCH ×2 (09:07→20:20)
[2022-05-30] MEDS: ASPIRIN 81 MG ECTAB PO SCH (09:08)
[2022-05-30] MEDS: cycloSPORINE (RESTASIS) OPB SCH ×2 (09:09→20:48)
[2022-05-30] MEDS ORDERED: DEXTROSE 5% 1,000 ML IV SCH (09:30)
--- NOTE | 2022-05-30 12:29 | Hospitalist Progress Note ---
Date of Service May 30, 2022 Assessment & Plan (1) Acute respiratory failure with hypoxia: Plan: Secondary to acute HFrEF Also with aspiration pneumonitis CRP markedly elevated at 15.7 and now coming down- could be due to recent stercoral colitis, but certainly could be from pneumonia Chest x-ray with interstitial/vascular thickening and right perihilar hazy airspace opacities favoring progressive asymmetric pulmonary edema. Also with trace bilateral pleural effusions With metabolic acidosis development on 05/29-initially thought to potentially be from over ventilation because she was on BiPAP. She has since been converted to CPAP at night and there is no change in serum bicarbonate. Lactate is normal Metabolic acidosis possibly secondary to dehydration CRP trending downward, WBC count normalized Afebrile Weaned to 2 L nasal cannula -Improved now after being on CPAP, receiving 1 dose of IV Lasix, and beginning treatment with antibiotics for aspiration pneumonitis -Continue supplemental O2 to keep pulse ox greater than 90% -Hold off on any further diuretics and in fact giving IV fluids as below -Continue ceftriaxone and metronidazole for aspiration pneumonia -Follow BMP in the morning (2) Acute systolic (congestive) heart failure: Plan: EF 25-30% on echo. numerous wall motion abnormalities c/w ischemic cardiomyopathy. Also with akinetic region which is highly suggestive of prior [place]. has severe sinus tachycardia to the 140s which is now improved to the 110s-120s. Was started on lopressor 2.5mg IV q6h due to n.p.o. status-Will convert to Toprol-XL for tomorrow Diuresed with Lasix 20 Mg IV x1 on 05/28 Now with hypernatremia, hypokalemia-hold any further diuretics Replace potassium chloride IV again today with 40 M EQ Home lisinopril is on hold due to n.p.o. status-restart this versus Entresto when able to tolerate p.o.-likely tomorrow VERY POOR PROGNOSIS and VERY POOR CANDIDATE for diagnostic heart cath, etc. (3) Aspiration pneumonia: Plan: suspected Continue IV Rocephin and metronidazole Appreciate speech evaluation after weaned off CPAP on 05/29-okay for pured diet Would need VFSS to fully assess if safe with thin liquids, but family pursuing permissive aspiration Caregiver and sister at bedside report she has been frequently coughing with eating since hospitalization Aspiration precautions After discussion with sister at bedside, permissive aspiration is acceptable (4) Hypernatremia: Plan: Worsening 159 Start D5W x1 L Follow BMP in the morning (5) Hypokalemia: Plan: Low again today due to previous Lasix use and poor p.o. intake Replace with IV potassium chloride Follow BMP and magnesium in the morning (6) Elevated troponin: Plan: Myocardial infarction type 2 in setting of acute hypoxic respiratory failure and acute systolic CHF given her echo findings I cannot rule out an ACS event she is nonverbal and a quadriplegic - likely to not express or show symptoms further, her EKG shows anterior ST changes supportive care defer on heparin drip -Started aspirin 81 Mg p.o. once daily (7) Ischemic cardiomyopathy: Plan: as noted on echo - see above (8) Stercoral colitis: Plan: clinically improved numerous bowel movements this weekend s/p enema in the ER followed by dulcolax and miralax etc abdominal exam benign Continue pured diet (9) Quadriplegic cerebral palsy: Plan: lives at [facility] patient is on chronic valium 5mg TID to avoid withdrawal and risk of seizures, was placed on ativan 0.25mg IV BID while n.p.o. valium on hold due to NPO status-restart tomorrow -Continue to hold baclofen due to lethargy (10) Hypertension: Plan: Converting IV Lopressor to Toprol-XL as above Holding lisinopril as above (11) Diabetes: Plan: takes metformin 500 once daily this is on hold BSGs are controlled novolog if necessary (12) Seizure disorder: Plan: Continue IV phenobarbital until reliably taking p.o. phenobarbital level wnl Converting back to home p.o. Valium tomorrow and DC IV Ativan (13) Sinus tachycardia: Plan: 2nd to systolic CHF, improved but remains in the 110s Starting Toprol-XL 25 Mg once daily tomorrow and titrate up as able to (14) Conjunctivitis: Plan: Improving -Continue Ocuflox eyedrops to left eye -Continue Restasis for dry eyes (15) Counseling regarding goals of care: Plan: Previous hospitalist met with pt's sister Caitie along with the 2 representatives from [facility]. LENGTHY discussion to address code status, current problems, possible Rx options, etc. Ene does not have a formal POA but Caitie was agreeable to making decisions on her sister's behalf. Explained that she is a very poor heart cath candidate -- too sick to pursue such, and even if a candidate - if severe CAD is found - she would be an even worse CABG candidate. Caitie and the reps from [employer] all agreed that aggressive measures are not in Ene's best interest. Discussed concern that Ene may have aspirated and may be developing pneumonia (hence the worsening respiratory status overnight despite aggressive diuresis). Caitie agreed that DNR/DNI status is best for Ene. Caitie mentioned that some of her siblings (Ene & Caitie are from a family of 12 kids!) are in agreement with no aggressive measures. All collectively agreed that we would NOT escalate care beyond CPAP. If respiratory status worsens further we would shift to comfort care status/pathway. Had continued conversation on goals of care on 05/30 with sister at the bedside and Odessa her nurse from her agency. Given worsening hypernatremia, lethargy, poor p.o. intake, metabolic acidosis, underlying frail condition, if no improvements by tomorrow or worsens, will transition to comfort measures only and work on getting her home with hospice Plan Disposition-continued stay in PCU, guarded prognosis Eventually back to [facility] with 24/7 caregivers. Will likely need continuous oxygen. Admission and Anticipated Discharge Date Admission Date: May 26, 2022 Subjective Patient weaned down to 2 L nasal cannula today. Family and caregiver at the bedside reports she is more lethargic than usual, but is waking up to 8 lunch. She is coughing with eating but was lying down while eating. We sent her straight upright and make sure she was awake after that. Discussed goals of care with sister and nurse from her agency at the bedside. If no improvements or worsening by tomorrow, will transition to comfort care only. Sister reports that patient does not have good quality of life at this point. Telemetry with sinus tachycardia with rates in the 110s to 115's Review of Systems Review of Systems: All systems reviewed & are unremarkable except as noted in HPI & below Physical Exam Physical Exam: gen - dysmorphic in appearance, does not follow commands, nonverbal, nasal cannula in place, lethargic, falls asleep frequently HEENT-left eye with erythema of conjunctiva, mild erythema of lower lid improved from yesterday, only minimal yellow crusted exudate on lashes heart - tachy, s1 s2, no murmur lungs -crackles at the right base, otherwise diminished lung sounds throughout abd - soft, NT, ND, BS+ ext - no edema neuro - quadriplegia Results & Data Results & Data ([facility]) Vital Signs (Past 12 Hours) Vital Signs Temp Pulse Pulse Resp BP Pulse Ox O2 Del Method 05/30/22 11:46 37 C 102 H 18 101/64 97 Nasal Cannula 05/30/22 10:00 Nasal Cannula 05/30/22 08:00 98 H 05/30/22 07:39 37.1 C 101 H 16 115/59 L 95 Nasal Cannula 05/30/22 03:42 107 H 25 H 97 05/30/22 03:58 37.0 C 109 H 18 107/68 96 BiPAP O2 Flow Rate 05/30/22 11:46 2 05/30/22 10:00 3 05/30/22 08:00 05/30/22 07:39 3 05/30/22 03:42 4 05/30/22 03:58 Laboratory Results 05/30/22 05/30/22 05/30/22 Range/Units 09:47 05:27 05:27 WBC 9.35 (4.8-10.8) K/ul RBC 3.29 L (3.93-5.22) M/uL Hgb 11.1 L (12.0-16.0) g/dl Hct 33.0 L (34.1-44.9) % MCV 100.3 H (80.0-100.0) fL MCH 33.7 (25.0-34.0) pg MCHC 33.6 (32.0-36.0) g/dL RDW Std Deviation 51.8 H (36.4-46.3) fL RDW Coeff of Con 14.3 (11.5-14.5) % Plt Count 216 (130-400) K/uL MPV 10.6 (9.4-12.3) fL Immature Gran % (Auto) 0.6 % Neut % (Auto) 80.5 % Lymph % (Auto) 10.3 % [place] % (Auto) 8.4 % Eos % (Auto) 0.0 % Baso % (Auto) 0.2 % Neut # (Auto) 7.52 H (1.4-6.5) K/uL Lymph # (Auto) 0.96 L (1.2-3.4) K/uL [place] # (Auto) 0.79 (0.24-0.82) K/uL Eos # (Auto) 0.00 (0-0.50) K/uL Baso # (Auto) 0.02 (0-0.2) K/uL Immature Gran # (Auto) 0.06 H (0.00-0.02) K/uL Sodium 150 H (136-145) mmol/L Potassium 3.3 L (3.5-5.1) mmol/L Chloride 116 H (98-107) mmol/L Carbon Dioxide 15 L (21-32) mmol/L Anion Gap 19 H (3-11) BUN 29 H (6-23) mg/dl Creatinine 0.53 L (0.6-1.2) mg/dl Est Cr Clr Drug Dosing 76.6 ml/min Est GFR ( Amer) 110.7 ml/min Est GFR (Non-Af Amer) 95.5 ml/min BUN/Creatinine Ratio 54.7 H (10-20) Glucose 106 H (70-99(Fasting)) mg/dl Lactate 0.7 (0.4-2.0) mmol/L Calcium 8.3 L (8.5-10.1) mg/dl Magnesium 1.8 (1.7-2.4) mg/dl C-Reactive Protein 10.51 H (0-0.5) mg/dl PG Care Time/CCT Total # of Minutes Spent Total Time Spent with Patient: Total time spent is greater than 50% in coordination of care (as documented) at patient's floor/unit and/or counseling patient: Coding Level of Care Code 88000 Subseq Hosp Care Lvl 3 Diagnoses Acute respiratory failure with hypoxia J96.01 Acute systolic (congestive) heart failure I50.21 Aspiration pneumonia J69.0 Hypernatremia E87.0 Hypokalemia E87.6 Elevated troponin R77.8 Ischemic cardiomyopathy I25.5 Stercoral colitis K52.89 Quadriplegic cerebral palsy G80.8 Hypertension I10 Diabetes E11.9 Seizure disorder G40.909 Sinus tachycardia R00.0 Conjunctivitis H10.9 Counseling regarding goals of care Z71.89
[2022-05-30] MEDS: POTASSIUM CHLORIDE / WTR 10 MEQ/100 ML PLCT IV SCH ×4 (12:39→16:06)
[2022-05-30] MEDS: cefTRIAXone SODIUM 1,000 MG in DEXTROSE 5% AD-VAN 50 ML IV SCH (14:36)
[2022-05-30] MEDS ORDERED: MoRPHine SULFATE 2 MG/ML CARP IV STA (21:11)
[2022-05-31] MEDS: METOPROLOL TARTRATE 1 MG/ML VIAL IV SCH (05:50)
[2022-05-31] MEDS: OFLOXACIN 0.3% 75 DROPS/5 ML BTL OP SCH ×6 (05:51→23:58)
[2022-05-31 06:48] LABS: Basophils # (auto) 0.02 K/uL (0-0.2); Basophils % (auto) 0.3 %; Eosinophils # (auto) 0.09 K/uL (0-0.50); Eosinophils % (auto) 1.2 %; Hematocrit (blood only) 30.6 % (34.1-44.9); Hemoglobin 10.6 g/dl (12.0-16.0); Immature Granulocytes # (auto) 0.08 K/uL (0.00-0.02); Immature Granulocytes % (auto) 1.1 %; Lymphocytes # (auto) 0.97 K/uL (1.2-3.4); Lymphocytes % (auto) 12.9 %; Mean Corpuscular Hemoglobin 34.2 pg (25.0-34.0); Mean Corpuscular Hgb Conc 34.6 g/dL (32.0-36.0); Mean Corpuscular Volume 98.7 fL (80.0-100.0); Mean Platelet Volume 10.6 fL (9.4-12.3); Monocytes # (auto) 0.77 K/uL (0.24-0.82); Monocytes % (auto) 10.3 %; Neutrophils # (auto) 5.57 K/uL (1.4-6.5); Neutrophils % (auto) 74.2 %; Nucleated RBC # (auto) 0.03 K/uL (0-0); Nucleated RBC % (auto) 0.4 %; Platelet Count 217 K/uL (130-400); RDW Coefficient of Variation 14.3 % (11.5-14.5); RDW Standard Deviation 51.7 fL (36.4-46.3)
[2022-05-31 07:25] LABS: Albumin Level 3.4 gm/dl (3.4-5.0); BUN Creatinine Ratio 43.1 (10-20); Bilirubin,Total 0.4 mg/dl (0.2-1.0); Calcium 8.1 mg/dl (8.5-10.1); Creatinine Clr Calc Pharmacy 79.6 ml/min; Est GFR (African American) 112.1 ml/min; Est GFR (Non-African American) 96.7 ml/min; Globulin 3.3 gm/dl (2.5-4.0); Magnesium 1.9 mg/dl (1.7-2.4); Potassium 3.2 mmol/L (3.5-5.1); Total Protein 6.7 gm/dl (6.0-8.3)
[2022-05-31] MEDS: metroNIDAZOLE 500 MG/100 ML BAG IV SCH ×3 (07:47→23:58)
[2022-05-31] MEDS: FAMOTIDINE 20 MG in SYRINGE 3 ML IV SCH (08:51)
[2022-05-31] MEDS: ASPIRIN 81 MG ECTAB PO SCH (08:54)
[2022-05-31] MEDS: cycloSPORINE (RESTASIS) OPB SCH ×2 (08:55→19:41)
[2022-05-31] MEDS: HEPARIN SOD 5,000 UNIT/0.5 ML VIAL SQ SCH ×2 (08:55→19:41)
[2022-05-31] MEDS: METOPROLOL SUCC 25MG EXT REL TAB PO SCH (08:56)
[2022-05-31] MEDS ORDERED: MAGNESIUM SULFATE / D5W 1 GM/100 ML BAG IV ONE (09:03)
[2022-05-31] MEDS: diazePAM 5 MG TABLET PO SCH ×3 (09:07→19:47)
[2022-05-31] MEDS: POTASSIUM CHLORIDE / WTR 10 MEQ/100 ML PLCT IV SCH ×4 (09:19→12:27)
[2022-05-31] MEDS: PHENobarbital sodium 130 MG/ML VIAL IV SCH (09:19)
--- NOTE | 2022-05-31 12:06 | Hospitalist Progress Note ---
Date of Service May 31, 2022 Assessment & Plan (1) Acute respiratory failure with hypoxia: Plan: Secondary to acute HFrEF Also with aspiration pneumonitis CRP markedly elevated at 15.7 and now coming down- could be due to recent stercoral colitis, but certainly could be from pneumonia Chest x-ray with interstitial/vascular thickening and right perihilar hazy airspace opacities favoring progressive asymmetric pulmonary edema. Also with trace bilateral pleural effusions Was given 1 dose IV lasix on 05/28 and developed hypernatremia With metabolic acidosis development on 05/29-initially thought to potentially be from over ventilation because she was on BiPAP. She was converted to CPAP at night and there was no change in serum bicarbonate. Now acidosis resolving with continued IVF hydration Lactate is normal Metabolic acidosis possibly secondary to dehydration CRP trending downward, WBC count normalized Afebrile Weaned to 2 L nasal cannula and stable, uses CPAP for a few hours each night for any tachypnea -Continue supplemental O2 to keep pulse ox greater than 90% -Hold off on any further diuretics and in fact giving IV fluids as below -Continue ceftriaxone and metronidazole for aspiration pneumonia -Follow BMP in the morning (2) Acute systolic (congestive) heart failure: Plan: EF 25-30% on echo. numerous wall motion abnormalities c/w ischemic cardiomyopathy. Also with akinetic region which is highly suggestive of prior [place]. has severe sinus tachycardia to the 140s which is now improved to the 110s-120s. -started Toprol-XL 25mg daily Diuresed with Lasix 20 Mg IV x1 on 05/28 Now with hypernatremia, hypokalemia-hold any further diuretics and actually giving IVFs Replace potassium chloride IV again today with 40 M EQ Home lisinopril is on hold due to previous n.p.o. status-restart this this evening at a lower dose for now of 5mg VERY POOR PROGNOSIS and VERY POOR CANDIDATE for diagnostic heart cath, etc. (3) Aspiration pneumonia: Plan: suspected, improving, less O2 requirement Continue IV Rocephin and metronidazole Appreciate speech evaluation after weaned off CPAP on 05/29-okay for pured diet Would need VFSS to fully assess if safe with thin liquids, but family pursuing permissive aspiration Caregiver and sister at bedside report she has been frequently coughing with eating since hospitalization although seems improved on 05/31 Aspiration precautions After discussion with sister at bedside, permissive aspiration is acceptable (4) Hypernatremia: Plan: Worsened to 150 but now down to 148 with D5W x 1 L on 05/30 Follow BMP in the morning she is eating and drinking more po now so hold off on IVFs further (5) Hypokalemia: Plan: Low again today due to previous Lasix use and poor p.o. intake Replace with IV potassium chloride, 1 gram IV magnesium Follow BMP and magnesium in the morning (6) Elevated troponin: Plan: Myocardial infarction type 2 in setting of acute hypoxic respiratory failure and acute systolic CHF given her echo findings I cannot rule out an ACS event she is nonverbal and a quadriplegic - likely to not express or show symptoms further, her EKG shows anterior ST changes supportive care defer on heparin drip -Started aspirin 81 Mg p.o. once daily (7) Ischemic cardiomyopathy: Plan: as noted on echo - see above (8) Stercoral colitis: Plan: clinically improved numerous bowel movements this weekend s/p enema in the ER followed by dulcolax and miralax etc abdominal exam benign Continue pured diet (9) Quadriplegic cerebral palsy: Plan: lives at [facility] patient is on chronic valium 5mg TID to avoid withdrawal and risk of seizures, was placed on ativan 0.25mg IV BID while n.p.o. valium has now been restarted -Continue to hold baclofen due to lethargy but this is also improving so likely restart tomorrow (10) Hypertension: Plan: continue Toprol-XL as above restart lisinopril as above (11) Diabetes: Plan: takes metformin 500 once daily this is on hold BSGs are controlled novolog if necessary (12) Seizure disorder: Plan: tolerating po meds now--> dc IV phenobarbital and restart home po dose phenobarbital level wnl continue valium tid (13) Sinus tachycardia: Plan: 2nd to systolic CHF, improving now on Toprol XL, rates now down to 90-100s continue tele monitoring x 1 more day (14) Conjunctivitis: Plan: Improving -Continue Ocuflox eyedrops to left eye -Continue Restasis for dry eyes (15) Counseling regarding goals of care: Plan: Previous hospitalist met with pt's sister Caitie along with the 2 representatives from [employer]. LENGTHY discussion to address code status, current problems, possible Rx options, etc. Ene does not have a formal POA but Caitie was agreeable to making decisions on her sister's behalf. Explained that she is a very poor heart cath candidate -- too sick to pursue such, and even if a candidate - if severe CAD is found - she would be an even worse CABG candidate. Caitie and the reps from [employer] all agreed that aggressive measures are not in Ene's best interest. Discussed concern that Ene may have aspirated and may be developing pneumonia (hence the worsening respiratory status overnight despite aggressive diuresis). Caitie agreed that DNR/DNI status is best for Ene. Caitie mentioned that some of her siblings (Ene & Caitie are from a family of 12 kids!) are in agreement with no aggressive measures. All collectively agreed that we would NOT escalate care beyond CPAP. If respiratory status worsens further we would shift to comfort care status/pathway. Had continued conversation on goals of care on 05/30 with sister at the bedside and [place] her nurse from her agency and again with sister on 05/31. Sister wants to bring her home on hospice but still checking into seeing if caregives would be allowed to administer po Roxanol if/when needed if further decompensated. Low threshold to transition to B[employer] if further declines but seems a bit better today Plan Disposition-continued stay in PCU, guarded prognosis Eventually back to custodial with 24/7 caregivers. Will likely need continuous oxygen. Admission and Anticipated Discharge Date Admission Date: May 26, 2022 Subjective Pt needed CPAP in the middle of the night with some worsening tachypnea as per caregiver at bedside, but now back on 2LNC and doing well, looks more alert today. Is answering questions with yes and no head nods/shakes. SHe is eating breakfast and lunch and was able to take pills today crushed in pudding. Tele with improved tachycardia-now 90-100s sinus tach. Review of Systems Review of Systems: All systems reviewed & are unremarkable except as noted in HPI & below Physical Exam Physical Exam: gen - dysmorphic in appearance, does not follow commands, nonve rbal but shales head no and nods yes, nasal cannula in place, much more alert/awake today HEENT-left eye minimal erythema of conjunctiva, resolved erythema of lower lid, no further exudate on lashes heart - tachy, s1 s2, no murmur lungs -crackles at the right base, otherwise diminished lung sounds throughout abd - soft, NT, ND, BS+ ext - no edema neuro - quadriplegia Results & Data Results & Data ([facility]) Vital Signs (Past 12 Hours) Vital Signs Temp Pulse Pulse Resp BP BP Pulse Ox 05/31/22 11:33 37.1 C 100 H 18 114/70 95 05/31/22 07:30 97 H 05/31/22 06:48 36.5 C 96 H 18 116/68 94 05/31/22 02:45 112 H 32 H 97 05/31/22 02:45 36.6 C 115 H 16 120/62 94 O2 Del Method O2 Flow Rate FiO2 05/31/22 11:33 Nasal Cannula 2 05/31/22 07:30 05/31/22 06:48 Nasal Cannula 2 05/31/22 02:45 3 97 05/31/22 02:45 Nasal Cannula 2 Laboratory Results 05/31/22 05/31/22 Range/Units 06:11 06:11 WBC 7.50 (4.8-10.8) K/ul RBC 3.10 L (3.93-5.22) M/uL Hgb 10.6 L (12.0-16.0) g/dl Hct 30.6 L (34.1-44.9) % MCV 98.7 (80.0-100.0) fL MCH 34.2 H (25.0-34.0) pg MCHC 34.6 (32.0-36.0) g/dL RDW Std Deviation 51.7 H (36.4-46.3) fL RDW Coeff of Con 14.3 (11.5-14.5) % Plt Count 217 (130-400) K/uL MPV 10.6 (9.4-12.3) fL Immature Gran % (Auto) 1.1 % Neut % (Auto) 74.2 % Lymph % (Auto) 12.9 % [place] % (Auto) 10.3 % Eos % (Auto) 1.2 % Baso % (Auto) 0.3 % Neut # (Auto) 5.57 (1.4-6.5) K/uL Lymph # (Auto) 0.97 L (1.2-3.4) K/uL [place] # (Auto) 0.77 (0.24-0.82) K/uL Eos # (Auto) 0.09 (0-0.50) K/uL Baso # (Auto) 0.02 (0-0.2) K/uL Immature Gran # (Auto) 0.08 H (0.00-0.02) K/uL Absolute Nucleated RBC 0.03 H (0-0) K/uL Nucleated RBC % (auto) 0.4 % Sodium 148 H (136-145) mmol/L Potassium 3.2 L (3.5-5.1) mmol/L Chloride 116 H (98-107) mmol/L Carbon Dioxide 20 L (21-32) mmol/L Anion Gap 12 H (3-11) BUN 22 (6-23) mg/dl Creatinine 0.51 L (0.6-1.2) mg/dl Est Cr Clr Drug Dosing 79.6 ml/min Est GFR ( Amer) 112.1 ml/min Est GFR (Non-Af Amer) 96.7 ml/min BUN/Creatinine Ratio 43.1 H (10-20) Glucose 132 H (70-99(Fasting)) mg/dl Calcium 8.1 L (8.5-10.1) mg/dl Magnesium 1.9 (1.7-2.4) mg/dl Total Bilirubin 0.4 (0.2-1.0) mg/dl AST 12 L (13-39) U/L ALT 11 (7-52) U/L Alkaline Phosphatase 51 (34-104) U/L Total Protein 6.7 (6.0-8.3) gm/dl Albumin 3.4 (3.4-5.0) gm/dl Globulin 3.3 (2.5-4.0) gm/dl Albumin/Globulin Ratio 1.0 (0.9-2) PG Care Time/CCT Total # of Minutes Spent Total Time Spent with Patient: Total time spent is greater than 50% in coordination of care (as documented) at patient's floor/unit and/or counseling patient: Coding Level of Care Code 43576 Subseq Hosp Care Lvl 3 Diagnoses Acute respiratory failure with hypoxia J96.01 Acute systolic (congestive) heart failure I50.21 Aspiration pneumonia J69.0 Hypernatremia E87.0 Hypokalemia E87.6 Elevated troponin R77.8 Ischemic cardiomyopathy I25.5 Stercoral colitis K52.89 Quadriplegic cerebral palsy G80.8 Hypertension I10 Diabetes E11.9 Seizure disorder G40.909 Sinus tachycardia R00.0 Conjunctivitis H10.9 Counseling regarding goals of care Z71.89
[2022-05-31] MEDS: cefTRIAXone SODIUM 1,000 MG in DEXTROSE 5% AD-VAN 50 ML IV SCH (15:23)
[2022-05-31] MEDS: lisinopril 5 MG TAB PO SCH (19:42)
[2022-05-31] MEDS: PHENobarbitaL 30 MG TAB PO SCH (19:48)
[2022-05-31] MEDS ORDERED: ACETAMINOPHEN 1,000 MG/100 ML VIAL IV PRN (22:45)
[2022-06-01] MEDS: OFLOXACIN 0.3% 75 DROPS/5 ML BTL OP SCH ×6 (04:57→23:40)
[2022-06-01 07:17] LABS: Basophils # (auto) 0.03 K/uL (0-0.2); Basophils % (auto) 0.5 %; Eosinophils # (auto) 0.34 K/uL (0-0.50); Eosinophils % (auto) 5.8 %; Hematocrit (blood only) 30.5 % (34.1-44.9); Hemoglobin 10.5 g/dl (12.0-16.0); Immature Granulocytes % (auto) 1.7 %; Lymphocytes # (auto) 1.24 K/uL (1.2-3.4); Lymphocytes % (auto) 21.2 %; Mean Corpuscular Hgb Conc 34.4 g/dL (32.0-36.0); Mean Corpuscular Volume 98.7 fL (80.0-100.0); Monocytes # (auto) 0.58 K/uL (0.24-0.82); Monocytes % (auto) 9.9 %; Neutrophils # (auto) 3.55 K/uL (1.4-6.5); Neutrophils % (auto) 60.9 %; Platelet Count 187 K/uL (130-400); RDW Coefficient of Variation 14.6 % (11.5-14.5); RDW Standard Deviation 53.1 fL (36.4-46.3); Red Blood Count 3.09 M/uL (3.93-5.22); White Blood Count 5.84 K/ul (4.8-10.8)
[2022-06-01] MEDS: metroNIDAZOLE 500 MG/100 ML BAG IV SCH ×3 (07:32→23:40)
[2022-06-01] MEDS: diazePAM 5 MG TABLET PO SCH ×3 (07:41→19:12)
[2022-06-01 07:49] LABS: Calcium 7.8 mg/dl (8.5-10.1); Creatinine Clr Calc Pharmacy 88.2 ml/min; Est GFR (African American) 119.5 ml/min; Est GFR (Non-African American) 103.1 ml/min; Potassium 3.5 mmol/L (3.5-5.1)
[2022-06-01] MEDS: ASPIRIN 81 MG ECTAB PO SCH (08:34)
[2022-06-01] MEDS: PANTOprazole 40 MG TAB PO SCH (08:34)
[2022-06-01] MEDS: METOPROLOL SUCC 25MG EXT REL TAB PO SCH (08:34)
[2022-06-01] MEDS: HEPARIN SOD 5,000 UNIT/0.5 ML VIAL SQ SCH ×2 (08:34→19:12)
[2022-06-01] MEDS: cycloSPORINE (RESTASIS) OPB SCH ×2 (08:36→19:13)
[2022-06-01] MEDS ORDERED: lisinopril 5 MG TAB PO SCH (09:00)
[2022-06-01] MEDS: DEXTROSE 5% 1,000 ML IV SCH ×2 (11:02→23:40)
[2022-06-01] MEDS: cefTRIAXone SODIUM 1,000 MG in DEXTROSE 5% AD-VAN 50 ML IV SCH (15:20)
--- NOTE | 2022-06-01 19:07 | Hospitalist Progress Note ---
Date of Service June 01, 2022 Assessment & Plan (1) Acute respiratory failure with hypoxia: Plan: Secondary to acute HFrEF and aspiration pneumonitis Chest x-ray with interstitial/vascular thickening and right perihilar hazy airspace opacities favoring progressive asymmetric pulmonary edema. Also with trace bilateral pleural effusions Was given 1 dose IV lasix on 05/28 and developed hypernatremia-has actually been on IV fluids for several days now Treating for aspiration pneumonia as below Weaned to 2-3 L nasal cannula and stable, uses CPAP for a few hours each night for any tachypnea -Continue supplemental O2 to keep pulse ox greater than 90% -Hold off on any further diuretics and in fact giving IV fluids as below -Continue antibiotics for aspiration pneumonia (2) Aspiration pneumonia: Plan: Patient developed respiratory failure with hypoxia, and has been noted to be coughing with eating and drinking. Had a new leukocytosis and elevated CRP Started on antibiotics with ceftriaxone and Flagyl for several days Also developed high anion gap metabolic acidosis with a normal lactate Now acidosis resolving with continued IVF hydration WBC count normalized, weaning down supplemental O2, but then started spiking fevers on the evening of 05/31 -Check blood cultures -Discontinue Rocephin and start cefepime in case of gram-negative hospital- acquired pneumonia -Continue metronidazole for anaerobic coverage because of aspiration chronically -Appreciate speech therapy consultation-okay for pured diet -Would need VFSS to fully assess if safe with thin liquids, but family pursuing permissive aspiration -Continue aspiration precautions -After discussion with sister at bedside, permissive aspiration is acceptable (3) Acute systolic (congestive) heart failure: Plan: EF 25-30% on echo. numerous wall motion abnormalities c/w ischemic cardiomyopathy. Also with akinetic region which is highly suggestive of prior [place]. had sinus tachycardia to the 140s which is now improved to the 80s -started Toprol-XL 25mg daily Diuresed with Lasix 20 Mg IV x1 on 05/28 which caused hyponatremia and hypokalemia -hold any further diuretics and actually giving IVFs -Lisinopril restarted after being held initially at lower dose of 5mg VERY POOR PROGNOSIS and VERY POOR CANDIDATE for diagnostic heart cath, etc. (4) Hypernatremia: Plan: Worsened to 150 but then down to 148 with D5W x 1 L on 05/30 -Held off on further IV fluids to see if she would be able to keep up with free water intake on her own Unfortunately, sodium up to 152 on 06/01 Start D5W again Follow BMP Encourage nursing and caregivers to give free water (5) Hypokalemia: Plan: Replaced and improved Follow BMP and magnesium in the morning (6) Elevated troponin: Plan: Myocardial infarction type 2 in setting of acute hypoxic respiratory failure and acute systolic CHF given her echo findings I cannot rule out an ACS event she is nonverbal and a quadriplegic - likely to not express or show symptoms further, her EKG shows anterior ST changes supportive care defer on heparin drip -Started aspirin 81 Mg p.o. once daily (7) Ischemic cardiomyopathy: Plan: as noted on echo - see above (8) Stercoral colitis: Plan: clinically improved numerous bowel movements this weekend s/p enema in the ER followed by dulcolax and miralax etc abdominal exam benign Continue pured diet (9) Quadriplegic cerebral palsy: Plan: lives at [facility] patient is on chronic valium 5mg TID -Continue to hold baclofen but may need to restart tomorrow to avoid withdrawal (10) Hypertension: Plan: continue Toprol-XL as above Restarted lower dose of lisinopril as above Follow blood pressures (11) Diabetes: Plan: takes metformin 500 once daily this is on hold BSGs are controlled novolog if necessary (12) Seizure disorder: Plan: Continue p.o. phenobarbital phenobarbital level wnl continue valium tid (13) Sinus tachycardia: Plan: 2nd to systolic CHF, now resolved on Toprol XL, rates now in the 80s continue tele monitoring x 1 more day (14) Conjunctivitis: Plan: Improving -Continue Ocuflox eyedrops to left eye -Continue Restasis for dry eyes (15) Counseling regarding goals of care: Plan: Previous hospitalist met with pt's sister Caitie along with the 2 representatives from [facility]. LENGTHY discussion to address code status, current problems, possible Rx options, etc. Ene does not have a formal POA but Caitie was agreeable to making decisions on her sister's behalf. Explained that she is a very poor heart cath candidate -- too sick to pursue such, and even if a candidate - if severe CAD is found - she would be an even worse CABG candidate. Caitie and the reps from [facility] all agreed that aggressive measures are not in Ene's best interest. Discussed concern that Ene may have aspirated and may be developing pneumonia (hence the worsening respiratory status overnight despite aggressive diuresis). Caitie agreed that DNR/DNI status is best for Ene. Caitie mentioned that some of her siblings (Ene & Caitie are from a family of 12 kids!) are in agreement with no aggressive measures. All collectively agreed that we would NOT escalate care beyond CPAP. If respiratory status worsens further we would shift to comfort care status/pathway. Had continued conversation on goals of care on 05/30 with sister at the bedside and Odessa her nurse from her agency and again with sister on 05/31 and 06/01. Sister wants to bring her home on hospice on Saturday when [facility] able to accept her back Low threshold to transition to [facility] if further declines but seems stable Plan Disposition-continued stay in PCU, but likely downgrade to medical/surgical unit tomorrow Eventually back to [facility] with 24/7 caregivers on home hospice. Case management consult placed. Will likely need continuous oxygen. Admission and Anticipated Discharge Date Admission Date: May 26, 2022 Subjective Patient had an unremarkable day as per nursing staff. She is eating her meals with assistance, having difficulty drinking from her usual modified cup/straw but was able to drink through the syringe as per nursing. She did spike a fever last night and another low-grade fever this evening. Patient's sister on the phone tells me that they have decided to bring the patient home with hospice hopefully on Saturday. She also reports that the patient was repeatedly trying to draw her sister's attention to the ceiling and then said the word "mom" which is the only other way besides yes and now that she is said almost her entire life. The patient's sister thinks that the patie nt is seeing visions of their mother. Telemetry with normal sinus rhythm with rates in the 80s Review of Systems Review of Systems: Unobtainable due to cognitive status Physical Exam Physical Exam: gen - dysmorphic in appearance, does not follow commands, nonverbal but shales head no and nods yes, nasal cannula in place, much more jeff rt/awake today HEENT-left eye minimal erythema of conjunctiva, resolved erythema of lower lid, no further exudate on lashes heart - tachy, s1 s2, no murmur lungs -crackles at the right base, otherwise diminished lung sounds throughout abd - soft, NT, ND, BS+ ext - no edema neuro - quadriplegia Results & Data Results & Data ([facility]) Vital Signs (Past 12 Hours) Vital Signs Temp Pulse Pulse Resp BP BP Pulse Ox 06/01/22 08:25 37.5 C 95 H 18 110/70 94 06/01/22 14:47 106 H 06/01/22 13:33 37.6 C H 97 H 16 113/72 91 06/01/22 09:01 88 06/01/22 08:48 O2 Del Method O2 Flow Rate 06/01/22 08:25 Room Air 06/01/22 14:47 06/01/22 13:33 Nasal Cannula 4 06/01/22 09:01 06/01/22 08:48 Nasal Cannula 2 Laboratory Results 06/01/22 07:01 06/01/22 07:01 PG Care Time/CCT Total # of Minutes Spent Total Time Spent with Patient: Total time spent is greater than 50% in coordination of care (as documented) at patient's floor/unit and/or counseling patient: Coding Level of Care Code 59061 Subseq Hosp Care Lvl 2 Diagnoses Acute respiratory failure with hypoxia J96.01 Aspiration pneumonia J69.0 Acute systolic (congestive) heart failure I50.21 Hypernatremia E87.0 Hypokalemia E87.6 Elevated troponin R77.8 Ischemic cardiomyopathy I25.5 Stercoral colitis K52.89 Quadriplegic cerebral palsy G80.8 Hypertension I10 Diabetes E11.9 Seizure disorder G40.909 Sinus tachycardia R00.0 Conjunctivitis H10.9 Counseling regarding goals of care Z71.89
[2022-06-01] MEDS: PHENobarbitaL 30 MG TAB PO SCH (19:12)
[2022-06-01] MEDS: lisinopril 5 MG TAB PO SCH (19:12)
[2022-06-01] MEDS: CEFEPIME 2,000 MG in SYRINGE 0 ML IV SCH (20:24)
[2022-06-02] MEDS: OFLOXACIN 0.3% 75 DROPS/5 ML BTL OP SCH ×6 (03:39→23:28)
[2022-06-02] MEDS: CEFEPIME 2,000 MG in SYRINGE 0 ML IV SCH ×3 (03:39→18:18)
[2022-06-02] MEDS: PANTOprazole 40 MG TAB PO SCH (07:34)
[2022-06-02] MEDS: cycloSPORINE (RESTASIS) OPB SCH ×2 (07:34→19:29)
[2022-06-02] MEDS: diazePAM 5 MG TABLET PO SCH ×3 (07:34→19:26)
[2022-06-02] MEDS: HEPARIN SOD 5,000 UNIT/0.5 ML VIAL SQ SCH ×2 (07:35→19:27)
[2022-06-02] MEDS: METOPROLOL SUCC 25MG EXT REL TAB PO SCH (07:35)
[2022-06-02] MEDS: ASPIRIN 81 MG ECTAB PO SCH (07:36)
[2022-06-02] MEDS: metroNIDAZOLE 500 MG/100 ML BAG IV SCH ×3 (07:36→23:28)
[2022-06-02 10:36] LABS: BUN Creatinine Ratio 66.7 (10-20); Calcium 7.4 mg/dl (8.5-10.1); Creatinine Clr Calc Pharmacy 112.3 ml/min; Est GFR (African American) 129.4 ml/min; Est GFR (Non-African American) 111.6 ml/min; Magnesium 1.7 mg/dl (1.7-2.4); Potassium 3.5 mmol/L (3.5-5.1)
[2022-06-02 11:01] LABS: Hematocrit (blood only) 28.2 % (34.1-44.9); Hemoglobin 9.8 g/dl (12.0-16.0); Mean Corpuscular Hemoglobin 34.1 pg (25.0-34.0); Mean Corpuscular Hgb Conc 34.8 g/dL (32.0-36.0); Mean Corpuscular Volume 98.3 fL (80.0-100.0); Mean Platelet Volume 11.2 fL (9.4-12.3); Nucleated RBC # (auto) 0.02 K/uL (0-0); Nucleated RBC % (auto) 0.2 %; Platelet Count 171 K/uL (130-400); RDW Coefficient of Variation 14.4 % (11.5-14.5); RDW Standard Deviation 51.8 fL (36.4-46.3); Red Blood Count 2.87 M/uL (3.93-5.22); White Blood Count 8.55 K/ul (4.8-10.8)
[2022-06-02 11:13] LABS: Basophils # (auto) 0.03 K/uL (0-0.2); Basophils % (auto) 0.4 %; Eosinophils # (auto) 0.47 K/uL (0-0.50); Eosinophils % (auto) 5.5 %; Immature Granulocytes # (auto) 0.14 K/uL (0.00-0.02); Immature Granulocytes % (auto) 1.6 %; Lymphocytes # (auto) 1.18 K/uL (1.2-3.4); Lymphocytes % (auto) 13.8 %; Monocytes # (auto) 0.66 K/uL (0.24-0.82); Monocytes % (auto) 7.7 %; Neutrophils # (auto) 6.07 K/uL (1.4-6.5)
--- NOTE | 2022-06-02 17:52 | Hospitalist Progress Note ---
Date of Service June 02, 2022 Assessment & Plan (1) Acute respiratory failure with hypoxia: Plan: Secondary to acute HFrEF and aspiration pneumonitis Chest x-ray with interstitial/vascular thickening and right perihilar hazy airspace opacities favoring progressive asymmetric pulmonary edema. Also with trace bilateral pleural effusions Was given 1 dose IV lasix on 05/28 and developed hypernatremia-has now been on IV fluids for many days now and is improving Treating for aspiration pneumonia as below Weaned to 2 L nasal cannula and stable, uses CPAP hs as needed -Continue supplemental O2 to keep pulse ox greater than 90% -Hold off on any further diuretics and in fact giving IV fluids as below -Continue antibiotics for aspiration pneumonia (2) Aspiration pneumonia: Plan: Patient developed respiratory failure with hypoxia, and has been noted to be coughing with eating and drinking. Had a new leukocytosis and elevated CRP Started on antibiotics with ceftriaxone and Flagyl for several days Also developed high anion gap metabolic acidosis with a normal lactate Now acidosis resolving with continued IVF hydration WBC count normalized, weaning down supplemental O2, but then started spiking fevers on the evening of 05/31 Changed abx to Cefepime and Flagyl in case of gram-negative hospital-acquired pneumonia and to cover for aspiration PNA/Anaerobes No afebrile, looking so much better -Appreciate speech therapy consultation-okay for pured diet -Would need VFSS to fully assess if safe with thin liquids, but family pursuing permissive aspiration and plan to go home with transition to home hospice -Continue aspiration precautions (3) Acute systolic (congestive) heart failure: Plan: EF 25-30% on echo. numerous wall motion abnormalities c/w ischemic cardiomyopathy. Also with akinetic region which is highly suggestive of prior [place]. had sinus tachycardia to the 140s which is now improved to the 80s -started Toprol-XL 25mg daily Diuresed with Lasix 20 Mg IV x1 on 05/28 which caused hyponatremia and hypokalemia -hold any further diuretics and actually giving IVFs -Lisinopril restarted after being held initially at lower dose of 5mg VERY POOR PROGNOSIS and VERY POOR CANDIDATE for diagnostic heart cath, etc. (4) Hypernatremia: Plan: Worsened to 150 but then down to 148 with D5W x 1 L on 05/30 -Held off on further IV fluids to see if she would be able to keep up with free water intake on her own Unfortunately, sodium up to 152 on 06/01 Started D5W again x 2L on 06/01 and now Na+ back to normal on 06/02 Follow BMP in AM hold further fluids at this time Encourage nursing and caregivers to give free water (5) Hypokalemia: Plan: Replaced and improved Follow BMP and magnesium in the morning (6) Elevated troponin: Plan: Myocardial infarction type 2 in setting of acute hypoxic respiratory failure and acute systolic CHF given her echo findings I cannot rule out an ACS event she is nonverbal and a quadriplegic - likely to not express or show symptoms further, her EKG shows anterior ST changes supportive care defer on heparin drip -Started aspirin 81 Mg p.o. once daily (7) Ischemic cardiomyopathy: Plan: as noted on echo - see above (8) Stercoral colitis: Plan: clinically improved numerous bowel movements this weekend s/p enema in the ER followed by dulcolax and miralax etc abdominal exam benign Continue pured diet (9) Quadriplegic cerebral palsy: Plan: lives at [facility] patient is on chronic valium 5mg TID -Continue to hold baclofen but will now restart to avoid withdrawal (10) Hypertension: Plan: continue Toprol-XL as above Restarted lower dose of lisinopril as above Follow blood pressures (11) Diabetes: Plan: takes metformin 500 once daily this is on hold BSGs are controlled novolog if necessary (12) Seizure disorder: Plan: Continue p.o. phenobarbital phenobarbital level wnl continue valium tid (13) Sinus tachycardia: Plan: 2nd to systolic CHF, now resolved on Toprol XL, rates now in the 80s continue tele monitoring (14) Conjunctivitis: Plan: Much improved -Continue Ocuflox eyedrops to left eye -Continue Restasis for dry eyes (15) Counseling regarding goals of care: Plan: Previous hospitalist met with pt's sister Caitie along with the 2 representatives from [facility]. LENGTHY discussion to address code status, current problems, possible Rx options, etc. Ene does not have a formal POA but Caitie was agreeable to making decisions on her sister's behalf. Explained that she is a very poor heart cath candidate -- too sick to pursue such, and even if a candidate - if severe CAD is found - she would be an even worse CABG candidate. Caitie and the reps from [facility] all agreed that aggressive measures are not in Ene's best interest. Discussed concern that Ene may have aspirated and may be developing pneumonia (hence the worsening respiratory status overnight despite aggressive diuresis). Caitie agreed that DNR/DNI status is best for Ene. Caitie mentioned that some of her siblings (Ene & Catiie are from a family of 12 kids!) are in agreement with no aggressive measures. All collectively agreed that we would NOT escalate care beyond CPAP. If respiratory status worsens further we would shift to comfort care status/pathway. Had continued conversation on goals of care on 05/30 with sister at the bedside and Odessa her nurse from her agency and again with sister on 05/31 and 06/01. Sister wants to bring her home on hospice on Saturday when [facility] able to accept her back. Submitted request to to offer Hospice options to get the ball rolling on this Low threshold to transition to [facility] [employer] [facility] if further declines but seems stable Plan Disposition-continued stay on tele Eventually back to nursing home with / caregivers on home hospice hopefully Saturday. Case management consult placed. Will likely need continuous oxygen. Admission and Anticipated Discharge Date Admission Date: May 26, 2022 Subjective Pt doing well today as per RN. SHe is smiling, denies pain.Eating. Tele with NSR, rates 70-100s Review of Systems Review of Systems: Unobtainable due to cognitive status Physical Exam Physical Exam: gen - dysmorphic in appearance, nonverbal but shakes head no and nods yes, nasal cannula in place, very alert and awake, smiling HEENT-left eye no further erythema of conjunctiva, resolved erythema of lower lid, no further exudate on lashes heart - RRR, normal s1 s2, no murmur lungs -crackles at the right base, otherwise diminished lung sounds throughout abd - soft, NT, ND, BS+ ext - no edema neuro - quadriplegia Results & Data Results & Data ([facility]) Vital Signs (Past 12 Hours) Vital Signs Temp Pulse Pulse Resp BP BP Pulse Ox 06/02/22 16:21 36.9 C 88 19 107/66 97 06/02/22 11:20 36.8 C 85 19 114/70 91 06/02/22 09:32 06/02/22 09:30 94 H 06/02/22 07:26 37.4 C 99 H 18 133/79 97 O2 Del Method O2 Flow Rate 06/02/22 16:21 Room Air 06/02/22 11:20 Nasal Cannula 2 06/02/22 09:32 Nasal Cannula 2 06/02/22 09:30 06/02/22 07:26 Nasal Cannula 2 Laboratory Results 06/02/22 06/02/22 Range/Units 09:41 09:41 WBC 8.55 (4.8-10.8) K/ul RBC 2.87 L (3.93-5.22) M/uL Hgb 9.8 L (12.0-16.0) g/dl Hct 28.2 L (34.1-44.9) % MCV 98.3 (80.0-100.0) fL MCH 34.1 H (25.0-34.0) pg MCHC 34.8 (32.0-36.0) g/dL RDW Std Deviation 51.8 H (36.4-46.3) fL RDW Coeff of Con 14.4 (11.5-14.5) % Plt Count 171 (130-400) K/uL MPV 11.2 (9.4-12.3) fL Immature Gran % (Auto) 1.6 % Neut % (Auto) 71.0 % Lymph % (Auto) 13.8 % Dubois % (Auto) 7.7 % Eos % (Auto) 5.5 % Baso % (Auto) 0.4 % Neut # (Auto) 6.07 (1.4-6.5) K/uL Lymph # (Auto) 1.18 L (1.2-3.4) K/uL Dubois # (Auto) 0.66 (0.24-0.82) K/uL Eos # (Auto) 0.47 (0-0.50) K/uL Baso # (Auto) 0.03 (0-0.2) K/uL Immature Gran # (Auto) 0.14 H (0.00-0.02) K/uL Absolute Nucleated RBC 0.02 H (0-0) K/uL Nucleated RBC % (auto) 0.2 % Sodium 142 D (136-145) mmol/L Potassium 3.5 (3.5-5.1) mmol/L Chloride 113 H (98-107) mmol/L Carbon Dioxide 22 (21-32) mmol/L Anion Gap 7 (3-11) BUN 22 (6-23) mg/dl Creatinine 0.33 L (0.6-1.2) mg/dl Est Cr Clr Drug Dosing 112.3 ml/min Est GFR ( Amer) 129.4 ml/min Est GFR (Non-Af Amer) 111.6 ml/min BUN/Creatinine Ratio 66.7 H (10-20) Glucose 155 H (70-99(Fasting)) mg/dl Calcium 7.4 L (8.5-10.1) mg/dl Magnesium 1.7 (1.7-2.4) mg/dl PG Care Time/CCT Total # of Minutes Spent Total Time Spent with Patient: Total time spent is greater than 50% in coordination of care (as documented) at patient's floor/unit and/or counseling patient: Coding Level of Care Code 79093 Subseq Hosp Care Lvl 2 Diagnoses Acute respiratory failure with hypoxia J96.01 Aspiration pneumonia J69.0 Acute systolic (congestive) heart failure I50.21 Hypernatremia E87.0 Hypokalemia E87.6 Elevated troponin R77.8 Ischemic cardiomyopathy I25.5 Stercoral colitis K52.89 Quadriplegic cerebral palsy G80.8 Hypertension I10 Diabetes E11.9 Seizure disorder G40.909 Sinus tachycardia R00.0 Conjunctivitis H10.9 Counseling regarding goals of care Z71.89
[2022-06-02] MEDS: lisinopril 5 MG TAB PO SCH (19:28)
[2022-06-02] MEDS: PHENobarbitaL 30 MG TAB PO SCH (19:32)
[2022-06-02] MEDS: BACLOFEN 20 MG TAB PO SCH (20:32)
[2022-06-03] MEDS: CEFEPIME 2,000 MG in SYRINGE 0 ML IV SCH ×3 (02:32→18:32)
[2022-06-03] MEDS: OFLOXACIN 0.3% 75 DROPS/5 ML BTL OP SCH ×6 (03:17→23:07)
[2022-06-03 07:19] LABS: BUN Creatinine Ratio 67.7 (10-20); Calcium 7.2 mg/dl (8.5-10.1); Creatinine Clr Calc Pharmacy 129.5 ml/min; Est GFR (African American) 132.1 ml/min; Magnesium 1.8 mg/dl (1.7-2.4)
[2022-06-03] MEDS: ASPIRIN 81 MG ECTAB PO SCH (08:24)
[2022-06-03] MEDS: cycloSPORINE (RESTASIS) OPB SCH ×2 (08:24→19:29)
[2022-06-03] MEDS: METOPROLOL SUCC 25MG EXT REL TAB PO SCH (08:24)
[2022-06-03] MEDS: BACLOFEN 20 MG TAB PO SCH ×4 (08:24→19:29)
[2022-06-03] MEDS: PANTOprazole 40 MG TAB PO SCH (08:24)
[2022-06-03] MEDS: HEPARIN SOD 5,000 UNIT/0.5 ML VIAL SQ SCH ×2 (08:25→19:30)
[2022-06-03] MEDS: diazePAM 5 MG TABLET PO SCH ×3 (08:29→19:27)
[2022-06-03] MEDS: POLYETHYLENE (MIRALAX) 17 GM PACK PO SCH (08:29)
[2022-06-03] MEDS ORDERED: POTASSIUM CHLORIDE / WTR 10 MEQ/100 ML PLCT IV ONE (08:37)
[2022-06-03] MEDS: metroNIDAZOLE 500 MG/100 ML BAG IV SCH ×3 (08:43→23:06)
[2022-06-03] MEDS: POTASSIUM CHLORIDE PWD 20 MEQ PACK PO SCH ×3 (09:42→19:38)
--- NOTE | 2022-06-03 17:24 | Hospitalist Progress Note ---
Date of Service June 03, 2022 Assessment & Plan (1) Acute respiratory failure with hypoxia: Plan: 2nd to #2 and #3 - resolving had been on CPAP - off for several days - now just on NC O2 cont supportive care for CHF cont IV abx for pneumonia (2) Acute systolic (congestive) heart failure: Plan: EF 25-30% on echo. numerous wall motion abnormalities c/w ischemic cardiomyopathy. also with nicolasa etic region which is highly suggestive of prior [place]. diuresed early in the stay then became hypernatremic - diuretics on hold since then. IV BB now transitioned to PO metoprolol succinate. Is on low-dose BEBO. Use lasix prn. VERY POOR CANDIDATE for diagnostic heart cath, etc. See discussions below. (3) Aspiration pneumonia: Plan: initially was on rocephin 1gm IV daily and flagyl IV then developed recurrent fevers rocephin broadened to cefepime on 06/01/22 thus, day #3 of cefepime today day #7 of flagyl - will d/c such of note - seen by speech - diet allowed aspiration precautions, etc (4) Elevated troponin: Plan: at minimum was due to myocardial demand ischemia in setting of #1/#2/#3 above given her echo findings I cannot rule out an ACS event she is nonverbal and a quadriplegic - likely to not express or show symptoms further, her EKGs have shown anterior ST changes her echo findings, need for cath, etc were discussed extensively with her sister (next of kin) and staff from [facility] everyone was in agreement that pursuing cath, etc was likely not in her best interest and thus cath was deferred will simply treat her CHF medically and likely to return to [facility] on Hospice (5) Ischemic cardiomyopathy: Plan: as noted on echo - see above (6) Stercoral colitis: Plan: resolved cont bowel maintenance (7) Fecal impaction: Plan: resolved (8) Colon distention: Plan: 2nd to #6 - resolved (9) Quadriplegic cerebral palsy: Plan: lives at [facility] Custodial patient is on chronic valium 5mg TID and baclofen 20mg qid likely contributes to her sedation (10) Hypertension: Plan: controlled with BB and BEBO (11) Diabetes: Plan: takes metformin 500 once daily this is on hold BSGs are controlled (12) Seizure disorder: Plan: cont phenobarbital most recent level wnl (13) DVT prophylaxis: Plan: heparin 5000 BID (14) Hypomagnesemia: Plan: replaced resolved (15) Sinus tachycardia: Plan: 2nd to systolic CHF resolved (16) Counseling regarding goals of care: Plan: Met with pt's sister Caitie along with the 2 representatives from [facility] on 05/28/22. LENGTHY (30-40 minute) discussion to address code status, current problems, possible Rx options, etc. Ene does not have a formal POA but Caitie was agreeable to making decisions on her sister's behalf. Explained that she is a very poor heart cath candidate -- if severe CAD is found - she would be a very poor CABG candidate. Caitie and the reps from [facility] all agreed that aggressive measures are not in Ene's best interest. Code status made DNR/DNI on 05/28/22. Dr Fernando had additional goals of care discussions after 05/28. Plan is for hospice at [facility] upon discharge. I updated pt's sister, Caitie, by phone this evening once again Plan hypokalemia - replace repeat BMP am Admission and Anticipated Discharge Date Admission Date: May 26, 2022 Subjective patient was fast asleep during my rounds (mid to late morning) I called her name several times - would not answer or open eyes staff report she was awake and alert at breakfast time - ate most of her breakfast got her am meds (valium, etc) and went to sleep promptly after that per staff no issues tele overnight - NSR Review of Systems Review of Systems: Unobtainable due to cognitive status Physical Exam Physical Exam: gen - dysmorphic in appearance, sleeping; comfortable, NAD neck - no JVD heart - RRR, s1 s2, no murmur lungs - decreased BS bases worse on right; no crackles; no wheeze; no increased work of breathing abd - soft, NT, minimal distension, BS+ ext - no edema, pulses 2+ b/l Results & Data Results & Data ([facility]) Vital Signs (Past 12 Hours) Vital Signs Temp Pulse Resp BP BP Pulse Ox O2 Del Method 06/03/22 15:30 37.0 C 89 18 113/68 96 Nasal Cannula 06/03/22 12:15 37.5 C 73 17 100/58 L 97 Nasal Cannula 06/03/22 06:53 36.8 C 86 20 115/71 95 Nasal Cannula 06/03/22 07:13 Nasal Cannula O2 Flow Rate 06/03/22 15:30 2 06/03/22 12:15 2 06/03/22 06:53 2 06/03/22 07:13 2 Laboratory Results Laboratory Results - last 24 hr 06/03/22 06:09 Sodium 145 Potassium 3.0 L Chloride 115 H Carbon Dioxide 24 Anion Gap 6 BUN 21 Creatinine 0.31 L Est Cr Clr Drug Dosing 129.5 Est GFR ( Amer) 132.1 Est GFR (Non-Af Amer) 114.0 BUN/Creatinine Ratio 67.7 H Glucose 107 H Calcium 7.2 L Magnesium 1.8 PG Care Time/CCT Total # of Minutes Spent Total Time Spent with Patient: Total time spent is greater than 50% in coordination of care (as documented) at patient's floor/unit and/or counseling patient: Coding Level of Care Code 98560 Subseq Hosp Care Lvl 2 Diagnoses Acute respiratory failure with hypoxia J96.01 Acute systolic (congestive) heart failure I50.21 Aspiration pneumonia J69.0 Elevated troponin R77.8 Ischemic cardiomyopathy I25.5 Stercoral colitis K52.89 Fecal impaction K56.41 Colon distention K63.89 Quadriplegic cerebral palsy G80.8 Hypertension I10 Diabetes E11.9 Seizure disorder G40.909 DVT prophylaxis Z29.9 Hypomagnesemia E83.42 Sinus tachycardia R00.0 Counseling regarding goals of care Z71.89
[2022-06-03] MEDS: lisinopril 5 MG TAB PO SCH (19:31)
[2022-06-03] MEDS: PHENobarbitaL 30 MG TAB PO SCH (19:35)
[2022-06-04] MEDS: CEFEPIME 2,000 MG in SYRINGE 0 ML IV SCH ×3 (00:13→18:06)
[2022-06-04] MEDS: OFLOXACIN 0.3% 75 DROPS/5 ML BTL OP SCH ×5 (00:13→20:08)
[2022-06-04 06:20] LABS: Hematocrit (blood only) 30.7 % (34.1-44.9); Hemoglobin 10.3 g/dl (12.0-16.0); Mean Corpuscular Hgb Conc 33.6 g/dL (32.0-36.0); Mean Corpuscular Volume 101.3 fL (80.0-100.0); Mean Platelet Volume 10.6 fL (9.4-12.3); Platelet Count 163 K/uL (130-400); RDW Coefficient of Variation 14.4 % (11.5-14.5); RDW Standard Deviation 52.1 fL (36.4-46.3); Red Blood Count 3.03 M/uL (3.93-5.22); White Blood Count 6.25 K/ul (4.8-10.8)
[2022-06-04 06:49] LABS: BUN Creatinine Ratio 63.3 (10-20); Calcium 7.7 mg/dl (8.5-10.1); Creatinine Clr Calc Pharmacy 135.4 ml/min; Est GFR (African American) 133.5 ml/min; Est GFR (Non-African American) 115.2 ml/min; Potassium 3.9 mmol/L (3.5-5.1)
[2022-06-04] MEDS: metroNIDAZOLE 500 MG/100 ML BAG IV SCH (08:10)
[2022-06-04] MEDS: BACLOFEN 20 MG TAB PO SCH ×4 (08:10→20:08)
[2022-06-04] MEDS: METOPROLOL SUCC 25MG EXT REL TAB PO SCH (08:10)
[2022-06-04] MEDS: HEPARIN SOD 5,000 UNIT/0.5 ML VIAL SQ SCH ×2 (08:10→20:09)
[2022-06-04] MEDS: PANTOprazole 40 MG TAB PO SCH (08:10)
[2022-06-04] MEDS: cycloSPORINE (RESTASIS) OPB SCH ×2 (08:11→20:09)
[2022-06-04] MEDS: POLYETHYLENE (MIRALAX) 17 GM PACK PO SCH (08:15)
[2022-06-04] MEDS: diazePAM 5 MG TABLET PO SCH ×3 (08:15→20:08)
[2022-06-04] MEDS: ASPIRIN 81 MG ECTAB PO SCH (08:26)
[2022-06-04] MEDS ORDERED: LORazepam 0.5 MG TAB PO PRN (13:37)
--- NOTE | 2022-06-04 13:39 | Hospitalist Progress Note ---
Date of Service June 04, 2022 Assessment & Plan (1) Acute respiratory failure with hypoxia: Plan: 2nd to #2 and #3 - resolved had been on CPAP - off for several days - now just on minimal amount of NC O2 cont supportive care for CHF cont IV abx for pneumonia (2) Acute systolic (congestive) heart failure: Plan: EF 25-30% on echo. numerous wall motion abnormalities c/w ischemic cardiomyopathy. also with akinetic region which is highly suggestive of prior [place]. diuresed early in the stay then became hypernatremic - diuretics on hold since then. IV BB now transitioned to PO metoprolol succinate. Is on low-dose BEBO. Use lasix prn. VERY POOR CANDIDATE for diagnostic heart cath, etc. See discussions below. (3) Aspiration pneumonia: Plan: initially was on rocephin 1gm IV daily and flagyl IV then developed recurrent fevers rocephin broadened to cefepime on 06/01/22 thus, day #4 of cefepime today; continue until discharge then change to levaquin if necessary day #7 of flagyl - will d/c such today of note - seen by speech - diet allowed aspiration precautions, etc (4) Elevated troponin: Plan: at minimum was due to myocardial demand ischemia in setting of #1/#2/#3 above given her echo findings I cannot rule out an ACS event she is nonverbal and a quadriplegic - likely to not express or show symptoms further, her EKGs have shown anterior ST changes her echo findings, need for cath, etc were discussed extensively with her sister (next of kin) and staff from [facility] everyone was in agreement that pursuing cath, etc was likely not in her best interest and thus cath was deferred will simply treat her CHF medically and likely to return to [facility] on Hospice (5) Ischemic cardiomyopathy: Plan: as noted on echo - see above (6) Stercoral colitis: Plan: resolved cont bowel maintenance multiple BMs yesterday & today (7) Fecal impaction: Plan: resolved (8) Colon distention: Plan: 2nd to #6 - resolved (9) Quadriplegic cerebral palsy: Plan: lives at [facility] patient is on chronic valium 5mg TID and baclofen 20mg qid likely contributes to her sedation (10) Hypertension: Plan: controlled with BB and BEBO (11) Diabetes: Plan: takes metformin 500 once daily this is on hold BSGs are controlled (12) Seizure disorder: Plan: cont phenobarbital most recent level wnl (13) DVT prophylaxis: Plan: heparin 5000 BID (14) Hypomagnesemia: Plan: replaced resolved (15) Sinus tachycardia: Plan: 2nd to systolic CHF resolved (16) Counseling regarding goals of care: Plan: Met with pt's sister Caitie along with the 2 representatives from [facility] on 05/28/22. LENGTHY (30-40 minute) discussion to address code status, current problems, possible Rx options, etc. Ene does not have a formal POA but Caitie was agreeable to making decisions on her sister's behalf. Explained that she is a very poor heart cath candidate -- if severe CAD is found - she would be a very poor CABG candidate. Caitie and the reps from [facility] all agreed that aggressive measures are not in Ene's best interest. Code status made DNR/DNI on 05/28/22. Dr Fernando had additional goals of care discussions after 05/28. Plan is for hospice at [facility] upon discharge. I updated pt's sister, Caitie, by phone this evening once again I corresponded with Rich, case management, and she will reach out to Caitie & [facility] to figure out the hospice post-d/c Plan hypokalemia - replaced/resolvd emotional lability - cont valirium; tiny dose ativan daily prn if necessary Admission and Anticipated Discharge Date Admission Date: May 26, 2022 Subjective tele overnight wnl during the visit the [facility] worker was present at bedside Ene was sleeping she awoke easily to her name being called she was moaning - I asked her if she was having pain and she shook her head no multiple times she then started crying, and calling out "Mama, mama" a few minutes later she went back to sleep Review of Systems Review of Systems: Unobtainable due to cognitive status Physical Exam Physical Exam: gen - dysmorphic in appearance, sleeping but awoke easily; seemed uncomfortable but denied pain; tearful/crying neck - no JVD heart - RRR, s1 s2, no murmur lungs - decreased BS bases; no crackles; no wheeze; no increased work of breathing abd - soft, NT, minimal distension, BS+ ext - no edema, pulses 2+ b/l neuro - contractures & muscle atrophy of hands, etc Results & Data Results & Data ([facility]) Vital Signs (Past 12 Hours) Vital Signs Temp Pulse Pulse Resp BP BP Pulse Ox 06/04/22 12:07 36.7 C 76 19 107/67 98 06/04/22 09:25 06/04/22 07:53 36.5 C 91 H 18 107/61 97 06/04/22 07:17 84 06/04/22 02:10 36.9 C 85 18 95/62 L 96 O2 Del Method O2 Flow Rate 06/04/22 12:07 Nasal Cannula 2 06/04/22 09:25 Nasal Cannula 2 06/04/22 07:53 Nasal Cannula 2 06/04/22 07:17 06/04/22 02:10 Nasal Cannula 2 Laboratory Results Laboratory Results - last 48 hr 06/04/22 06/04/22 05:37 05:37 WBC 6.25 RBC 3.03 L Hgb 10.3 L Hct 30.7 L MCV 101.3 H MCH 34.0 MCHC 33.6 RDW Std Deviation 52.1 H RDW Coeff of Con 14.4 Plt Count 163 MPV 10.6 Sodium 142 Potassium 3.9 D Chloride 111 H Carbon Dioxide 25 Anion Gap 6 BUN 19 Creatinine 0.30 L Est Cr Clr Drug Dosing 135.4 Est GFR ( Amer) 133.5 Est GFR (Non-Af Amer) 115.2 BUN/Creatinine Ratio 63.3 H Glucose 116 H Calcium 7.7 L PG Care Time/CCT Total # of Minutes Spent Total Time Spent with Patient: Total time spent is greater than 50% in coordination of care (as documented) at patient's floor/unit and/or counseling patient: Coding Level of Care Code 49150 Subseq Hosp Care Lvl 2 Diagnoses Acute respiratory failure with hypoxia J96.01 Acute systolic (congestive) heart failure I50.21 Aspiration pneumonia J69.0 Elevated troponin R77.8 Ischemic cardiomyopathy I25.5 Stercoral colitis K52.89 Fecal impaction K56.41 Colon distention K63.89 Quadriplegic cerebral palsy G80.8 Hypertension I10 Diabetes E11.9 Seizure disorder G40.909 DVT prophylaxis Z29.9 Hypomagnesemia E83.42 Sinus tachycardia R00.0 Counseling regarding goals of care Z71.89
[2022-06-04] MEDS: PHENobarbitaL 30 MG TAB PO SCH (20:09)
[2022-06-04] MEDS: lisinopril 5 MG TAB PO SCH (20:09)
[2022-06-05] MEDS: OFLOXACIN 0.3% 75 DROPS/5 ML BTL OP SCH ×6 (01:02→19:24)
[2022-06-05] MEDS: CEFEPIME 2,000 MG in SYRINGE 0 ML IV SCH ×3 (03:21→18:23)
[2022-06-05] MEDS: diazePAM 5 MG TABLET PO SCH ×3 (07:41→19:24)
[2022-06-05] MEDS: HEPARIN SOD 5,000 UNIT/0.5 ML VIAL SQ SCH ×2 (07:42→19:26)
[2022-06-05] MEDS: cycloSPORINE (RESTASIS) OPB SCH ×2 (07:43→19:26)
[2022-06-05] MEDS: BACLOFEN 20 MG TAB PO SCH ×4 (07:44→19:25)
[2022-06-05] MEDS: METOPROLOL SUCC 25MG EXT REL TAB PO SCH (07:44)
[2022-06-05] MEDS: ASPIRIN 81 MG ECTAB PO SCH (07:44)
[2022-06-05] MEDS: PANTOprazole 40 MG TAB PO SCH (07:44)
[2022-06-05] MEDS: POLYETHYLENE (MIRALAX) 17 GM PACK PO SCH (07:45)
--- NOTE | 2022-06-05 13:07 | XRay Report ---
XR chest 1V portable CLINICAL HISTORY: low-grade fever, recent pneumonia COMPARISON STUDY: Chest CT February 28, 2022. Chest radiograph May 28, 2022. FINDINGS: There is no pneumothorax. Trace bilateral pleural effusions are present. Cardiomediastinal silhouette is unremarkable. Interstitial thickening shown on exam of May 28, 2022 has resolved. However, multifocal airspace opacities are noted, including left basilar consolidation and airspace o pacities within the right lung. IMPRESSION: Multifocal airspace opacities consistent with pneumonia. Continued radiographic follow up to ensure resolution is recommended. ACT 112: Negative or not required by law. Electronically signed by: Auugstus Jeffrey M.D. 06/05/2022 1:05 PM
[2022-06-05] MEDS: lisinopril 5 MG TAB PO SCH (19:25)
[2022-06-05] MEDS: PHENobarbitaL 30 MG TAB PO SCH (19:29)
--- NOTE | 2022-06-05 20:58 | Hospitalist Progress Note ---
Date of Service June 05, 2022 Assessment & Plan (1) Acute respiratory failure with hypoxia: Plan: 2nd to #2 and #3 - resolved had been on CPAP - off for several days - now just on minimal amount of NC O2 cont supportive care for CHF cont IV abx for pneumonia at d/c send on oxygen NC due to hospice status (2) Acute systolic (congestive) heart failure: Plan: EF 25-30% on echo. numerous wall motion abnormalities c/w ischemic cardiomyopathy. also with akinetic region which is highly suggestive of prior [place]. diuresed early in the stay then became hypernatremic - diuretics on hold since then. IV BB now transitioned to PO metoprolol succinate. Is on low-dose BEBO. will stop due to low-normal BPs and transition to hospice but reasonable to cont beta jackson. Use lasix prn after discharge. VERY POOR CANDIDATE for diagnostic heart cath, etc. See discussions below. (3) Aspiration pneumonia: Plan: initially was on rocephin 1gm IV daily and flagyl IV then developed recurrent fevers rocephin broadened to cefepime on 06/01/22 thus, day #5 of cefepime today; continue until discharge then change to levaquin if necessary day #7 of flagyl - will d/c such today of note - seen by speech - diet allowed aspiration precautions, etc (4) Elevated troponin: Plan: at minimum was due to myocardial demand ischemia in setting of #1/#2/#3 above given her echo findings I cannot rule out an ACS event she is nonverbal and a quadriplegic - likely to not express or show symptoms further, her EKGs have shown anterior ST changes her echo findings, need for cath, etc were discussed extensively with her sister (next of kin) and staff from [facility] everyone was in agreement that pursuing cath, etc was likely not in her best interest and thus cath was deferred will simply treat her CHF medically and likely to return to [facility] on Hospice (5) Ischemic cardiomyopathy: Plan: as noted on echo - see above (6) Stercoral colitis: Plan: resolved cont bowel maintenance multiple BMs yesterday & today (7) Fecal impaction: Plan: resolved (8) Colon distention: Plan: 2nd to #6 - resolved (9) Quadriplegic cerebral palsy: Plan: lives at [facility] patient is on chronic valium 5mg TID and baclofen 20mg qid likely contributes to her sedation (10) Hypertension: Plan: controlled with BB and BEBO (11) Diabetes: Plan: takes metformin 500 once daily this is on hold BSGs are controlled resume metformin at d/c (12) Seizure disorder: Plan: cont phenobarbital most recent level wnl (13) DVT prophylaxis: Plan: heparin 5000 BID (14) Hypomagnesemia: Plan: replaced resolved (15) Sinus tachycardia: Plan: 2nd to systolic CHF resolved (16) Counseling regarding goals of care: Plan: Met with pt's sister Caitie along with the 2 representatives from [facility] on 05/28/22. LENGTHY (30-40 minute) discussion to address code status, current problems, possible Rx options, etc. Ene does not have a formal POA but Caitie was agreeable to making decisions on her sister's behalf. Explained that she is a very poor heart cath candidate -- if severe CAD is found - she would be a very poor CABG candidate. Caitie and the reps from [facility] all agreed that aggressive measures are not in Ene's best interest. Code status made DNR/DNI on 05/28/22. Dr Fernando had additional goals of care discussions after 05/28. Plan is for hospice at [facility] upon discharge. I updated pt's sister, Caitie, by phone this evening once again -- told her hospice has been set up and Ene will transfer back to [facility] tomorrow with hospice in place Plan hypokalemia - replaced/resolved BMP am hopeful for d/c tomorrow Admission and Anticipated Discharge Date Admission Date: May 26, 2022 Subjective patient was being fed by staff during my visit I mentioned to Ene she could "go home" tomorrow and she had a big smile no issues per staff moving bowels no respiratory distress Review of Systems Review of Systems: Unobtainable due to cognitive status (nonverbal ) Physical Exam Physical Exam: gen - dysmorphic in appearance, awake, eyes open, smiled once ! neck - no JVD heart - RRR, s1 s2, no murmur lungs - decreased BS bases; no crackles; no wheeze; no increased work of breathing abd - soft, NT, ND, BS+ ext - no edema, pulses 2+ b/l neuro - contractures & muscle atrophy of hands, etc psych - nonverbal, just moans/grunts Results & Data Results & [facility] ([facility]) Vital Signs (Past 12 Hours) Vital Signs Temp Pulse Pulse Resp BP BP Pulse Ox 06/05/22 19:20 06/05/22 19:00 37.0 C 78 22 108/67 96 06/05/22 14:08 79 06/05/22 16:00 36.8 C 80 20 113/67 96 06/05/22 12:26 36.6 C 80 19 104/67 96 O2 Del Method O2 Flow Rate 06/05/22 19:20 Nasal Cannula 1 06/05/22 19:00 Nasal Cannula 1 06/05/22 14:08 06/05/22 16:00 Nasal Cannula 2 06/05/22 12:26 Nasal Cannula 2 PG Care Time/CCT Total # of Minutes Spent Total Time Spent with Patient: Total time spent is greater than 50% in coordination of care (as documented) at patient's floor/unit and/or counseling patient: Coding Level of Care Code 71035 Subseq Hosp Care Lvl 2 Diagnoses Acute respiratory failure with hypoxia J96.01 Acute systolic (congestive) heart failure I50.21 Aspiration pneumonia J69.0 Elevated troponin R77.8 Ischemic cardiomyopathy I25.5 Stercoral colitis K52.89 Fecal impaction K56.41 Colon distention K63.89 Quadriplegic cerebral palsy G80.8 Hypertension I10 Diabetes E11.9 Seizure disorder G40.909 DVT prophylaxis Z29.9 Hypomagnesemia E83.42 Sinus tachycardia R00.0 Counseling regarding goals of care Z71.89
[2022-06-06] MEDS: OFLOXACIN 0.3% 75 DROPS/5 ML BTL OP SCH ×4 (00:39→11:48)
[2022-06-06] MEDS: CEFEPIME 2,000 MG in SYRINGE 0 ML IV SCH ×2 (04:38→11:48)
[2022-06-06 06:53] LABS: BUN Creatinine Ratio 51.7 (10-20); Calcium 7.9 mg/dl (8.5-10.1); Creatinine Clr Calc Pharmacy 127.8 ml/min; Est GFR (Non-African American) 116.5 ml/min; Potassium 3.3 mmol/L (3.5-5.1)
[2022-06-06] MEDS: diazePAM 5 MG TABLET PO SCH (07:36)
[2022-06-06] MEDS: cycloSPORINE (RESTASIS) OPB SCH (08:11)
[2022-06-06] MEDS: PANTOprazole 40 MG TAB PO SCH (08:11)
[2022-06-06] MEDS: ASPIRIN 81 MG ECTAB PO SCH (08:11)
[2022-06-06] MEDS: METOPROLOL SUCC 25MG EXT REL TAB PO SCH (08:11)
[2022-06-06] MEDS: BACLOFEN 20 MG TAB PO SCH ×2 (08:11→12:09)
[2022-06-06] MEDS: POLYETHYLENE (MIRALAX) 17 GM PACK PO SCH (08:12)
[2022-06-06] MEDS: HEPARIN SOD 5,000 UNIT/0.5 ML VIAL SQ SCH (08:12)
[2022-06-06] MEDS ORDERED: POTASSIUM CHLORIDE CRTAB 20 MEQ TABCR PO STA (10:04)
--- NOTE | 2022-06-14 13:26 | Discharge Summary ---
Date of Service date of admission - May 26, 2022 date of discharge - June 06, 2022 Admission HPI Per Admitting Provider The patient is a 71-year-old female with a past medical history including quadriplegic cerebral palsy, pressure ulcer of coccygeal region stage III, pressure ulcer of contiguous region involving back and buttock stage I, generalized weakness, acute dehydration, acute UTI hyperlipidemia, muscle spasm, hypertension, dry eye and phenobarbital toxicity. The patient had reported to family that she was having discomfort in her left lower quadrant, and CT showed a likely stercoral proctocolitis with associated ileus versus functional obstruction. Her aerodynamics professor reported that while she was in the hospital emergency department, her bowels to start to move, that as I examined her she was significantly less tender, and seem to be improving symptom briscoe Principal Diagnosis 1. fecal impaction/stercoral colitis - resolved 2. newly detected severe systolic congestive heart failure, likely 2nd ischemic cardiomyopathy 3. probable coronary artery disease 4. bilateral pneumonia 5. transition to hospice 6. cerebral palsy 7. acute hypoxic respiratory failure 2nd to #2, #4 Discharge Exam gen - dysmorphic in appearance, awake, eyes open neck - no JVD heart - RRR, s1 s2, no murmur lungs - decreased BS bases; no crackles; no wheeze; no increased work of breathing abd - soft, NT, ND, BS+ ext - no edema, pulses 2+ b/l neuro - contractures & muscle atrophy of hands, etc psych - nonverbal, just moans/grunts Discharge Data Allergies Allergy/AdvReac Type Severity Reaction Status Date / Time ampicillin Allergy Unknown rash Verified 05/25/22 22:17 carbidopa Allergy Unknown Unknown Verified 05/25/22 22:17 levodopa Allergy Unknown Unknown Verified 05/25/22 22:17 Penicillins Allergy Unknown rash Verified 05/25/22 22:17 Consultations Speech Therapy Procedures Performed Echocardiogram - EF 25-30%; multiple areas of akinesis and hypokinesis of LV. Normal valve function. Ordered Studies Abdomen/Pelvis CT 05/25/22 18:49 CT SCAN OF THE ABDOMEN AND PELVIS WITHOUT IV CONTRAST CLINICAL HISTORY: Generalized abdominal pain. COMPARISON STUDY: Abdominal CT dated 02/28/2022. TECHNIQUE: CT scan of the abdomen and pelvis is performed from the lung bases to the proximal femora. Images are reviewed in the axial, sagittal, and coronal planes. IV contrast was not administered for this examination. Note that the examination is significantly suboptimal without oral or IV contrast. There is also motion artifact, as well as streak artifact from the arms which could not be elevated above the abdomen. A dose lowering technique was utilized adhering to the principles of ALARA. CT DOSE: 451.17 mGy.cm FINDINGS: Lung bases: The heart is enlarged and without pericardial effusion. The coronary arteries are densely calcified. There is a small hiatal hernia. There is dependent consolidation. No pleural effusion is identified. Liver: The unenhanced liver is normal in size, contour, and attenuation. There is no intrahepatic biliary ductal dilatation. Gallbladder: Mildly distended but otherwise normal in appearance. Spleen: Normal in size and attenuation. Pancreas: The unenhanced pancreas is moderately atrophic and grossly unremarkable. Adrenal glands: Unremarkable. Kidneys: The unenhanced kidneys demonstrate mild cortical atrophy and are without hydronephrosis. There are no renal calculi identified. Bilateral renal cysts measuring up to 4.2 cm. Abdominal vasculature: The abdominal aorta is normal in course and caliber. Bowel: There is rectosigmoid fecal impaction and severe constipation. There is wall thickening of the rectosigmoid colon with mild surrounding infiltration. The sigmoid measures up to 8.3 cm diameter. The small bowel loops are normal in caliber. The appendix is not visualized. Peritoneum: There is no intraperitoneal free air or abdominal ascites. Lymphadenopathy: None. Pelvic viscera: The bladder, uterus, and adnexa are normal as visualized. There is marked fatty atrophy of the right iliopsoas and bilateral pelvic musculature. Skeletal structures: The skeletal structures are osteopenic. Mild lumbosacral spondylosis is observed. Advanced degenerative change is seen in the hips. Destructive changes again noted involving the right femoral head with a joint effusion and numerous bony fragments. No lytic or blastic lesions are seen. IMPRESSION: 1. Significant suboptimal examination lateral IV contrast. There is also streak and motion artifact. 2. Rectosigmoid fecal impaction and severe constipation. 3. Wall thickening of the rectosigmoid with mild surrounding infiltration suggests stercoral proctocolitis. Clinical correlation required. 4. There is significant colonic distention and this could represent colonic ileus versus functional obstruction due to fecal burden. 5. The small bowel loops are normal in caliber. 6. Dependent consolidation likely represents scarring/atelectasis. Clinical correlation will be required. 7. Additional findings as above. ACT 112: Negative or not required by law. Electronically signed by: Abimael Jackson M.D. 05/25/2022 8:20 PM Chest X-Ray 05/26/22 19:24 XR chest 1V portable CLINICAL HISTORY: hypoxia, cough; ?pneumonia COMPARISON STUDY: Chest radiograph and chest CT February 28, 2022. FINDINGS: Patient is rotated. There is no pneumothorax. Small bilateral pleural effusions are present. Moderate interstitial thickening is noted. This represent pulmonary edema. Cardiomediastinal silhouette is stable. IMPRESSION: Moderate interstitial pulmonary edema with small bilateral pleural effusions. ACT 112: Negative or not required by law. Electronically signed by: Augustus Jeffrey M.D. 05/26/2022 8:00 PM KUB X-Ray 05/26/22 19:26 KUB CLINICAL HISTORY: fecal impaction/obstipation COMPARISON STUDY: CT of the abdomen and pelvis May 25, 2022. FINDINGS: Chronic deformity of the right hip is noted. There is severe left hip osteoarthritis. Large amount of stool within the rectum is noted. Multiple loops of distended small large bowel are noted. These are similar to prior exam. IMPRESSION: 1. Large amount of stool within the rectum. 2. No significant change in small and large bowel dilatation. ACT 112: Negative or not required by law. Electronically signed by: Augustus Jeffrey M.D. 05/26/2022 8:12 PM Chest X-Ray 05/27/22 07:15 XR chest 1V portable CLINICAL HISTORY: Pulmonary edema. COMPARISON STUDY: Chest CT February 28, 2022. Chest radiograph May 26, 2022. FINDINGS: There is no pneumothorax. Small bilateral pleural effusions have improved. Pulmonary edema is noted. This has moderately improved since prior exam. Cardiomediastinal silhouette is stable. Patient is rotated. No consolidation to suggest pneumonia. IMPRESSION: Interval improvement in pulmonary edema and small bilateral pleural effusions. ACT 112: Negative or not required by law. Electronically signed by: Augustus Jeffrey M.D. 05/27/2022 6:53 AM Chest X-Ray 05/27/22 23:54 XR chest 1V portable HISTORY: tachypnea COMPARISON: Chest 05/27/2022. FINDINGS: No pneumothorax. The cardiac silhouette remains top normal in size. There are calcifications within the aortic knob. Slight progression of the interstitial/vascular thickening and right perihilar hazy airspace opacities. Th is favors a progressive asymmetric pulmonary edema. Suspect trace bilateral pleural effusions. IMPRESSION: Slight progression of the mild asymmetric pulmonary edema. ACT 112: Negative or not required by law. Electronically signed by: Armin Marmolejo M.D. 05/28/2022 8:24 AM Chest X-Ray 06/05/22 09:45 XR chest 1V portable CLINICAL HISTORY: low-grade fever, recent pneumonia COMPARISON STUDY: Chest CT February 28, 2022. Chest radiograph May 28, 2022. FINDINGS: There is no pneumothorax. Trace bilateral pleural effusions are present. Cardiomediastinal silhouette is unremarkable. Interstitial thickening shown on exam of May 28, 2022 has resolved. However, multifocal airspace opacities are noted, including left basilar consolidation and airspace opacities within the right lung. IMPRESSION: Multifocal airspace opacities consistent with pneumonia. Continued radiographic follow up to ensure resolution is recommended. ACT 112: Negative or not required by law. Electronically signed by: Augustus Jeffrey M.D. 06/05/2022 1:05 PM Hospital Course (1) Acute respiratory failure with hypoxia: 2nd to #2 and #3 - resolved had been on CPAP - off for several days - now just on minimal amount of NC O2 2 liters received IV diuresis and IV antibiotics during the stay discharging back to her senior living on NC O2 with hospice services in place (2) Acute systolic (congestive) heart failure: EF 25-30% on echo. numerous wall motion abnormalities c/w ischemic cardiomyopathy. also with akinetic region which is highly suggestive of prior MN. diuresed early in the stay. VERY POOR CANDIDATE for diagnostic heart cath, etc. See discussions below. discharged on metoprolol succinate 12.5mg daily. NOT discharged on BEBO due to low BPs and transitioning to hospice status. (3) Aspiration pneumonia: bilateral completed nearly 7 days of antibiotic therapy seen by speech - dysphagia diet not recommended due to transitioning to hospice status (4) Elevated troponin: at minimum was due to myocardial demand ischemia in setting of #1/#2/#3 above given her echo findings I could not rule out an ACS event her EKGs did show anterior ST changes while here her echo findings, need for cath, etc were discussed extensively with her sister (next of kin) and staff from [facility] everyone was in agreement that pursuing cath, etc was likely not in her best interest and thus cath was deferred transitioning to hospice status at discharge (5) Ischemic cardiomyopathy: as noted on echo - see above (6) Stercoral colitis: present on admission resolved s/p multiple enemas, etc cont bowel maintenance uopn discharge (7) Fecal impaction: resolved (8) Colon distention: 2nd to #6 - resolved (9) Quadriplegic cerebral palsy: lives at [facility] patient is on chronic valium 5mg TID and baclofen 20mg qid (10) Hypertension: (11) Diabetes: metformin discontinued due to transition to Hospice (12) Seizure disorder: cont phenobarbital most recent level wnl (13) Hypomagnesemia: replaced resolved (14) Sinus tachycardia: 2nd to systolic CHF resolved (15) Counseling regarding goals of care: Met with pt's sister Caitie along with 2 representatives from [facility] on 05/28/22. LENGTHY discussion held to address code status, current problems, possible Rx options, etc. Ene does not have a formal POA but Caitie was agreeable to making decisions on her sister's behalf. Explained that she is a very poor heart cath candidate -- if severe CAD is found - she would be a very poor CABG candidate. Caitie and the representatives from [facility] all agreed that aggressive measures were not in Ene's best interest. Code status made DNR/DNI on 05/28/22. Dr Nevin Fernando had additional goals of care discussions after 05/28/22 with her sister and with [facility]. Plan is for hospice at [facility] upon discharge. (16) Hospice care patient: Enrolling in Hospice upon return to [facility]. Prescriptions for roxanol, zofran, ativan, etc were given to treat all symptoms upon return to her senior living. Total Time Total Time Spent Total Time Spent (In Minutes): 45 Discharge Plan Discharge Items Patient Disposition: Hospice - Home Reason For Visit: STERCORAL COLITIS Discharge Diagnosis: 1. fecal impaction/stercoral colitis - resolved; moving bowels well 2. newly detected severe congestive heart failure, likely due to blocked coronary arteries 3. probable coronary artery disease 4. bilateral pneumonia 5. transition to hospice Activity: Resume your previous activity Non-emergency contact: Primary Care Provider Call non-emergency contact if: your symptoms worsen, your pain is not controlled and your pain is worsening Follow-up/Referrals: Tasneem Lacey CRNP [Primary Care Provider] - 06/13/22 1:05 pm (YOU WILL SEE DR. VENKATESH MOJICA) Diet: Regular Diet Texture: Pureed (blended smooth) Addtl Attending Provider Instructions: Ms Amanda was hospitalized for severe abdominal pain due to fecal impaction. The fecal impaction is when a large amount of stool is blocking the rectum and therefore the stool is unable to pass. The impaction caused "stecoral colitis" which is when the colon becomes irritated due to the impacted stool. These issues are resolved and Ene is having regular soft stools. The wild moving forward is to use senna with miralax on daily basis to prevent recurrence of impaction. During her stay she had difficulty breathing due to a combination of water build-up in the lungs from congestive heart failure as well as pneumonia. The breathing gradually improved with antibiotics and diuretics (water pills). Ene's heart ultrasound showed severe weakening of the heart - this is called congestive heart failure. We suspect that Ene has coronary artery disease (CAD). CAD causes blocked arteries in the heart which in turn can cause heart attacks. CAD also can cause congestive heart failure. After many discussions Ene will be returning to [facility] with hospice services. Of note - many medications that will not provide benefit or comfort to Ene have been discontinued (example - vitamins). See full list. Recommendations - 1. for edema of the legs/ankles and/or difficulty breathing from congestive heart failure - * furosemide 20mg daily as needed 2. for pain or air hunger - * morphine liquid - 5mg every 6 hours as needed 3. for nausea and/or vomiting - * ondansetron 4mg every 6 hours as needed 4. for prevention and treatment of constipation - * miralax 17gm (1 serving) mixed in 8 ounces of fluid daily * senna 2 tabs daily 5. for anxiety/agitation - * lorazepam 0.5mg every 6 hours as needed 6. to keep breathing comfortable use nasal cannula oxygen 2 liters continuously 7. final dose of antibiotic for pneumonia - levofloxacin 750mg once on 06/07/22 Upon return to [facility] - if there is worsening pain, worsening breathing, constipation, urinary retention, questions, concerns, or any problems - please contact the [facility] by phone. It was our pleasure to care for Ene at [facility]! -Dr Álvarez Pending Studies at Discharge: No Stand-Alone Forms: My [facility] Medications and DC Order Prescriptions: New metoprolol succinate 25 mg Tablet Extended Release 24 Hr 12.5 mg PO QAM Qty: 30 2RF senna 8.6 mg capsule 17.2 mg PO DAILY Qty: 60 2RF Rx Instructions: for constipation prevention furosemide [Lasix] 20 mg tablet 20 mg PO DAILY PRN (Reason: edema of legs/feet or difficulty breathing) Qty: 30 0RF ondansetron 4 mg tablet,disintegrating 4 mg PO Q6H PRN (Reason: nausea and vomiting) Qty: 10 0RF (DME) Oxygen Home Liters Per Minute See Rx Instructions .ROUTE .MEDSUPPLY Qty: 1 0RF Rx Instructions: 2 liters continuously for comfort/hospice/palliative purposes. morphine concentrate 100 mg/5 mL (20 mg/mL) solution 5 mg PO Q6H PRN (Reason: pain or air hunger) Qty: 15 0RF Rx Instructions: for hospice/palliative purposes. lorazepam [Ativan] 0.5 mg tablet 0.5 mg PO Q6H PRN (Reason: anxiety, agitation or refractory nausea/vomiting) Qty: 14 0RF Continued omeprazole 20 mg capsule,delayed release(DR/EC) 20 mg PO QAM Saline Nasal Mist 0.65 % Aerosol,Errol 2 spray INTRANASAL QAM olopatadine 0.2 % Drops 1 drp OPHTHALMIC (EYE) QAM Rx Instructions: use to affected eye baclofen 20 mg Tablet 20 mg PO QID Debrox 6.5 % Drops 5 drp OTIC (EAR) WK Rx Instructions: saturday fluticasone propionate 50 mcg/actuation spray,suspension 1 spray intranasal QAM Rx Instructions: 1 spray to each nostril daily loratadine 10 mg Tablet 10 mg PO QAM diazepam 5 mg Tablet 5 mg PO TID Rx Instructions: 8am,4pm,8pm phenobarbital 97.2 mg tablet 97.2 mg PO QPM nitrofurantoin macrocrystal 50 mg capsule 50 mg PO DAILY acetaminophen [Tylenol Extra Strength] 500 mg Tablet 1,000 mg PO Q6H PRN (Reason: Pain) carboxymethylcellulose sodium [Refresh Tears] 0.5 % Drops 1 drp OPB QPM Rx Instructions: daily at 4pm cyclosporine [Restasis] 0.05 % dropperette 1 drp ophthalmic (eye) Q12 Changed polyethylene glycol 3350 [Miralax] 17 gram/dose Powder 17 g PO DAILY Qty: 1 0RF Discontinued Cerovite Senior Tablet 1 tab PO DAILY docusate sodium [Stool Softener] 100 mg Capsule 200 mg PO QAM amlodipine [Norvasc] 5 mg Tablet 5 mg PO HS Qty: 30 3RF metformin 500 mg tablet 500 mg PO QAM atorvastatin 20 mg Tablet 20 mg PO PM meloxicam 7.5 mg Tablet 7.5 mg PO QAM cholecalciferol (vitamin D3) [Vitamin D3] 1,000 unit Tablet 1,000 unit PO QAM calcium carbonate-vit D3-min [Calcium 600 + Minerals] 600 mg calcium- 400 unit Tablet 1 tab PO DAILY loperamide 2 mg Tablet 2 mg PO QID PRN (Reason: Diarrhea) acetaminophen [Tylenol Extra Strength] 500 mg Tablet 1,000 mg PO Q6H PRN (Reason: Pain) lisinopril 10 mg Tablet 10 mg PO QPM Discharge Orders: Discharge Order (Routine); Ordered 06/06/22 Ordered By: Isra Álvarez Admission Data Admit Date/Time: 05/26/22 20:31 Attending Provider: Isra Álvarez Admit Provider: Emmanuel Rutherford Primary Care Provider: Tasneem Lacey Other Providers: Emmanuel Rutherford ; [facility] Other Interventions: Discharge Summary Assessment (RN) Last Done: 06/06/22 13:10 Coding Level of Care Code D/C DAY MANAGEMENT >30 MINS Diagnoses Acute respiratory failure with hypoxia J96.01 Acute systolic (congestive) heart failure I50.21 Aspiration pneumonia J69.0 Elevated troponin R77.8 Ischemic cardiomyopathy I25.5 Stercoral colitis K52.89 Fecal impaction K56.41 Colon distention K63.89 Quadriplegic cerebral palsy G80.8 Hypertension I10 Diabetes E11.9 Seizure disorder G40.909 Hypomagnesemia E83.42 Sinus tachycardia R00.0 Counseling regarding goals of care Z71.89 Hospice care patient Z51.5
== END 2022-06-06 14:25 | disposition hospice, home (50) | DRG 391 ==
LOC: 3N 15:15 → ED 15:15 → SUATTDRO 05-26 00:31 → 3N 05-26 02:37 → SUATTDRO 05-26 20:31 → 2S 05-26 22:18
DX: I25.5 Ischemic cardiomyopathy; Z51.5 Encounter for palliative care; E87.0 Hyperosmolality and hypernatremia; K56.7 Ileus, unspecified; G40.909 Epilepsy, unspecified, not intractable, without status epilepticus; Z88.0 Allergy status to penicillin; J96.01 Acute respiratory failure with hypoxia; Z66 Do not resuscitate; K56.41 Fecal impaction; I21.A1 Myocardial infarction type 2; I50.21 Acute systolic (congestive) heart failure; E11.9 Type 2 diabetes mellitus without complications; K52.89 Other specified noninfective gastroenteritis and colitis; Z88.1 Allergy status to other antibiotic agents; I11.0 Hypertensive heart disease with heart failure; E87.20 Acidosis, unspecified; J69.0 Pneumonitis due to inhalation of food and vomit; G80.8 Other cerebral palsy